=== PATIENT | female | born 1945 | race Caucasian/White ===

== ENCOUNTER → 2016-12-22 | Outpatient (CLI) | payer OTHER, BC ==
[~2016-12-22] MED LIST: ASPCH81 PO; FURO80TA63 PO; METO50TA16 PO; OMEG10007 PO; POTA-335 PO; PRAV20TA PO
--- NOTE | 2016-12-23 12:22 | MAMMOGRAPHY REPORT ---
BILATERAL DIGITAL SCREENING MAMMOGRAM TOMOSYNTHESIS WITH CAD: 12/22/2016 CLINICAL HISTORY: Routine screening. Patient has no complaints. TECHNIQUE: Breast tomosynthesis in addition to standard 2D mammography was performed. Current study was also evaluated with a Computer Aided Detection (CAD) system. COMPARISON: Comparison is made to exams dated: 12/17/2015 mammogram, 12/12/2014 mammogram, 12/06/2013 m ammogram, 11/16/2012 mammogram, 10/28/2011 mammogram, and 10/23/2010 mammogram - [facility]. BREAST COMPOSITION: There are scattered areas of fibroglandular density in both breasts. FINDINGS: There are a few benign-appearing calcifications scattered bilaterally. No suspicious mass, architectural distortion or cluster of suspicious microcalcifications is seen. IMPRESSION: ACR BI-RADS CATEGORY 1: NEGATIVE There is no mammographic evidence of malignancy. A 1 year screening mammogram is recommended. The pa tient will receive written notification of the results. Approximately 10% of breast cancers are not detected with mammography. A negative mammographic report should not delay biopsy if a clinically suggestive mass is present. Lillie Blank M.D. ay/:12/22/2016 16:23:56 Vamp Strap Ironer: Melissa LEONARD(Pretty)(Alex)(BD), [facility] letter sent: Normal 1/2 BI-RADS Code: ACR BI-RADS Category 1: Negative
== END | disposition home or self-care (01) ==
LOC: C.MAMM 09:38
PROVIDERS: ATTEND Obstetrics & Gynecology
DX: Z12.31 Encounter for screening mammogram for malignant neoplasm of breast (principal)

== ENCOUNTER → 2017-07-03 | Outpatient (CLI) | payer OTHER, BC | END | disposition home or self-care (01) | LOC: C.PAPS 15:35 | PROVIDERS: ATTEND Obstetrics & Gynecology | DX: N76.2 Acute vulvitis (principal) ==

== ENCOUNTER 2019-10-13 14:10 | Observation (INO) ==
--- NOTE | 2019-10-13 14:35 | Emergency Department Note ---
History of Present Illness General Chief complaint: Food Bolus Stated complaint: BONE STUCK IN THROAT Time Seen by Provider: 10/13/19 14:18 Source: patient Mode of arrival: ambulatory Limitations: no limitations History of Present Illness Maximum Pain Intensity: 0 This patient is a healthy 74-year-old white female who comes in complaining of "I feel like there is a chicken bone stuck in my throat". She said this happened around 145. There was no episode of choking but she just feels like there is a GI aching pain in her throat she points to the area of about the St apple. She is able to swallow without any difficulty and is not drooling. She has no shortness of breath. No fever or chills there is no actual choking episode. She was well prior to this no recent illness. No chest pain or shortness of breath. No nausea vomiting or diarrhea. She is had no known exposure to COVID. No flulike symptoms. She was seen here at the end of August after she fell and has had some back pain but is doing better. Home Medications Home Medications Medication Instructions Recorded Confirmed Type aspirin 81 mg PO DAILY 01/31/18 10/13/19 History calcium carbonate-vitamin D3 1 tab PO WK 01/31/18 10/13/19 History [Caltrate 600 + D] lisinopril-hydrochlorothiazide 1 tab PO DAILY 01/31/18 10/13/19 History lorazepam 0.5 mg PO TID PRN 01/31/18 10/13/19 History rosuvastatin 5 mg PO DAILY 09/15/19 10/13/19 History Allergies Allergy/AdvReac Type Severity Reaction Status Date / Time aspirin AdvReac Unknown Nausea Verified 09/15/19 17:27 Past Med/Surg History Medical History High cholesterol HTN (hypertension) Obesity Surgical History History of hip surgery Hx of tubal ligation Family History Other No pertinent family history Social History Smoking Status: Never smoker Hx Alcohol Use: No Hx Substance Use: No Preferred Language: Luxembourgish Communication Ability: Effective Visual Impairment: No Limitations Hearing Ability: Normal Videogame Designer Required: No Beliefs That Will Affect Care: None Current Living Situation: Alone current occupational status: retired Feels Safe at Home: Yes Immunizations: Past medical historydenies cardiac disease or diabetes. Denies surgery. Social history denies alcohol and tobacco use Review of Systems A total of 10 systems reviewed and were otherwise negative Physical Exam Vital Signs Vital Signs - 24 hr 10/13/19 14:14 10/13/19 16:14 10/13/19 18:00 Temperature 36.6 C Temperature Source Oral Pulse Rate 96 H Pulse Rate [Finger] 98 H 98 H Pulse Rhythm Regular Pulse Rhythm [Finger] Regular Pulse Strength Normal Pulse Strength [Finger] Normal Respiratory Rate 18 20 18 Respiratory Effort / Characteristics Non-Labored Spontaneous Non-Labored Spontaneous Non-Labored Respiratory Depth Normal Normal Normal Respiratory Pattern Regular Regular Regular Blood Pressure 155/75 H Blood Pressure [Left Arm] 183/70 H 208/96 H Blood Pressure Mean 101 Blood Pressure Mean [Left Arm] 107 133 Blood Pressure Position [Left Arm] Lying Sitting Pulse Oximetry 98 98 95 Oxygen Delivery Method Room Air Room Air Room Air Sepsis Recent Fever Within 48 Hours No Sepsis New/Unexplained Change in Mental Status No Sepsis Action Taken by Nursing No Action Required 10/13/19 19:20 Temperature Temperature Source Pulse Rate 99 H Pulse Rate [Finger] Pulse Rhythm Pulse Rhythm [Finger] Pulse Strength Pulse Strength [Finger] Respiratory Rate 20 Respiratory Effort / Characteristics Respiratory Depth Respiratory Pattern Blood Pressure 158/96 H Blood Pressure [Left Arm] Blood Pressure Mean Blood Pressure Mean [Left Arm] Blood Pressure Position [Left Arm] Pulse Oximetry 95 Oxygen Delivery Method Room Air Sepsis Recent Fever Within 48 Hours Sepsis New/Unexplained Change in Mental Status Sepsis Action Taken by Nursing General: Well developed well nourished non-ill appearing older femaler who appears iin no acute distress, breathing comfortably on room air. Normal speech HEENT: Normal cephalic atraumatic. Pupils are equal round and reactive to light. Extraocular movements are intact. Oropharynx is pink with moist mucous membranes. No swelling of the mouth lips or tongue. No fb seen, no drooling. Neck: Supple with a midline trachea. No meningeal signs or stiffness, no JVD or bruits. No Stridor. Chest: Clear to auscultation bilaterally. No wheezes or rhonchi. No increased work of breathing. Heart: Regular rate and rhythm without murmurs or gallops. Abdomen: Soft nontender, nondistended without rebound guarding or rigidity. Extremities: No cyanosis clubbing or edema. No calf tenderness or assymetry Spine/Back. Non tender to palpation. No CVA tenderness Skin: Good turgor without rashes. Neurologic exam: Cranial nerves two through 12 are intact. Motor and sensation are intact and symmetrical throughout. Course Administered Medications Discontinued Medications Sodium Chloride (Nss) 500 mls @ 999 mls/hr IV .Q31M ONE Stop: 10/13/19 16:14 Last Infusion: 10/13/19 21:20 Dose: 0 mls/hr Documented by: [id number] Admin: 10/13/19 16:02 Dose: 999 mls/hr Documented by: [id number] Metoprolol Tartrate (Lopressor) Confirm Administered Dose 5 mg IV .STK-MED ONE Stop: 10/13/19 20:32 Last Admin: 10/13/19 20:28 Dose: 5 mg Documented by: [id number] Medical Decision Making Differential Diagnosis Foreign body, abrasion, dehydration, airway compromise, abscess, edema Medical Records Attestation: I reviewed the patient's medical records. Home Medications Current Medication List: was personally reviewed by me Laboratory Data Attestation: I reviewed the patient's lab results. Result diagrams: 10/13/19 15:34 10/13/19 15:34 Lab Results 10/13/19 10/13/19 10/13/19 Range/Units 15:34 15:34 15:34 WBC 5.52 (4.8-10.8) K/uL RBC 4.30 (4.2-5.4) M/uL Hgb 14.6 (12.0-16.0) g/dL Hct 41.5 (37-47) % MCV 96.5 (80-100) fL MCH 34.0 (25-34) pg MCHC 35.2 (32-36) g/dL RDW Std Deviation 46.8 H (36.4-46.3) fL RDW Coeff of Gee 13.3 (11.5-14.5) % Plt Count 200 (130-400) K/uL MPV 10.5 H (7.4-10.4) fL Immature Gran % (Auto) 0.2 % Neut % (Auto) 57.6 % Lymph % (Auto) 28.6 % Bandera % (Auto) 11.1 % Eos % (Auto) 2.0 % Baso % (Auto) 0.5 % Neut # (Auto) 3.18 (1.4-6.5) K/uL Lymph # (Auto) 1.58 (1.2-3.4) K/uL Bandera # (Auto) 0.61 H (0.11-0.59) K/uL Eos # (Auto) 0.11 (0-0.5) K/uL Baso # (Auto) 0.03 (0-0.2) K/uL Immature Gran # (Auto) 0.01 (0.00-0.02) K/uL PT 10.1 (9.0-12.0) Seconds INR 1.0 (0.9-1.1) APTT 24.5 (21.0-31.0) Seconds PTT Ratio 0.9 Sodium 138 (136-145) mmol/L Potassium 4.0 (3.5-5.1) mmol/L Chloride 104 (98-107) mmol/L Carbon Dioxide 30 (21-32) mmol/L Anion Gap 4.0 (3-11) BUN 31 H (7-18) mg/dl Creatinine 1.80 H (0.6-1.2) mg/dl Est Cr Clr Drug Dosing 31.6 ml/min Est GFR ( Amer) 31.8 Est GFR (Non-Af Amer) 27.4 BUN/Creatinine Ratio 17.2 (10-20) Glucose 94 (70-99) mg/dl Calcium 9.2 (8.5-10.1) mg/dl COVID-19 PCR (Negative) 10/13/19 Range/Units 15:55 WBC (4.8-10.8) K/uL RBC (4.2-5.4) M/uL Hgb (12.0-16.0) g/dL Hct (37-47) % MCV (80-100) fL MCH (25-34) pg MCHC (32-36) g/dL RDW Std Deviation (36.4-46.3) fL RDW Coeff of Gee (11.5-14.5) % Plt Count (130-400) K/uL MPV (7.4-10.4) fL Immature Gran % (Auto) % Neut % (Auto) % Lymph % (Auto) % Band[place] % (Auto) % Eos % (Auto) % Baso % (Auto) % Neut # (Auto) (1.4-6.5) K/uL Lymph # (Auto) (1.2-3.4) K/uL Bandera # (Auto) (0.11-0.59) K/uL Eos # (Auto) (0-0.5) K/uL Baso # (Auto) (0-0.2) K/uL Immature Gran # (Auto) (0.00-0.02) K/uL PT (9.0-12.0) Seconds INR (0.9-1.1) APTT (21.0-31.0) Seconds PTT Ratio Sodium (136-145) mmol/L Potassium (3.5-5.1) mmol/L Chloride (98-107) mmol/L Carbon Dioxide (21-32) mmol/L Anion Gap (3-11) BUN (7-18) mg/dl Creatinine (0.6-1.2) mg/dl Est Cr Clr Drug Dosing ml/min Est GFR ( Amer) Est GFR (Non-Af Amer) BUN/Creatinine Ratio (10-20) Glucose (70-99) mg/dl Calcium (8.5-10.1) mg/dl COVID-19 PCR NEGATIVE (Negative) Imaging Data Attestation: I personally reviewed and interpreted this imaging study as follows: Radiologist's Impression: CT SCAN OF THE NECK WITHOUT IV CONTRAST CLINICAL HISTORY: Foreign body ingestion. The patient swallowed a chicken bone. COMPARISON STUDY: No priors. TECHNIQUE: Unenhanced CT scan of the soft tissues of the neck was performed from the skull base to the upper chest. Images are reviewed in the axial, sagittal, and coronal planes. IV contrast was not administered for this examination. A dose lowering technique was utilized adhering to the principles of ALARA. CT DOSE: 679.92 mGycm FINDINGS: Pharynx: There is approximately 5 cm linear radiodense foreign body identified in the pharynx. This extends from the level of the left palatine tonsil into the right vallecula, and is best seen on axial image #122. This is consistent with the reported history of an ingested chicken bone. The unenhanced pharyngeal soft tissues are otherwise normal in appearance. The pharyngeal airway is patent. There is no evidence of mass lesion. The vocal cords are symmetric. The parapharyngeal fat is well maintained. The prevertebral/retropharyngeal soft tissues are within normal limits. The patient is edentulous. Lymphadenopathy: No cervical lymphadenopathy is seen Thyroid: Normal in size and attenuation. Salivary glands: The parotid and submandibular glands are within normal limits. Brain parenchyma: There is age-related involutional change. A chronic lacunar infarct is noted in the left crowder radiata. Skeletal structures: The skeletal structures are osteopenic. Imaged portions of the calvarium at the skull base are within normal limits. The cervical spine is maintained noting multilevel spondylosis. No lytic or blastic lesion is seen. Sinuses and mastoids: Fluid is noted within the sphenoid sinuses. The remaining paranasal sinuses are clear. The mastoid air cells are well pneumatized. Orbits: The bony orbits are intact. Orbital contents are normal in appearance noting bilateral ocular lens implants. Lung apices: Visualized apical lung parenchyma is clear. IMPRESSION: 1. An approximately 5 cm linear radiodense foreign body is present in the pharyngeal soft tissues as above. This is consistent with the reported history of a swallowed chicken bone. 2. The pharyngeal soft tissues are otherwise normal in appearance. The airway is patent. 3. Additional findings as above. XR chest 1V portable HISTORY: 74 years-old Female eval for fb acute dysphasia with possible foreign body COMPARISON: None TECHNIQUE: Portable AP view of the chest FINDINGS: Cardiac mediastinal and hilar silhouettes are within normal limits. There is no pneumothorax, pleural effusion, airspace consolidation or overt pulmonary edema. No opaque foreign body. Degenerative changes of the shoulders and spine. IMPRESSION: No acute process. Blood Pressure Blood Pressure Findings: Elevated blood pressure Blood Pressure Disposition: elevated BP felt to be situational MDM Narrative This patient comes in as described above. She was placed in room C9. She has a sensation that there could be a chicken bone in her throat she looks well she is not hypoxemic. She is speaking and swallowing without difficulty there is no stridor or drooling. She is handling secretions. There is no episode of choking. It is possible she does have a chicken bone or other foreign body but it is also possible she could have an abrasion or scratch. I did order a noncontrast CT to evaluate these possibilities. She was reassessed frequently. The CT does show a foreign body/chicken bone higher up along the vallecula. I did consult Dr. Gallegos from ENT. in the meantime, we establish an IV hydrated her with normal saline and kept her n.p.o. She was also rapid COVID tested given that she was going to have a procedure. This came back negative. The patient felt like it felt different and was no longer jabbing pain with some minimal discomfort. Dr. Gallegos looked at her in the ER and scoped her and did not find any residual foreign body. I did a chest x-ray and there is no foreign body seen in the lungs. She has no chest pain or shortness breath or cough. I think consulted Dr. Crockett from GI who feels that she should still be scoped from a GI standpoint and observed overnight. [facility]. Crockett will be performing the scope in the OR. Impression & Plan FB esophagus, Swallowed chicken bone Discharge Plan Visit Data *Final* Discharge Date/Time: 10/13/19 19:20 Chief Complaint: Food Bolus Stated Complaint: BONE STUCK IN THROAT ED Provider: Víctor Cool Discharge Problem: FB esophagus, Swallowed chicken bone Patient Disposition: Still a Patient Discharge Instructions Interventions: ED Discharge Assessment Last Done: 10/13/19 19:20 Discharge Problem: FB esophagus Qualifiers: Encounter type: initial encounter Qualified Code(s): T18.108A - Unspecified foreign body in esophagus causing other injury, initial encounter Swallowed chicken bone Qualifiers: Encounter type: initial encounter Qualified Code(s): T18.9XXA - Foreign body of alimentary tract, part unspecified, initial encounter
--- NOTE | 2019-10-13 15:03 | CT Scan Report ---
CT SCAN OF THE NECK WITHOUT IV CONTRAST CLINICAL HISTORY: Foreign body ingestion. The patient swallowed a chicken bone. COMPARISON STUDY: No priors. TECHNIQUE: Unenhanced CT scan of the soft tissues of the neck was performed from the skull base to th e upper chest. Images are reviewed in the axial, sagittal, and coronal planes. IV contrast was not a dministered for this examination. A dose lowering technique was utilized adhering to the principles of ALARA. CT DOSE: 679.92 mGycm FINDINGS: Pharynx: There is approximately 5 cm linear radiodense foreign body identified in the pharynx. This e xtends from the level of the left palatine tonsil into the right vallecula, and is best seen on axial image #122. This is consistent with the reported history of an ingested chicken bone. The unenhanced pharyngeal soft tissues are otherwise normal in appearance. The pharyngeal airway is patent. There i s no evidence of mass lesion. The vocal cords are symmetric. The parapharyngeal fat is well maintaine d. The prevertebral/retropharyngeal soft tissues are within normal limits. The patient is edentulous. Lymphadenopathy: No cervical lymphadenopathy is seen Thyroid: Normal in size and attenuation. Salivary glands: The parotid and submandibular glands are within normal limits. Brain parenchyma: There is age-related involutional change. A chronic lacunar infarct is noted in the left crowder radiata. Skeletal structures: The skeletal structures are osteopenic. Imaged portions of the calvarium at the skull base are within normal limits. The cervical spine is maintained noting multilevel spondylosis. No lytic or blastic lesion is seen. Sinuses and mastoids: Fluid is noted within the sphenoid sinuses. The remaining paranasal sinuses are clear. The mastoid air cells are well pneumatized. Orbits: The bony orbits are intact. Orbital contents are normal in appearance noting bilateral ocular lens implants. Lung apices: Visualized apical lung parenchyma is clear. IMPRESSION: 1. An approximately 5 cm linear radiodense foreign body is present in the pharyngeal soft tissues as above. This is consistent with the reported history of a swallowed chicken bone. 2. The pharyngeal soft tissues are otherwise normal in appearance. The airway is patent. 3. Additional findings as above. ACT 112: Negative or not required by law. Electronically signed by: Axel Hoyt M.D. 10/13/2019 3:02 PM
[2019-10-13] MEDS ORDERED: SODIUM CHLORIDE 0.9% 500 ML IV ONE (15:44)
[2019-10-13] MEDS ORDERED: SODIUM CHLORIDE 0.9% 1000ML 1,000 ML IV SCH ×2 (15:45→21:07)
[2019-10-13 15:51] LABS: Basophils # (auto) 0.03 K/uL (0-0.2); Basophils % (auto) 0.5 %; Eosinophils # (auto) 0.11 K/uL (0-0.5); Hematocrit (blood only) 41.5 % (37-47); Hemoglobin 14.6 g/dL (12.0-16.0); Immature Granulocytes # (auto) 0.01 K/uL (0.00-0.02); Immature Granulocytes % (auto) 0.2 %; Lymphocytes # (auto) 1.58 K/uL (1.2-3.4); Lymphocytes % (auto) 28.6 %; Mean Corpuscular Hgb Conc 35.2 g/dL (32-36); Mean Corpuscular Volume 96.5 fL (80-100); Mean Platelet Volume 10.5 fL (7.4-10.4); Monocytes # (auto) 0.61 K/uL (0.11-0.59); Monocytes % (auto) 11.1 %; Neutrophils # (auto) 3.18 K/uL (1.4-6.5); Neutrophils % (auto) 57.6 %; Platelet Count 200 K/uL (130-400); RDW Coefficient of Variation 13.3 % (11.5-14.5); RDW Standard Deviation 46.8 fL (36.4-46.3); White Blood Count 5.52 K/uL (4.8-10.8)
[2019-10-13 15:59] LABS: BUN Creatinine Ratio 17.2 (10-20); Calcium 9.2 mg/dl (8.5-10.1); Creatinine Clr Calc Pharmacy 31.6 ml/min; Est GFR (African American) 31.8; Est GFR (Non-African American) 27.4
[2019-10-13 16:02] LABS: Partial Thromboplastin Ratio 0.9; Partial Thromboplastin Time 24.5 Seconds (21.0-31.0); Prothrombin Time 10.1 Seconds (9.0-12.0)
--- NOTE | 2019-10-13 17:44 | XRay Report ---
XR chest 1V portable HISTORY: 74 years-old Female eval for fb acute dysphasia with possible foreign body COMPARISON: None TECHNIQUE: Portable AP view of the chest FINDINGS: Cardiac mediastinal and hilar silhouettes are within normal limits. There is no pneumothorax, pleural effusion, airspace consolidation or overt pulmonary edema. No opaque foreign body. Degenerative knapp ges of the shoulders and spine. IMPRESSION: No acute process. ACT 112: Negative or not required by law. The above report was generated using voice recognition software. It may contain grammatical, syntax o r spelling errors. Electronically signed by: Matthew Mccain M.D. 10/13/2019 5:43 PM
--- NOTE | 2019-10-13 18:56 | History & Physical Report ---
Date of Service October 13, 2019 Assessment & Plan (1) Dysphagia: (2) FB esophagus: This is a 74-year-old female with PMH of hypertension, CKD III and dyslipidemia who presents with dysphasia after swallowing chicken bone during lunch today. -Soft tissue neck CT revealed 5 cm linear radiodense foreign body is present in the pharyngeal soft tissues as above that is consistent with the reported history of a swallowed chicken bone -Evaluated by ENT with laryngoscope but no evidence of foreign body -GI was consulted, with plans for emergent EGD to further evaluate. COVID screen negative -Keep NPO. Resume diet once on the floor per GI (3) Acute kidney injury superimposed on CKD: Creatinine elevated at 1.8 (baseline Cr ~1) -Hold lisinopril/hydrochlorothiazide, gentle fluids -Trend BMP daily (4) HTN (hypertension): BP initially elevated at 208/96 but repeat BP 158/96 with larger cuff -Holding lisinopril/HCTZ in setting of VENICE -Add additional antihypertensive agents if needed (5) Anxiety: Continue Ativan as needed (6) High cholesterol: Continue statin DVT Ppx: SCDs Code status: DNR PCP: Ras Moreno Dispo: Observation med tele. Plan to return home once medically stable. Patient seen in collaboration with Dr. Niño. Please see addendum. History of Present Illness Chief Complaint: Dysphasia Primary Care Provider: Mamta Moreno, This is a 74-year-old female with PMH of hypertension, CKD 3 and dyslipidemia who presents with dysphasia. Was eating chicken for lunch today lunch around 145 today and felt like a bone got caught in her throat. Denies any difficulty swallowing, nausea or vomiting. Came to the ED for further evaluation. Soft tissue neck CT revealed 5 cm linear radiodense foreign body is present in the pharyngeal soft tissues as above that is consistent with the reported history of a swallowed chicken bone. ED provider consulted ENT but laryngoscope did not reveal foreign body. GI was consulted, with plans for emergent EGD to further evaluate. COVID screen negative. Currently, patient feels well despite some mild discomfort in the feeling of something in her throat. Denies any fever, chills, lightheadedness, headache, chest pain, shortness of breath, abdominal pain, nausea, vomiting, dysuria, diarrhea or constipation. Allergies Allergy/AdvReac Type Severity Reaction Status Date / Time aspirin AdvReac Unknown Nausea Verified 09/15/19 17:27 Home Medications Home Medications Medication Instructions Recorded Confirmed Type aspirin 81 mg PO DAILY 01/31/18 10/13/19 History calcium carbonate-vitamin D3 1 tab PO WK 01/31/18 10/13/19 History [Caltrate 600 + D] lisinopril-hydrochlorothiazide 1 tab PO DAILY 01/31/18 10/13/19 History lorazepam 0.5 mg PO TID PRN 01/31/18 10/13/19 History rosuvastatin 5 mg PO DAILY 09/15/19 10/13/19 History Past Med/Surg History Medical History High cholesterol HTN (hypertension) Obesity Surgical History History of hip surgery Hx of tubal ligation Family History Other No pertinent family history Social History Smoking Status: Never smoker Hx Alcohol Use: No Hx Substance Use: No Preferred Language: Colombian Communication Ability: Effective Visual Impairment: No Limitations Hearing Ability: Normal Land Classifier Required: No Beliefs That Will Affect Care: None Current Living Situation: Alone current occupational status: retired Feels Safe at Home: Yes Review of Systems Review of Systems: At least ten systems reviewed and negative except as noted in the HPI. Physical Exam Physical Exam: General Appearance: WD/WN, vitals as above, NAD, sitting in bedside chair, pleasant, conversing easily Head: normocephalic, atraumatic Eyes: normal inspection, PERRL, conjunctivae normal, anicteric sclerae ENT: external ear and nose normal, oropharynx normal, no visualization of foreign body Neck: trachea midline, no thyromegaly normal visual inspection Respiratory: normal respiratory effort, lungs clear to auscultation, no wheeze, rales, rhonchi. Normal insp/exp effort, no accessory muscle use Cardiovascular: regular rate, rhythm, no murmur, normal peripheral pulses. Vessels: no JVD Chest: normal inspection of chest Abdomen/GI: normal bowel sounds, soft, nontender, no hepatosplenomegaly Extremities/Musculoskeletal: no cyanosis or clubbing, extremities motor strength 5/5 Neurologic: PERRL, EOMI, accommodation nl, no face palsy, no dysarthria, CN's II-XI intact bilaterally and moves all extremities Psychiatric: A+Ox3, euthymic affect Skin: no rashes, normal color, warm/dry Results & Data Results & Data ([place]) Vital Signs (Past 12 Hours) Vital Signs Temp Pulse Pulse Resp BP BP Pulse Ox 10/13/19 18:00 98 H 18 208/96 H 95 10/13/19 16:14 98 H 20 183/70 H 98 10/13/19 14:14 36.6 C 96 H 18 155/75 H 98 Laboratory Results Short CBC 10/13/19 10/13/19 Range/Units 15:34 15:34 WBC 5.52 (4.8-10.8) K/uL Hgb 14.6 (12.0-16.0) g/dL Hct 41.5 (37-47) % Plt Count 200 (130-400) K/uL Creatinine 1.80 H (0.6-1.2) mg/dl BMP 10/13/19 15:34 Sodium 138 Potassium 4.0 Chloride 104 Carbon Dioxide 30 BUN 31 H Creatinine 1.80 H Glucose 94 Calcium 9.2 Diagnostic Findings Soft tissue neck CT: IMPRESSION: 1. An approximately 5 cm linear radiodense foreign body is present in the pharyngeal soft tissues as above. This is consistent with the reported history of a swallowed chicken bone. 2. The pharyngeal soft tissues are otherwise normal in appearance. The airway is patent. 3. Additional findings as above. CXR: IMPRESSION: No acute process. Supervising Physician Co-Signing Physician Notes Care coordinated with Sarika Isaac PA-C. Agree with above note. Patient seen and examined. Please refer to her notes for full details. Vital signs reviewed. Physical exam: General exam: Alert and oriented. Not in acute distress. CVS: S1 and S2 heard, regular rate and rhythm, no murmurs. RS: Clear to auscultation, no wheezing or crackles. ABD: Soft, bowel sounds present, nontender, no distention. JAVA MANAGER: Nonfocal. EXT: No edema, no erythema. Labs: Reviewed. Assessment and plan: 74F presented chicken bone stuk in throat. NO SOb. Was Nauseous. S/p emergent egd and removal of food bolus. Currently hemodynamically stable, able to take clear liquid diet. Started on fluids for [place]. Cr 1.8. Holding lisinopril/hctz. Iv hydralazine prn. Speech consult in am. Followup labs in am. Other diagnosis and plan of care as per Sarika nelson MD. (1) FB esophagus Encounter type: initial encounter Qualified Code(s): T18.108A - Unspecified foreign body in esophagus causing other injury, initial encounter
--- NOTE | 2019-10-13 18:57 | Gastrointestinal Consultation ---
Date of Consultation October 13, 2019 Assessment & Plan (1) Dysphagia: (2) Abnormal CT scan: chicken bone in the GI tract, ENT scope negative. Given the risks of pressure necrosis over time in the esophagus and possible perforation, this patient needs an emergent EGD. Recs: Proceed with emergent EGD to further evaluate risks/benefits and procedure discussed with patient, who agrees to proceed keep NPO History of Present Illness History of Present Illness 74 yo female here with dysphagia. She ate chicken earlier today around 2 pm and feels like a chicken bone was caught in her throat. CT soft tissues shows 5 cm foreign body. ENT performed a laryngoscope and did not find anything. GI consulted for further evaluation. Patient is saturatiing well, no n/v nor diarrhea, covid testing in ER is negative. labs reviewed Allergies Allergy/AdvReac Type Severity Reaction Status Date / Time aspirin AdvReac Unknown Nausea Verified 09/15/19 17:27 Home Medications Home Medications Medication Instructions Recorded Confirmed Type aspirin 81 mg PO DAILY 01/31/18 10/13/19 History calcium carbonate-vitamin D3 1 tab PO WK 01/31/18 10/13/19 History [Caltrate 600 + D] lisinopril-hydrochlorothiazide 1 tab PO DAILY 01/31/18 10/13/19 History lorazepam 0.5 mg PO TID PRN 01/31/18 10/13/19 History rosuvastatin 5 mg PO DAILY 09/15/19 10/13/19 History Patient History Social History Smoking Status: Never smoker Preferred Language: [place] Communication Ability: Effective Visual Impairment: No Limitations Hearing Ability: Normal Beliefs That Will Affect Care: None current occupational status: retired Feels Safe at Home: Yes Review of Systems Constitutional: no fever, no chills and no weight loss Eyes: as per Subjective / HPI Ear, Nose, Mouth, Throat: as per Subjective / HPI Respiratory: no dyspnea and no dyspnea on exertion Cardiovascular: no chest pain and no palpitations Gastrointestinal: as per Subjective / HPI Musculoskeletal: no joint pain and no swelling Integumentary: no rash and no lesions Neurologic: no numbness and no paresthesia Psychiatric: no depression and no anxiety Endocrine: no fatigue Hematologic / Lymphatic: no easy bleeding and no easy bruising Physical Exam Constitutional: WD/WN, vitals as above Eyes: EOM intact bilaterally Neck: normal visual inspection Respiratory: normal respiratory effort, lungs clear to auscultation Cardiovascular: RRR, no murmur, no edema Gastrointestinal (Abdomen): Inspection/Auscultation: abdomen normal to inspection; abdomen not distended Percussion/Palpation: abdomen soft; abdomen nontender and no hepatosplenomegaly Musculoskeletal: Extremities: no cyanosis Gait: normal gait Skin: no rashes, warm and dry Neurologic: moves all extremities Psychiatric: A+Ox3, euthymic affect Results & Data ([facility]) Vital Signs (Past 12 Hours) Vital Signs Temp Pulse Pulse Resp BP BP Pulse Ox 10/13/19 18:00 98 H 18 208/96 H 95 10/13/19 16:14 98 H 20 183/70 H 98 10/13/19 14:14 36.6 C 96 H 18 155/75 H 98 PG Care Time/CCT Total # of Minutes Spent Total Time Spent with Patient: Total time spent is greater than 50% in coordination of care (as documented) at patient's floor/unit and/or counseling patient: Coding Level of Care Code 85526 Initial Inpt Care Lvl 3 Diagnoses Dysphagia R13.[address] scan R93.89
--- NOTE | 2019-10-13 19:07 | Anesthesiology Consultation ---
Date of Service October 13, 2019 Assessment & Plan (1) Encounter for pre-operative examination: Chart Review Chart Review: Acceptable Risk for Surgery and Patient NOT seen in Pre Admission Testing covid screen 10/13/2019 negative Consults Requested none History Surgery Operation Date: 10/13/19 19:05 Proposed Procedures p EGD Food Bolus - Manfred Crockett MD Height/Weight Height: 5 ft 3 in Weight: 101 kg Allergies Allergy/AdvReac Type Severity Reaction Status Date / Time aspirin AdvReac Unknown Nausea Verified 09/15/19 17:27 Medications Home Medications Medication Instructions Recorded Confirmed Last Taken aspirin 81 mg PO DAILY 01/31/18 10/13/19 01/31/18 calcium carbonate-vitamin D3 1 tab PO WK 01/31/18 10/13/19 Unknown [Caltrate 600 + D] lisinopril-hydrochlorothiazide 1 tab PO DAILY 01/31/18 10/13/19 01/31/18 lorazepam 0.5 mg PO TID PRN 01/31/18 10/13/19 01/30/18 rosuvastatin 5 mg PO DAILY 09/15/19 10/13/19 Unknown NPO Date Last Intake of Fluids: 10/13/19 Time Last Intake of Fluids: 13:45 Date Last Intake of Solids: 10/13/19 Time Last Intake of Solids: 13:45 Past Medical History Medical History High cholesterol HTN (hypertension) Past Family History Family History Other No pertinent family history Past Surgical History Surgical History Hx of tubal ligation Social History Smoking Status: Never smoker Physical Exam Vital Signs Last Vital Signs Temp 36.6 C 10/13/19 14:14 Pulse 98 H 10/13/19 18:00 Resp 18 10/13/19 18:00 BP 208/96 H 10/13/19 18:00 Pulse Ox 95 10/13/19 18:00 Testing Laboratory Results 10/13/19 15:34 10/13/19 15:34 PT 10.1 Seconds (9.0-12.0) 10/13/19 15:34 INR 1.0 (0.9-1.1) 10/13/19 15:34 APTT 24.5 Seconds (21.0-31.0) 10/13/19 15:34 Chest X-Ray Date: 10/13/19 XR chest 1V portable HISTORY: 74 years-old Female eval for fb acute dysphasia with possible foreign body COMPARISON: None TECHNIQUE: Portable AP view of the chest FINDINGS: Cardiac mediastinal and hilar silhouettes are within normal limits. There is no pneumothorax, pleural effusion, airspace consolidation or overt pulmonary edema. No opaque foreign body. Degenerative changes of the shoulders and spine. IMPRESSION: No acute process. Other Testing CT scan neck 10/13/2019: CT SCAN OF THE NECK WITHOUT IV CONTRAST CLINICAL HISTORY: Foreign body ingestion. The patient swallowed a chicken bone. COMPARISON STUDY: No priors. TECHNIQUE: Unenhanced CT scan of the soft tissues of the neck was performed from the skull base to the upper chest. Images are reviewed in the axial, sagittal, and coronal planes. IV contrast was not administered for this examination. A dose lowering technique was utilized adhering to the principles of ALARA. CT DOSE: 679.92 mGycm FINDINGS: Pharynx: There is approximately 5 cm linear radiodense foreign body identified in the pharynx. This extends from the level of the left palatine tonsil into the right vallecula, and is best seen on axial image #122. This is consistent with the reported history of an ingested chicken bone. The unenhanced pharyngeal soft tissues are otherwise normal in appearance. The pharyngeal airway is patent. There is no evidence of mass lesion. The vocal cords are symmetric. The parapharyngeal fat is well maintained. The prevertebral/retropharyngeal soft tissues are within normal limits. The patient is edentulous. Lymphadenopathy: No cervical lymphadenopathy is seen Thyroid: Normal in size and attenuation. Salivary glands: The parotid and submandibular glands are within normal limits. Brain parenchyma: There is age-related involutional change. A chronic lacunar infarct is noted in the left crowder radiata. Skeletal structures: The skeletal structures are osteopenic. Imaged portions of the calvarium at the skull base are within normal limits. The cervical spine is maintained noting multilevel spondylosis. No lytic or blastic lesion is seen. Sinuses and mastoids: Fluid is noted within the sphenoid sinuses. The remaining paranasal sinuses are clear. The mastoid air cells are well pneumatized. Orbits: The bony orbits are intact. Orbital contents are normal in appearance noting bilateral ocular lens implants. Lung apices: Visualized apical lung parenchyma is clear. IMPRESSION: 1. An approximately 5 cm linear radiodense foreign body is present in the pharyngeal soft tissues as above. This is consistent with the reported history of a swallowed chicken bone. 2. The pharyngeal soft tissues are otherwise normal in appearance. The airway is patent. 3. Additional findings as above.
[2019-10-13] MEDS ORDERED: NEOSTIGMINE METHYLSULFATE 5 MG/5 ML SYR ONE (19:08)
[2019-10-13] MEDS ORDERED: ONDANSETRON INJ 2 MG/ML 2 ML VIAL ONE (19:08)
[2019-10-13] MEDS ORDERED: GLYCOPYRROLATE 0.2 MG/ML VIAL ONE (19:08)
[2019-10-13] MEDS ORDERED: LIDOCAINE HCL 2% 2 ML VIAL/AMP(20MG/ML) INFIL ONE (19:08)
[2019-10-13] MEDS ORDERED: PROPOFOL IV EMULSION 10 MG/ML 20 ML VIAL IV ONE (19:08)
[2019-10-13] MEDS ORDERED: DEXAMETHASONE SOD INJ 4 MG/ML VIAL ONE (19:08)
[2019-10-13] MEDS ORDERED: PHENYLEPHRINE 100MCG/ML 5ML SYR IV PRN (19:37)
[2019-10-13] MEDS ORDERED: MEPERIDINE HCL 25 MG/ML CARP/VIAL IV PRN (19:37)
[2019-10-13] MEDS ORDERED: HYDROmorphone INJ 1 MG/ML SYRINGE IV PRN (19:37)
[2019-10-13] MEDS ORDERED: fentaNYL citrate 100 MCG/2 ML VIAL IV PRN (19:37)
[2019-10-13] MEDS ORDERED: ePHEDrine sulfate 50 MG/ML AMP IV PRN (19:37)
[2019-10-13] MEDS ORDERED: LABETALOL HCL IV 5 MG/ML 20ML IV PRN (19:37)
[2019-10-13] MEDS ORDERED: ATROPINE SULFATE 0.1 MG/ML 10ML SYR IV PRN (19:37)
[2019-10-13] MEDS ORDERED: ONDANSETRON INJ 2 MG/ML 2 ML VIAL IV PRN (19:37)
[2019-10-13] MEDS ORDERED: SUCCINYLCHOLINE CHLORIDE 20 MG/ML 10 ML VIAL IV ONE (19:44)
--- NOTE | 2019-10-13 19:50 | Anesthesiology Consultation ---
Date of Service October 13, 2019 The patient tested negative for Covid 19 today. Assessment & Plan (1) Encounter for pre-operative examination: Chart Review Chart Review: Acceptable Risk for Surgery (emergency surgery) and Patient NOT seen in Pre Admission Testing Consults Requested none History Surgery Operation Date: 10/13/19 19:05 Proposed Procedures p EGD Food Bolus - Manfred Crockett MD Height/Weight Height: 5 ft 3 in Weight: 101 kg Allergies Allergy/AdvReac Type Severity Reaction Status Date / Time aspirin AdvReac Unknown Nausea Verified 09/15/19 17:27 Medications Home Medications Medication Instructions Recorded Confirmed Last Taken aspirin 81 mg PO DAILY 01/31/18 10/13/19 01/31/18 calcium carbonate-vitamin D3 1 tab PO WK 01/31/18 10/13/19 Unknown [Caltrate 600 + D] lisinopril-hydrochlorothiazide 1 tab PO DAILY 01/31/18 10/13/19 01/31/18 lorazepam 0.5 mg PO TID PRN 01/31/18 10/13/19 01/30/18 rosuvastatin 5 mg PO DAILY 09/15/19 10/13/19 Unknown NPO Date Last Intake of Fluids: 10/13/19 Time Last Intake of Fluids: 13:45 Date Last Intake of Solids: 10/13/19 Time Last Intake of Solids: 13:45 Past Medical History Medical History (Updated 10/13/19 @ 19:51 by Baltazar Forrester MD) High cholesterol HTN (hypertension) Obesity Past Family History Family History Other No pertinent family history Past Surgical History Surgical History History of hip surgery Hx of tubal ligation Social History Smoking Status: Never smoker Physical Exam Vital Signs Last Vital Signs Temp 36.6 C 10/13/19 14:14 Pulse 99 H 10/13/19 19:20 Resp 20 10/13/19 19:20 BP 158/96 H 10/13/19 19:20 Pulse Ox 95 10/13/19 19:20 Testing Laboratory Results 10/13/19 15:34 10/13/19 15:34 PT 10.1 Seconds (9.0-12.0) 10/13/19 15:34 INR 1.0 (0.9-1.1) 10/13/19 15:34 APTT 24.5 Seconds (21.0-31.0) 10/13/19 15:34 Electrocardiogram Date: 10/13/19 SR with occasional PVCs, low voltage QRS, rate 98 Chest X-Ray Date: 10/13/19 XR chest 1V portable HISTORY: 74 years-old Female eval for fb acute dysphasia with possible foreign body COMPARISON: None TECHNIQUE: Portable AP view of the chest FINDINGS: Cardiac mediastinal and hilar silhouettes are within normal limits. There is no pneumothorax, pleural effusion, airspace consolidation or overt pulmonary edema. No opaque foreign body. Degenerative changes of the shoulders and spine. IMPRESSION: No acute process. Other Testing CT scan neck 10/13/2019: CT SCAN OF THE NECK WITHOUT IV CONTRAST CLINICAL HISTORY: Foreign body ingestion. The patient swallowed a chicken bone. COMPARISON STUDY: No priors. TECHNIQUE: Unenhanced CT scan of the soft tissues of the neck was performed from the skull base to the upper chest. Images are reviewed in the axial, sagittal, and coronal planes. IV contrast was not administered for this examination. A dose lowering technique was utilized adhering to the principles of ALARA. CT DOSE: 679.92 mGycm FINDINGS: Pharynx: There is approximately 5 cm linear radiodense foreign body identified in the pharynx. This extends from the level of the left palatine tonsil into the right vallecula, and is best seen on axial image #122. This is consistent with the reported history of an ingested chicken bone. The unenhanced pharyngeal soft tissues are otherwise normal in appearance. The pharyngeal airway is patent. There is no evidence of mass lesion. The vocal cords are symmetric. The parapharyngeal fat is well maintained. The prevertebral/retropharyngeal soft tissues are within normal limits. The patient is edentulous. Lymphadenopathy: No cervical lymphadenopathy is seen Thyroid: Normal in size and attenuation. Salivary glands: The parotid and submandibular glands are within normal limits. Brain parenchyma: There is age-related involutional change. A chronic lacunar infarct is noted in the left crowder radiata. Skeletal structures: The skeletal structures are osteopenic. Imaged portions of the calvarium at the skull base are within normal limits. The cervical spine is maintained noting multilevel spondylosis. No lytic or blastic lesion is seen. Sinuses and mastoids: Fluid is noted within the sphenoid sinuses. The remaining paranasal sinuses are clear. The mastoid air cells are well pneumatized. Orbits: The bony orbits are intact. Orbital contents are normal in appearance noting bilateral ocular lens implants. Lung apices: Visualized apical lung parenchyma is clear. IMPRESSION: 1. An approximately 5 cm linear radiodense foreign body is present in the pharyngeal soft tissues as above. This is consistent with the reported history of a swallowed chicken bone. 2. The pharyngeal soft tissues are otherwise normal in appearance. The airway is patent. 3. Additional findings as above.
--- NOTE | 2019-10-13 20:06 | ENT Consultation ---
Date of Consultation October 13, 2019 Assessment & Plan (1) Swallowed chicken bone: 74-year-old female seen in the emergency room for chief complaint of swallowed a chicken bone" with a 5 cm radiopaque foreign body seen on CT neck without contrast extending from the left tonsillar fossa to the right-sided of the vallecula. Patient noted significant improvement in her foreign body sensation prior to my examination, and no foreign body was noted on flexible laryngoscopy or direct oropharyngeal exam today. I suspect the patient has swallowed the chicken bone. Follow-up chest x-ray shows no evidence of airway foreign body, and she has no symptoms consistent with that diagnosis including cough, wheezing, dyspnea, desaturation. -no intervention from ENT perspective -discussed with Dr. Cool of the emergency room, he will contact GI for further evaluation -patient should be counseled regarding symptoms consistent with an airway foreign body and should return immediately to the emergency room should she experience any symptoms consistent with this diagnosis -follow up with ENT as needed History of Present Illness Reason for Consultation: Oropharyngeal foreign body History of Present Illness 74-year-old female with a history of hypertension, hyperlipidemia seen in the emergency room for evaluation of oropharyngeal foreign body. Patient reports at 1:45 p.m. she was eating chicken and felt something lodge in her throat. She presented to the emergency department for this reason and CT neck without contrast showed an approximately 5 cm radiopaque foreign body extending from the left tonsillar fossa to the right vallecula, consistent with a chicken bone. Patient describes ongoing sensation that something was "jagging" her throat until performance of her COVID swab, at which time the sensation resolved. She denies drooling, dysphagia, throat pain, significant globus sensation. No voice changes, dyspnea, wheezing, stridor. She denies coughing. Allergies Allergy/AdvReac Type Severity Reaction Status Date / Time aspirin AdvReac Unknown Nausea Verified 09/15/19 17:27 Home Medications Home Medications Medication Instructions Recorded Confirmed Type aspirin 81 mg PO DAILY 01/31/18 10/13/19 History calcium carbonate-vitamin D3 1 tab PO WK 01/31/18 10/13/19 History [Caltrate 600 + D] lisinopril-hydrochlorothiazide 1 tab PO DAILY 01/31/18 10/13/19 History lorazepam 0.5 mg PO TID PRN 01/31/18 10/13/19 History rosuvastatin 5 mg PO DAILY 09/15/19 10/13/19 History Patient History Medical History High cholesterol HTN (hypertension) Obesity Surgical History History of hip surgery Hx of tubal ligation Family History Other No pertinent family history Social History Smoking Status: Never smoker Preferred Language: Slovenian Communication Ability: Effective Visual Impairment: No Limitations Hearing Ability: Normal Beliefs That Will Affect Care: None Current Living Situation: Alone current occupational status: retired Feels Safe at Home: Yes Review of Systems Review of Systems: All systems reviewed & are unremarkable except as noted in HPI & below Physical Exam Physical Exam: General: The patient is well-developed, well-nourished, and in no acute distress. OBESE. MANAGING SECRETIONS EASILY. NORMAL VOICE. NO INCREASED WORK OF BREATHING OR STRIDOR. NO DROOLING. Head and Face: Skull: No obvious deformities Sinus tenderness: There is no tenderness to palpation of the sinuses. Salivary glands: The parotid and submandibular glands are normal in appearance and there are no masses on palpation. Facial strength: Facial motion is symmetric and without weakness. Eyes: Eyelids: There is no periorbital edema. Conjunctiva: There is no conjunctival erythema. Pupils: The pupils are equal, round, and reactive to light. Extraocular muscles: Extraocular movement is normal. Nystagmus: There is no nystagmus. Ears: Right auricle: The pinna is normally formed without skin lesion or mass. Left auricle: The pinna is normally formed without skin lesion or mass. Right EAC: MILD CERUMEN. There is no external auditory canal erythema, edema, lesion, or mass. Left EAC: MODERATE CERUMEN. There is no external auditory canal erythema, edema, lesion, or mass. Right TM/middle ear: TM is intact without perforation, flat, and translucent. The middle ear space is clear Left TM/middle ear: TM is intact without perforation, flat, and translucent. The middle ear space is clear Hearing: Clinical speech environmental compliance engineer threshold testing is grossly normal. Nose: External: There is no gross external deformity, tenderness, or skin lesion or mass. Mucosa: There is no nasal mucosal edema, inflammation, lesion, or mass. Septum: The nasal septum is midline. Nasal cavity: There is no inferior turbinate hypertrophy, edema, inflammation, or mass bilaterally. The inferior meatus and middle meatus were clear bilaterally without mass, lesion, mucopurulence, or polyposis. Oral cavity/Oropharynx: Lips: There are no lip lesions or masses. Oral cavity: There is no inflammation, lesion, or mass involving the gums, gingiva, floor of mouth, buccal mucosa, retromolar trigone, hard palate, soft palate, tongue. EDENTULOUS Oropharynx: There is no inflammation, lesion, or mass involving the palatine tonsils or posterior pharyngeal wall. NO EVIDENCE OF OROPHARYNGEAL LACERATION OR NOTABLE FOREIGN BODY ON DIRECT OROPHARYNGEAL EXAM Neck: General: There are no visible scars or lesions involving the neck. There are no visible or palpable masses involving the neck. The trachea is midline. Lymph nodes: There is no visible or palpable neck lymphadenopathy. Thyroid: There is no visible or palpable thyroid enlargement or nodularity. Respiratory/Pulmonary: There is no stertor or stridor. There is normal respiratory effort without acute distress. Cardiovascular: There is no visible extremity edema. Skin: There are no visible lesions or masses involving the skin of the head and neck region. Neurological: Cranial nerves: Cranial nerve II is noted to be intact by grossly normal visual acuity. Cranial nerves III, IV, and are noted to be intact by normal extraocular movements. Cranial nerve V is noted to be intact by normal facial sensation. Cranial nerve VII is noted to be intact by symmetric and normal facial movement. Cranial nerve VIII is noted to be intact by a relatively normal clinical speech environmental compliance engineer threshold. Cranial nerve IX is noted to be intact by an intact gag reflex and normal palatal movement. Cranial nerve X is noted to be intact by a normal voice. Cranial nerve XI is noted to be intact by normal shoulder and head movement. Cranial nerve XII is noted to be intact by normal symmetric tongue movement. Vestibular system: The patient has a normal gait. There is no spontaneous or gaze evoked nystagmus. Psychiatric: Mental status: The patient is awake and alert. Mood/affect: The patient has a normal mood and affect. Procedure: Flexible fiberoptic laryngoscopy Indication: OROPHARYNGEAL FOREIGN BODY Details: Following the topical application of afrin and lidocaine, the flexible laryngoscope was inserted into the nasal cavity. The septum, turbinates, and nasal mucosa were normal. The nasopharynx was normal. The palatine tonsils were normal bilaterally. The base of tongue and vallecula were normal. THERE WAS NO EVIDENCE OF THE FOREIGN BODY NOTED ON CT SCAN IN THE PATIENT'S OROPHARYNX AT THE TIME OF THE FLEXIBLE LARYNGOSCOPY. THERE IS NO EVIDENCE OF OROPHARYNGEAL OR PHARYNGEAL BLEEDING OR LACERATION. The epiglottis, bilateral arytenoids, and bilateral aryepiglottic folds, and bilateral false vocal folds were normal. The true vocal folds were normal without masses or lesions. There was normal mobility of the true vocal folds bilaterally. The bilateral pyriform sinuses and postcricoid space was normal. There was no pooling of secretions. No aspiration or penetration was visualized. The patient tolerated the procedure well. Results & Data ([facility]) Vital Signs (Past 12 Hours) Vital Signs Temp Pulse Pulse Resp BP BP Pulse Ox 10/13/19 19:20 99 H 20 158/96 H 95 10/13/19 18:00 98 H 18 208/96 H 95 10/13/19 16:14 98 H 20 183/70 H 98 10/13/19 14:14 36.6 C 96 H 18 155/75 H 98 PG Care Time/CCT Total # of Minutes Spent Total Time Spent with Patient: Total time spent is greater than 50% in coordination of care (as documented) at patient's floor/unit and/or counseling patient: Coding Level of Care Code 51219 Office/Outpt Visit, New (25 - SIGNIFICANT, SEPARATELY IDENTIFIABLE ) Diagnoses Swallowed chicken bone T18.9XXA Encounter type: initial encounter CPT Codes Diagnostic Laryngoscopy - [id number] ([id number]) (1) Swallowed chicken bone Encounter type: initial encounter Qualified Code(s): T18.9XXA - Foreign body of alimentary tract, part unspecified, initial encounter
--- NOTE | 2019-10-13 20:23 | Procedure Note ---
Procedure Note Date of Service October 13, 2019 GI brief procedure note EGD findings: large amounts of food in the stomach particularly the fundus, no evidence of obstruction nor lesion in the esophagus. pylorus was patulous. no obstruction in the duodenum. gastritis noted in the antrum, biopsied. recs: admit to observation for monitoring overnight clear liquids tonight, can advance diet as tolerated in the morning if stable f/u path results Manfred Crockett MD Gastroenterology Coding
--- NOTE | 2019-10-13 20:26 | GI REPORT ---
Patient Name: Basilia Benson Procedure Date: 10/13/2019 7:23 PM Date of : 1945 Admit Type: Emergency Department Age: 74 Gender: Female Attending MD: Manfred Crockett MD Procedure: Upper GI endoscopy Providers: Manfred Crockett MD Referring MD: Víctor Cool Indications: Dysphagia, Foreign body in the esophagus Medicines: Monitored Anesthesia Care Complications: No immediate complications. Estimated blood loss: None. Estimated Blood Loss: Estimated blood loss: none. Procedure: Pre-Anesthesia Assessment: - Prior Anticoagulants: The patient has taken no previous anticoagulant or antiplatelet agents. - ASA Grade Assessment: III - A patient with severe systemic disease. After obtaining informed consent, the endoscope was passed under direct vision. Throughout the procedure, the patient's blood pressure, pulse, and oxygen saturations were monitored continuously. The Endoscope was introduced through the mouth, and advanced to the second part of duodenum. The upper GI endoscopy was accomplished without difficulty. The patient tolerated the procedure well. Findings: The examined esophagus was normal. Localized moderate inflammation characterized by erythema was found in the gastric antrum. Biopsies were taken with a cold forceps for Helicobacter pylori testing. Estimated blood loss: none. A large amount of food (residue) was found in the gastric fundus and in the gastric antrum. The pylorus was patulous. The duodenal bulb and second portion of the duodenum were normal. Impression: - Normal esophagus. - Gastritis. Biopsied. - A large amount of food (residue) in the stomach. - Normal duodenal bulb and second portion of the duodenum. Recommendation: - Return patient to hospital [facility] for ongoing care. - Clear liquid diet today. advance diet in the morning as tolerated if stable. - Await pathology results. Manfred Crockett MD 10/13/2019 8:26:27 PM This report has been signed electronically. Note Initiated On: 10/13/2019 7:23 PM Number of Addenda: 0 I attest to the content of the Intraoperative Record and orders documented therein, exceptions below {[id number]}
[2019-10-13] MEDS ORDERED: METOPROLOL TARTRATE 1 MG/ML VIAL IV ONE (20:31)
[2019-10-13] MEDS ORDERED: METOPROLOL TARTRATE 1 MG/ML VIAL IV STA (20:32)
[2019-10-13] MEDS ORDERED: ACETAMINOPHEN 325 MG TAB PO PRN (21:07)
[2019-10-13] MEDS ORDERED: LORazepam 0.5 MG TAB PO PRN (21:07)
--- NOTE | 2019-10-13 21:09 | Anesthesiology Progress Note ---
Date of Service October 13, 2019 Anesthesia Post Procedure Vital Signs Vital Signs: Temp Pulse Pulse Pulse Resp BP BP 10/13/19 20:47 36.4 C L 70 18 128/67 10/13/19 20:35 75 18 112/72 10/13/19 20:28 36.2 C L 103 H 102 H 18 124/75 124/75 10/13/19 19:20 99 H 20 158/96 H 10/13/19 18:00 98 H 18 208/96 H 10/13/19 16:14 98 H 20 183/70 H 10/13/19 14:14 36.6 C 96 H 18 155/75 H Pulse Ox 10/13/19 20:47 95 10/13/19 20:35 96 10/13/19 20:28 98 10/13/19 19:20 95 10/13/19 18:00 95 10/13/19 16:14 98 10/13/19 14:14 98 Transfer of Care Handoff Completed per policy Notes Mental Status: alert / awake / arousable Patient Amnestic to Procedure: Yes Nausea / Vomiting: adequately controlled Pain: adequately controlled Airway Patency, RR, SpO2: stable & adequate BP & HR: stable & adequate Hydration State: stable & adequate Anesthetic Complications: no major complications apparent and Pt Satisfied with anesthetic care
[2019-10-13] MEDS ORDERED: HydrALAZINE HCL 20 MG/ML VIAL IV PRN (21:51)
[2019-10-14 08:05] LABS: Hematocrit (blood only) 42.2 % (37-47); Hemoglobin 14.7 g/dL (12.0-16.0); Lymphocytes # (auto) 0.77 K/uL (1.2-3.4); Lymphocytes % (auto) 13.8 %; Mean Corpuscular Hemoglobin 33.6 pg (25-34); Mean Corpuscular Hgb Conc 34.8 g/dL (32-36); Mean Corpuscular Volume 96.6 fL (80-100); Mean Platelet Volume 10.5 fL (7.4-10.4); Monocytes % (auto) 3.6 %; Neutrophils # (auto) 4.59 K/uL (1.4-6.5); Neutrophils % (auto) 82.6 %; Platelet Count 188 K/uL (130-400); RDW Standard Deviation 45.3 fL (36.4-46.3); Red Blood Count 4.37 M/uL (4.2-5.4); White Blood Count 5.56 K/uL (4.8-10.8)
[2019-10-14 08:40] LABS: BUN Creatinine Ratio 24.4 (10-20); Calcium 9.5 mg/dl (8.5-10.1); Creatinine Clr Calc Pharmacy 45.2 ml/min; Est GFR (African American) 49.9; Est GFR (Non-African American) 43.1; Potassium 4.5 mmol/L (3.5-5.1)
[2019-10-14] MEDS ORDERED: ASPIRIN 81 MG ECTAB PO SCH (09:00)
[2019-10-14] MEDS: ROSUVASTATIN CALCIUM 5 MG TAB PO SCH ×2 (09:24→09:26)
--- NOTE | 2019-10-14 15:45 | Hospitalist Progress Note ---
Date of Service October 14, 2019 Assessment & Plan (1) Dysphagia: Evaluated by speech therapist No further recommendation (2) FB esophagus: This is a 74-year-old female with PMH of hypertension, CKD III and dyslipidemia who presents with dysphasia after swallowing chicken bone during lunch today. -Soft tissue neck CT revealed 5 cm linear radiodense foreign body is present in the pharyngeal soft tissues as above that is consistent with the reported history of a swallowed chicken bone -Evaluated by ENT with laryngoscope but no evidence of foreign body -GI was consulted, with plans for emergent EGD to further evaluate. COVID screen negative -Has been tolerating regular diet -Unremarkable evaluation from the speech therapist (3) Acute kidney injury superimposed on CKD: Creatinine elevated at 1.8 (baseline Cr ~1) -Hold lisinopril/hydrochlorothiazide, gentle fluids -Kidney function has improved a lot with creatinine 1.24 as of 10/14/2019 (4) HTN (hypertension): BP initially elevated at 208/96 but repeat BP 158/96 with larger cuff -Holding lisinopril/HCTZ in setting of VENICE -Blood pressure remains controlled (5) Anxiety: Continue Ativan as needed (6) High cholesterol: Continue statin DVT Ppx: SCDs Code status: DNR PCP: Ras Moreno Dispo: Observation med tele. Plan to return home once medically stable. We will discharge home this afternoon Admission and Anticipated Discharge Date Admission Date: October 13, 2019 Subjective The patient was seen and examined in medical floor She is a status post EGD and removal of food bolus from esophagus Has been eating and drinking normally since this morning She has been tolerating regular diet Review of Systems Review of Systems: All systems reviewed and are unremarkable except as noted below Gastrointestinal: no abdominal pain and no pain with swallowing Physical Exam Physical Exam: Lying in bed without any acute symptoms Constitutional: well developed and well nourished; no acute distress and not ill appearing Eyes: PERRL, conjunctivae normal, anicteric sclerae ENMT: external ear and nose normal, oropharynx normal Neck: trachea midline, no thyromegaly Respiratory: normal respiratory effort; no respiratory distress Auscultation: lungs clear to auscultation bilaterally Cardiovascular: Rate/Rhythm: regular rate and regular rhythm Heart Sounds: no murmur Gastrointestinal (Abdomen): Inspection/Auscultation: abdomen normal to inspection and normal bowel sounds; abdomen not distended Percussion/Palpation: abdomen soft; abdomen not rigid Musculoskeletal: No acute arthritis in any joints Neurologic: moves all extremities; no focal motor deficits Alert, awake and oriented x3 Results & Data Results & Data ([facility]) Vital Signs (Past 12 Hours) Vital Signs Temp Pulse Pulse Resp BP Pulse Ox 10/14/19 15:18 96 H 10/14/19 11:25 36.6 C 70 17 138/74 98 10/14/19 08:00 81 10/14/19 07:56 36.5 C 73 17 114/69 96 10/14/19 04:00 36.6 C 73 18 148/74 H 95 Laboratory Results Short CBC 10/13/19 10/14/19 Range/Units 15:34 07:45 WBC 5.52 5.56 (4.8-10.8) K/uL Hgb 14.6 14.7 (12.0-16.0) g/dL Hct 41.5 42.2 (37-47) % Plt Count 200 188 (130-400) K/uL BMP 10/13/19 10/14/19 15:34 07:45 Sodium 138 140 Potassium 4.0 4.5 Chloride 104 110 H Carbon Dioxide 30 22 BUN 31 H 30 H Creatinine 1.80 H 1.24 H D Glucose 94 121 H Calcium 9.2 9.5 Medications Administered Current Inpatient Medications Acetaminophen (Tylenol) 650 mg PO Q4H PRN PRN Reason: Pain or Fever Stop: 11/12/19 21:06 Last Admin: 10/13/19 22:40 Dose: 650 mg Documented by: Aspirin (Ecotrin Ectab) 81 mg PO DAILY MORRIS Stop: 11/13/19 08:59 Last Admin: 10/14/19 09:24 Dose: 81 mg Documented by: Hydralazine HCl (Hydralazine Hcl) 5 mg IV Q6H PRN PRN Reason: Hypertension Stop: 11/12/19 21:50 Lorazepam (Ativan) 0.5 mg PO TID PRN PRN Reason: Anxiety Stop: 11/12/19 21:06 Last Admin: 10/13/19 22:40 Dose: 0.5 mg Documented by: Rosuvastatin Calcium (Crestor) 5 mg PO HS MORRIS Stop: 11/13/19 20:59 (1) FB esophagus Encounter type: initial encounter Qualified Code(s): T18.108A - Unspecified foreign body in esophagus causing other injury, initial encounter
--- NOTE | 2019-10-14 15:53 | Electrocardiogram Report ---
Test Reason : Blood Pressure : / mmHG Vent. Rate : 098 BPM Atrial Rate : 098 BPM P-R Int : 208 ms QRS Dur : 068 ms QT Int : 354 ms P-R-T Axes : 057 017 030 degrees QTc Int : 451 ms Sinus rhythm with occasional Premature ventricular complexes Low voltage QRS Borderline ECG When compared with ECG of 10-OCT-2004 12:50, Premature ventricular complexes are now Present Vent. rate has increased BY 33 BPM Criteria for Septal infarct are no longer Present Confirmed by Claudio Arias ([id number]) on 10/14/2019 3:53:06 PM Referred By: REFERRED SELF Confirmed By:Claudio Arias
[2019-10-14] MEDS ORDERED: ROSUVASTATIN CALCIUM 5 MG TAB PO SCH (21:00)
--- NOTE | 2019-10-15 07:29 | Discharge Summary ---
Date of Service October 15, 2019 Admission HPI Per Admitting Provider This is a 74-year-old female with PMH of hypertension, CKD 3 and dyslipidemia who presents with dysphasia. Was eating chicken for lunch today lunch around 145 today and felt like a bone got caught in her throat. Denies any difficulty swallowing, nausea or vomiting. Came to the ED for further evaluation. Soft tissue neck CT revealed 5 cm linear radiodense foreign body is present in the pharyngeal soft tissues as above that is consistent with the reported history of a swallowed chicken bone. ED provider consulted ENT but laryngoscope did not reveal foreign body. GI was consulted, with plans for emergent EGD to further evaluate. COVID screen negative. Currently, patient feels well despite some mild discomfort in the feeling of something in her throat. Denies any fever, chills, lightheadedness, headache, chest pain, shortness of breath, abdominal pain, nausea, vomiting, dysuria, diarrhea or constipation. Admission Exam Per Admitting Provider Physical Exam: General Appearance: WD/WN, vitals as above, NAD, sitting in bedside chair, pleasant, conversing easily Head: normocephalic, atraumatic Eyes: normal inspection, PERRL, conjunctivae normal, anicteric sclerae ENT: external ear and nose normal, oropharynx normal, no visualization of foreign body Neck: trachea midline, no thyromegaly normal visual inspection Respiratory: normal respiratory effort, lungs clear to auscultation, no wheeze, rales, rhonchi. Normal insp/exp effort, no accessory muscle use Cardiovascular: regular rate, rhythm, no murmur, normal peripheral pulses. Vessels: no JVD Chest: normal inspection of chest Abdomen/GI: normal bowel sounds, soft, nontender, no hepatosplenomegaly Extremities/Musculoskeletal: no cyanosis or clubbing, extremities motor strength 5/5 Neurologic: PERRL, EOMI, accommodation nl, no face palsy, no dysarthria, CN's II-XI intact bilaterally and moves all extremities Psychiatric: A+Ox3, euthymic affect Skin: no rashes, normal color, warm/dry Principal Diagnosis Impacted food bolus in esophagus, status post EGD and removal Discharge Exam Constitutional well developed and well nourished; no acute distress and not ill appearing Eyes PERRL, conjunctivae normal, anicteric sclerae ENMT external ear and nose normal, oropharynx normal Neck trachea midline, no thyromegaly Respiratory normal respiratory effort; no respiratory distress Auscultation: lungs clear to auscultation bilaterally Cardiovascular Rate/Rhythm: regular rate and regular rhythm Heart Sounds: no murmur Gastrointestinal (Abdomen) Inspection/Auscultation: abdomen normal to inspection and normal bowel sounds; abdomen not distended Percussion/Palpation: abdomen soft; abdomen not rigid Neurologic moves all extremities; no focal motor deficits Discharge Data Allergies Allergy/AdvReac Type Severity Reaction Status Date / Time aspirin AdvReac Unknown Nausea Verified 09/15/19 17:27 Consultations 10/13/19 18:51 ED Decision to Admit Stat 10/13/19 21:07 Consult Gastroenterology Routine Procedures Performed Operation Date: 10/13/19 19:05 Actual Procedures p Esophagogastroduodenoscopy for Food Bolus(Not Applicable) - Manfred Crockett MD Ordered Studies 10/13/19 14:28 CT soft tissue neck wo con Stat Hospital Course (1) Dysphagia: Evaluated by speech therapist No further recommendation (2) FB esophagus: This is a 74-year-old female with PMH of hypertension, CKD III and dyslipidemia who presents with dysphasia after swallowing chicken bone during lunch today. -Soft tissue neck CT revealed 5 cm linear radiodense foreign body is present in the pharyngeal soft tissues as above that is consistent with the reported history of a swallowed chicken bone -Evaluated by ENT with laryngoscope but no evidence of foreign body -GI was consulted, with plans for emergent EGD to further evaluate. COVID screen negative -Has been tolerating regular diet -Unremarkable evaluation from the speech therapist (3) Acute kidney injury superimposed on CKD: Creatinine elevated at 1.8 (baseline Cr ~1) -Hold lisinopril/hydrochlorothiazide, gentle fluids -Kidney function has improved a lot with creatinine 1.24 as of 10/14/2019 (4) HTN (hypertension): BP initially elevated at 208/96 but repeat BP 158/96 with larger cuff -Holding lisinopril/HCTZ in setting of VENICE -Blood pressure remains controlled (5) Anxiety: Continue Ativan as needed (6) High cholesterol: Continue statin DVT Ppx: SCDs Code status: DNR PCP: Ras Moreno Dispo: Observation med tele. Plan to return home once medically stable. We will discharge home this afternoon Total Time Total Time Spent Total Time Spent (In Minutes): 35 minutes Total Time Includes: Examination of the Patient, Discharge Planning, Medication Reconciliation and Communication With Other Providers Discharge Plan Discharge Items Patient Disposition: Home - Self-Care Reason For Visit: FOOD BOLUS Discharge Diagnosis: Impacted food bolus in esophagus, status post EGD and removal Activity: Resume your previous activity Non-emergency contact: Primary Care Provider Call non-emergency contact if: you have any medication questions and your symptoms worsen Follow-up/Referrals: Mamta Moreno, [Primary Care Provider] - 10/19/19 1:40 pm Diet: Heart Healthy Addtl Attending Provider Instructions: Please take precaution during swallowing Pending Studies at Discharge: No Stand-Alone Forms: My [employer], Smoking Cessation Medications and DC Order Prescriptions: Continued lorazepam 0.5 mg tablet 0.5 mg PO TID PRN (Reason: Anxiety) RF: 0 lisinopril-hydrochlorothiazide 20-25 mg tablet 1 tab PO DAILY RF: 0 aspirin 81 mg Tablet,Delayed Release (Dr/Ec) 81 mg PO DAILY RF: 0 Caltrate 600 plus D 600 mg (1,500 mg)-800 unit Tablet,Chewable 1 tab PO WK RF: 0 rosuvastatin 5 mg tablet 5 mg PO DAILY RF: 0 Discharge Orders: Discharge Order (Routine); Ordered 10/14/19 Ordered By: Bossman Wang Print Language: Kyrgyz Admission Data Admit Date/Time: 10/13/19 19:21 Attending Provider: Bossman Wang Admit Provider: Rico Niño Primary Care Provider: Mamta Moreno Other Providers: Rico Niño ; Manfred Crockett Other Interventions: Discharge Summary Assessment (RN) Last Done: 10/14/19 17:45 DC Date/Time DO NOT enter until pt leaves facility: 10/14/19 17:46
== END 2019-10-14 17:46 | disposition home or self-care (01) ==
LOC: ED 14:10 → 2W 19:20 → OR 19:20 → SUATTDRO 19:21

== ENCOUNTER 2023-03-11 14:48 | Inpatient (IN) ==
--- NOTE | 2023-03-11 15:13 | Emergency Department Note ---
Impression & Plan Fracture of right tibia and fibula, Fall, Abrasion of right elbow ED Provider Note CHIEF COMPLAINT: Fall, right knee pain/deformity HISTORY OF PRESENTING ILLNESS: This 78-year-old female patient presents to the emergency department via EMS for evaluation of right knee pain and swelling. The patient fell off the first step of a stepladder just prior to arrival. She denies any symptoms prior to the fall, she just lost her footing. She is not sure if she hit her head, but does not think she did. She states that she twisted her right knee weird and then landed on her bottom falling backwards. Her knee now looks like there is a deformity and she has significant pain from the knee down to the foot. She rates her discomfort as 7/10. Has a small abrasion to the right elbow. Tetanus shot is up to date. She states that she was only on the ground for about 5 minutes until she could get someone to help her up. She is not able to walk or bear any weight on the right leg. Denies pain in her neck, but does have lower back pain. Denies headache, dizziness, change in vision, nausea, vomiting, or change in personality. Denies any chest pain, shortness of breath, or abdominal pain. She is not on any blood thinners. Denies any pain of the extremities other than the right leg. Ate lunch at 12:10 pm. Nothing to eat or drink since then. She last saw Dr. Isaac in 2004 and would like to see Dr. Isaac of orthopedics again. REVIEW OF SYSTEMS: See HPI for pertinent positives and pertinent negatives. ALLERGIES: Full strength aspirin causes GI upset, but able to take 81 mg aspirin every day MEDICATIONS: See below PAST MEDICAL HISTORY: See below PHYSICAL EXAM: VITALS: Vitals are noted on the nurse's note and reviewed by myself. GENERAL: No acute distress, non-diaphoretic. SKIN: The patient has a superficial abrasion to the posterior aspect of the right elbow. There is no active bleeding and no foreign bodies present. No other obvious lacerations or abrasions. Capillary reflex less than 2 seconds. HEAD: Normocephalic. No scalp tenderness or step-offs felt. EARS: Bilateral external auditory canals clear without tragus tenderness. Bilateral tympanic membranes pearly [place] without erythema or effusion. No mastoid tenderness bilaterally. No hemotympanum. No mcgee sign. EYES: Pupils equal round and reactive to light and accommodation. Conjunctivae without injection, sclerae without icterus. Extraocular movements intact. NOSE: Patent without discharge. No sinus tenderness. No septal hematoma or bleeding. FACE: No facial bone tenderness. Full range of motion of the jaw without tenderness. MOUTH: Mucous membranes moist. Pharynx without erythema or exudate. Uvula midline. Airway patent. Tongue does not deviate. NECK: Supple without nuchal rigidity. Cervical spine is nontender. Full range of motion of the neck without tenderness. HEART: Regular rate and rhythm without murmurs gallops or rubs. LUNGS: Clear to auscultation bilaterally without wheezes, rales or rhonchi. No retractions or accessory muscle use. CHEST: No chest wall tenderness. ABDOMEN: Positive bowel sounds x 4. Normal tympanic percussion. Soft, nontender, without masses or organomegaly. No guarding or rebound tenderness. No CVA tenderness. MUSCULOSKELETAL: No tenderness of the thoracic spine or paraspinal muscles. The patient is tender to palpation over the lower lumbar spine and right-sided paraspinal muscles. No tenderness with pelvic rocking. The patient is diffusely tender to palpation over the right knee and right tib-fib. The patient is unable to move the right knee either actively or passively due to pain. The patient's body habitus also limits the exam of the knee at this time. No tenderness to palpation of the right femur or hip. No tenderness to palpation of the right ankle or foot. No tenderness to palpation of the left lower extremity. Full range of motion of the left lower extremity without pain. Mild ecchymosis to the posterior aspect of the right elbow. Full range of motion of the elbow without significant pain. No tenderness to palpation of the remainder of the bilateral upper extremities. Full range of motion of the bilateral upper extremities. Peripheral pulses 2+. NEURO: Patient was alert and oriented to person place and time. Normal mental status exam. Normal sensation to light and sharp touch. No focal neurological deficits. DIFFERENTIAL DIAGNOSIS: Differential diagnosis includes fracture, dislocation, subluxation, contusion, intra-abdominal injury, pneumothorax, intrathoracic injury, intracranial injury, neurologic, as well as other pathologies. ED COURSE AND MEDICAL DECISION MAKING: MONITOR: Continuous environmental monitoring technician: Order was placed for continuous environmental monitoring technician. Patient was placed on the environmental monitoring technician and continuous pulse ox. Patient was noted to be in normal sinus rhythm at an initial rate of 88 bpm per my interpretation. EKG: EKG was interpreted by myself as sinus tachycardia at 105 bpm with age- indeterminate septal infarct, but no acute ST or T wave changes. MEDICATIONS GIVEN: Tylenol 1000 mg p.o. 500 mL normal saline solution bolus, fentanyl 25 mcg IV, Zofran 4 mg IV. INTERPRETATION OF LABS: I interpreted the labs with full lab results as below in the lab section of this note. White blood cell count elevated at 11.79. Hemoglobin normal at 12.9. Platelet count normal. Coags still pending. Creatinine elevated 1.43 and BUN elevated at 26 with a glucose of 108. CMP otherwise normal. INTERPRETATION OF IMAGING: Imaging studies were interpreted by myself and read by radiology as per the imaging section of this note. X-rays of the right knee, right tib-fib, and right ankle showed comminuted displaced fractures of the proximal fibular metaphysis and tibial metadiaphysis with no definite articular involvement. X-rays of the right elbow were negative. CT scan of the head without acute intracranial abnormality. CT scans of the cervical and lumbar spine without contrast showed degenerative changes without evidence of acute bony abnormality. Chest x-ray without acute cardiopulmonary etiology. CONSULTATIONS: Dr. Mukherjee of orthopedics. On-call hospitalist. SPLINTING: The patient was placed in a knee immobilizer under my direction. Neurovascular status was rechecked and intact. MDM SUMMARY: I examined the patient. The patient had a mechanical fall off of a stepladder causing a lot of pain in the right lower leg. X-rays of the right knee, tib- fib, and right ankle showed comminuted displaced fractures of the proximal fibular metaphysis and tibial metadiaphysis. X-rays of the right elbow were negative. The patient has an abrasion to the right elbow that was cleaned with sterile saline and dressed with bacitracin and a bandage by myself. Tetanus shot is up-to-date. CT scans of the head, cervical spine, and lumbar spine were negative for acute abnormalities. I spoke with Dr. Mukherjee of orthopedics who stated the patient would require surgical repair of the fracture. The patient prefers to see Dr. Isaac of orthopedics whom she has seen in the past. The patient will need admission by medicine with Dr. Isaac's office consulted for definitive treatment. We were able to find a knee immobilizer large enough to fit the patient and she was placed in the knee immobilizer. An IV lock was placed and labs were drawn. The patient was medicated as above with improvement of her pain. Preop chest x-ray and EKG as well as preop blood work were obtained and are as above. I had a meaningful discussion about this patient with Dr. Landaverde who agrees with my assessment and the treatment plan. I spoke with the on-call hospitalist who agreed to admit the patient for further management. Please refer to their dictation for further details. The patient's care was transferred in stable condition. DIAGNOSIS: Comminuted displaced fractures of the right tibia and fibula Fall Abrasion of the right elbow Past Med/Surg History Medical History (Updated 03/11/23 @ 21:13 by Darlin Fowler PA-C) Obesity High cholesterol HTN (hypertension) Surgical History History of hip surgery Hx of tubal ligation Family History Other No pertinent family history Denies family history of Ovarian cancer Breast cancer Colorectal cancer Social History Smoking Status: Never smoker Do You Dip or Chew Tobacco: No; Hx Alcohol Use: No Hx Substance Use: No Preferred Language: Sami Communication Ability: Effective Visual Impairment: No Limitations Hearing Ability: Normal Jewelry Designer Required: No Beliefs That Will Affect Care: None Current Living Situation: Alone current occupational status: retired Feels Safe at Home: Yes Assistive Devices: Glasses Allergies Allergies Allergy/AdvReac Type Severity Reaction Status Date / Time aspirin AdvReac Unknown Nausea Verified 01/20/20 13:11 Home Meds Home Medications Medication Instructions Recorded Confirmed aspirin 81 mg tablet,delayed 81 mg PO QAM 01/31/18 03/11/23 release lisinopril 20 1 tab PO DAILY 01/31/18 03/11/23 mg-hydrochlorothiazide 25 mg tablet lorazepam 0.5 mg tablet 0.5 mg PO TID PRN Anxiety 01/31/18 03/11/23 rosuvastatin 5 mg tablet 5 mg PO DAILY 09/15/19 03/11/23 clotrimazole-betamethasone 1 1 applic topical .APPLY SPARINGLY 01/18/20 03/11/23 %-0.05 % topical cream TO AFFECTED AREA(S) 3 TIMES A DAY for 7-10 days as needed PRN Other magnesium 1 tab PO DAILY 03/11/23 03/11/23 Results & Data (ED) Vital Signs Vital Signs - 24 hr 03/11/23 15:01 03/11/23 18:37 Temperature 37 C Temperature Source Oral Pulse Rate 98 H Pulse Rate [Apical] 74 Respiratory Rate 16 20 Respiratory Effort / Characteristics Non-Labored Spontaneous Respiratory Depth Normal Blood Pressure 145/78 H Blood Pressure [Left Arm] 142/74 H Blood Pressure Mean 100 Blood Pressure Mean [Left Arm] 96 Pulse Oximetry 100 97 Sepsis Recent Fever Within 48 Hours No Sepsis New/Unexplained Change in Mental Status N/A Sepsis Action Taken by Nursing No Action Required Laboratory Data 03/11/23 17:25 03/11/23 20:08 Lab Results 03/11/23 03/11/23 Range/Units 17:25 20:08 WBC 11.79 H (4.8-10.8) K/ul RBC 3.86 L (4.20-5.40) M/uL Hgb 12.9 (12.0-16.0) g/dl Hct 37.9 (37.0-47.0) % MCV 98.2 (80.0-100.0) fL MCH 33.4 (25.0-34.0) pg MCHC 34.0 (32.0-36.0) g/dL RDW Std Deviation 45.9 (36.4-46.3) fL RDW Coeff of Gee 12.9 (11.5-14.5) % Plt Count 179 (130-400) K/uL MPV 10.7 (9.4-12.4) fL Immature Gran % (Auto) 0.3 % Neut % (Auto) 86.2 % Lymph % (Auto) 6.4 % [place] % (Auto) 6.5 % Eos % (Auto) 0.3 % Baso % (Auto) 0.3 % Neut # (Auto) 10.16 H (1.40-6.50) K/uL Lymph # (Auto) 0.75 L (1.20-3.40) K/uL [place] # (Auto) 0.77 H (0.11-0.59) K/uL Eos # (Auto) 0.04 (0.00-0.50) K/uL Baso # (Auto) 0.03 (0.00-0.20) K/uL Immature Gran # (Auto) 0.04 (0.01-0.20) K/uL PT Cancelled INR Cancelled APTT Cancelled PTT Ratio Cancelled Sodium 137 (136-145) mmol/L Potassium TNP 4.7 Chloride 104 (98-107) mmol/L Carbon Dioxide 24 (21-32) mmol/L Anion Gap 9 (3-11) BUN 26 H (6-23) mg/dl Creatinine 1.43 H (0.6-1.2) mg/dl Est Cr Clr Drug Dosing 38.2 ml/min Est GFR ( Amer) 40.8 ml/min Est GFR (Non-Af Amer) 35.2 ml/min BUN/Creatinine Ratio 18.2 (10-20) Glucose 108 H (70-99(Fasting)) mg/dl Calcium 9.0 (8.6-10.3) mg/dl Total Bilirubin 0.6 (0.2-1.0) mg/dl AST TNP 19 ALT 12 (7-52) U/L Alkaline Phosphatase 51 (34-104) U/L Total Protein 6.6 (6.0-8.3) gm/dl Albumin 3.9 (3.4-5.0) gm/dl Globulin 2.7 (2.5-4.0) gm/dl Albumin/Globulin Ratio 1.4 (0.9-2) Administered Medications Discontinued Medications Acetaminophen (Acetaminophen 500 Mg Tab) 1,000 mg PO NOW STA Stop: 03/11/23 15:31 Last Admin: 03/11/23 15:34 Dose: 1,000 mg Documented By: HS Fentanyl Citrate (Fentanyl Citrate Pf 100 Mcg/2 Ml Vial) 25 mcg IV NOW STA Stop: 03/11/23 17:06 Last Admin: 03/11/23 17:22 Dose: 25 mcg Documented By: HS Sodium Chloride (Nss) 500 mls @ 999 mls/hr IV .Q31M ONE Stop: 03/11/23 17:33 Last Infusion: 03/11/23 19:46 Dose: Infused Documented By: Admin: 03/11/23 17:22 Dose: 999 mls/hr Documented By: HS Ondansetron HCl (Ondansetron Inj 2 Mg/Ml 2 Ml Vial) 4 mg IV NOW STA Stop: 03/11/23 17:06 Last Admin: 03/11/23 17:22 Dose: 4 mg Documented By: HS Imaging Data Radiologist's Impression: Cervical Spine CT 03/11/23 15:30 CT cervical spine wo con CLINICAL HISTORY: Trauma TECHNIQUE: Multidetector row helical CT of the cervical spine was performed without administration of intravenous contrast. Coronal and sagittal reformations were obtained. Automated dose lowering techniques and/or adjustment according to patient size were utilized for this exam. Comparison: Comparison is made to CT soft tissue neck 10/13/2019 FINDINGS: No acute fractures or subluxations are identified. Degenerative changes are seen in the visualized spine. The alignment is normal. Biapical scarring is seen in the lungs. IMPRESSION: Degenerative changes without evidence of acute bony injury. ACT 112: Negative or not required by law. Electronically signed by: John Wallis M.D. 03/11/2023 4:58 PM Elbow X-Ray 03/11/23 15:30 XR elbow RT min 3V routine CLINICAL HISTORY: Trauma. Fall. Right elbow pain. COMPARISON STUDY: None. FINDINGS: No fracture or dislocation within the right elbow. Soft tissues are unremarkable. No elbow effusion. No radiopaque foreign bodies. IMPRESSION: No fracture or dislocation within the right elbow. ACT 112: Negative or not required by law. Electronically signed by: Baltazar Mendez M.D. 03/11/2023 4:[address] 03/11/23 15:30 CT head/brain wo con CLINICAL HISTORY: Trauma Technique: Contiguous axial CT images of the head were acquired from the base of the skull to the vertex without intravenous contrast administration. Images were viewed in brain, subdural and bone windows. Automated dose lowering techniques and/or adjustment according to patient size were utilized for this exam. Comparison: None available at the time of this dictation. Findings: The ventricles, basal cisterns, and cerebral sulci are normal. There is no acute intracranial hemorrhage or evidence of acute territorial infarction. Neither mass effect, shift of the midline structures, nor abnormal extra-axial fluid collections are shown. ENCEPHALOMALACIA IN THE LEFT BASAL GANGLIA LIKELY CORRESPONDS TO A PRIOR LACUNAR INFARCT. Imaged portions of the paranasal sinuses and mastoid air cells are clear. The orbits appear normal. There are no acute fractures of the calvaria or scalp swelling. Impression: No acute intracranial hemorrhage, no evidence of acute territorial infarction or other acute intracranial disease process. ACT 112: Negative or not required by law. Electronically signed by: John Wallis M.D. 03/11/2023 4:52 PM Knee X-Ray 03/11/23 15:30 XR knee RT 3V, XR tibia fibula RT 2V, XR ankle RT min 3V routine CLINICAL HISTORY: Trauma TECHNIQUE: 2 views of the right knee were obtained. 2 views of the right tibia and fibula were obtained. 3 views of the ankle were obtained. Comparison: None available at the time of this dictation. FINDINGS: Comminuted, mildly displaced fractures of the proximal fibular metaphysis and tibial metadiaphysis. Degenerative changes are seen in the knee joint. No joint effusion is seen. Soft tissue swelling is seen throughout the lower extremity and in the ankle. IMPRESSION: Comminuted, displaced fractures of the proximal fibular metaphysis and tibial metadiaphysis. No definite articular involvement. ACT 112: Negative or not required by law. Electronically signed by: John Wallis M.D. 03/11/2023 4:[address] 03/11/23 15:30 CT lumbar spine wo con CLINICAL HISTORY: Trauma TECHNIQUE: Multidetector row helical CT of the lumbar spine was performed without administration of intravenous contrast. Coronal and sagittal reformations were obtained. Automated dose lowering techniques and/or adjustment according to patient size were utilized for this exam. Comparison: Comparison is made to lumbar spine radiographs 09/15/2019 FINDINGS: For counting purposes, the last complete intervertebral disc space is considered L5-S1. There is a anterior compression deformity of L1 which appears chronic. Rudimentary ribs are seen bilaterally at L1. Degenerative changes are noted in the visualized spine. Vertebral body alignment is within normal limits. Surrounding soft tissues are unremarkable. IMPRESSION: Degenerative changes without evidence of acute bony injury. ACT 112: Negative or not required by law. Electronically signed by: John Wallis M.D. 03/11/2023 5:07 PM Tibia/Fibula X-Ray 03/11/23 15:30 XR knee RT 3V, XR tibia fibula RT 2V, XR ankle RT min 3V routine CLINICAL HISTORY: Trauma TECHNIQUE: 2 views of the right knee were obtained. 2 views of the right tibia and fibula were obtained. 3 views of the ankle were obtained. Comparison: None available at the time of this dictation. FINDINGS: Comminuted, mildly displaced fractures of the proximal fibular metaphysis and tibial metadiaphysis. Degenerative changes are seen in the knee joint. No joint effusion is seen. Soft tissue swelling is seen throughout the lower extremity and in the ankle. IMPRESSION: Comminuted, displaced fractures of the proximal fibular metaphysis and tibial metadiaphysis. No definite articular involvement. ACT 112: Negative or not required by law. Electronically signed by: John Wallis M.D. 03/11/2023 4:49 PM Ankle X-Ray 03/11/23 16:08 XR knee RT 3V, XR tibia fibula RT 2V, XR ankle RT min 3V routine CLINICAL HISTORY: Trauma TECHNIQUE: 2 views of the right knee were obtained. 2 views of the right tibia and fibula were obtained. 3 views of the ankle were obtained. Comparison: None available at the time of this dictation. FINDINGS: Comminuted, mildly displaced fractures of the proximal fibular metaphysis and tibial metadiaphysis. Degenerative changes are seen in the knee joint. No joint effusion is seen. Soft tissue swelling is seen throughout the lower extremity and in the ankle. IMPRESSION: Comminuted, displaced fractures of the proximal fibular metaphysis and tibial metadiaphysis. No definite articular involvement. ACT 112: Negative or not required by law. Electronically signed by: John Wallis M.D. 03/11/2023 4:49 PM Chest X-Ray 03/11/23 17:03 XR chest 1V portable CLINICAL HISTORY: Pre-op TECHNIQUE: Single frontal radiograph of the chest was obtained. Comparison: Comparison is made to chest radiograph 10/13/2019 FINDINGS: No lines and tubes are seen. The cardiomediastinal silhouette is normal. The lungs are clear. No evidence of pleural effusion or pneumothorax. IMPRESSION: No acute chest disease. ACT 112: Negative or not required by law. Electronically signed by: John Wallis M.D. 03/11/2023 5:43 PM Discharge Plan Visit Data Chief Complaint: Fall Stated Complaint: FALL, L KNEE PAIN/DEFORMITY ED Provider: Michel Landaverde ED Midlevel Provider: Darlin Fowler Discharge Problem: Fracture of right tibia and fibula, Fall, Abrasion of right elbow Patient Disposition: Admitted As Inpatient Condition: Good Discharge Instructions Interventions: ED Discharge Assessment Last Done: 03/11/23 20:25 Forms Stand Alone Forms: docplanner Prescriptions Prescriptions: No Action clotrimazole-betamethasone 1-0.05 % cream 1 applic topical .APPLY SPARINGLY TO AFFECTED AREA(S) 3 TIMES A DAY for 7-10 days as needed PRN (Reason: Other) lorazepam 0.5 mg tablet 0.5 mg PO TID PRN (Reason: Anxiety) lisinopril-hydrochlorothiazide 20-25 mg tablet 1 tab PO DAILY aspirin 81 mg Tablet,Delayed Release (Dr/Ec) 81 mg PO QAM rosuvastatin 5 mg tablet 5 mg PO DAILY magnesium Tablet 1 tab PO DAILY Referrals Referrals: Mamta Moreno DO [Primary Care Provider] - Discharge Problem: Fracture of right tibia and fibula Qualifiers: Encounter type: initial encounter Fracture type: closed Qualified Code(s): S 82.201A - Unspecified fracture of shaft of right tibia, initial encounter for closed fracture; S82.401A - Unspecified fracture of shaft of right fibula, initial encounter for closed fracture Fall Qualifiers: Encounter type: initial encounter Qualified Code(s): W19.XXXA - Unspecified fall, initial encounter Abrasion of right elbow Qualifiers: Encounter type: initial encounter Qualified Code(s): S50.311A - Abrasion of right elbow, initial encounter
[2023-03-11] MEDS ORDERED: ACETAMINOPHEN 500 MG TAB PO STA (15:30)
--- NOTE | 2023-03-11 16:47 | XRay Report ---
XR elbow RT min 3V routine CLINICAL HISTORY: Trauma. Fall. Right elbow pain. COMPARISON STUDY: None. FINDINGS: No fracture or dislocation within the right elbow. Soft tissues are unremarkable. No elbow effusion. No radiopaque foreign bodies. IMPRESSION: No fracture or dislocation within the right elbow. ACT 112: Negative or not required by law. Electronically signed by: Baltazar Mendez M.D. 03/11/2023 4:46 PM
--- NOTE | 2023-03-11 16:50 | XRay Report ---
XR knee RT 3V, XR tibia fibula RT 2V, XR ankle RT min 3V routine CLINICAL HISTORY: Trauma TECHNIQUE: 2 views of the right knee were obtained. 2 views of the right tibia and fibula were obtain ed. 3 views of the ankle were obtained. Comparison: None available at the time of this dictation. FINDINGS: Comminuted, mildly displaced fractures of the proximal fibular metaphysis and tibial metadiaphysis. D egenerative changes are seen in the knee joint. No joint effusion is seen. Soft tissue swelling is se en throughout the lower extremity and in the ankle. IMPRESSION: Comminuted, displaced fractures of the proximal fibular metaphysis and tibial metadiaphysis. No defin ite articular involvement. ACT 112: Negative or not required by law. Electronically signed by: John Wallis M.D. 03/11/2023 4:49 PM
--- NOTE | 2023-03-11 16:53 | CT Scan Report ---
CT head/brain wo con CLINICAL HISTORY: Trauma Technique: Contiguous axial CT images of the head were acquired from the base of the skull to the pili [place] without intravenous contrast administration. Images were viewed in brain, subdural and bone [facility]. Automated dose lowering techniques and/or adjustment according to patient size were utilized for this exam. Comparison: None available at the time of this dictation. Findings: The ventricles, basal cisterns, and cerebral sulci are normal. There is no acute intracranial hemorrh age or evidence of acute territorial infarction. Neither mass effect, shift of the midline structures , nor abnormal extra-axial fluid collections are shown. ENCEPHALOMALACIA IN THE LEFT BASAL GANGLIA L IKELY CORRESPONDS TO A PRIOR LACUNAR INFARCT. Imaged portions of the paranasal sinuses and mastoid air cells are clear. The orbits appear normal. There are no acute fractures of the calvaria or scalp swelling. Impression: No acute intracranial hemorrhage, no evidence of acute territorial infarction or other acute intracra nial disease process. ACT 112: Negative or not required by law. Electronically signed by: John Wallis M.D. 03/11/2023 4:52 PM
--- NOTE | 2023-03-11 17:00 | CT Scan Report ---
CT cervical spine wo con CLINICAL HISTORY: Trauma TECHNIQUE: Multidetector row helical CT of the cervical spine was performed without administration of intravenous contrast. Coronal and sagittal reformations were obtained. Automated dose lowering techn iques and/or adjustment according to patient size were utilized for this exam. Comparison: Comparison is made to CT soft tissue neck 10/13/2019 FINDINGS: No acute fractures or subluxations are identified. Degenerative changes are seen in the visualized sp ine. The alignment is normal. Biapical scarring is seen in the lungs. IMPRESSION: Degenerative changes without evidence of acute bony injury. ACT 112: Negative or not required by law. Electronically signed by: John Wallis M.D. 03/11/2023 4:58 PM
[2023-03-11] MEDS ORDERED: SODIUM CHLORIDE 0.9% 500 ML IV ONE (17:03)
[2023-03-11] MEDS ORDERED: fentaNYL citrate PF 100 MCG/2 ML VIAL IV STA (17:05)
[2023-03-11] MEDS ORDERED: ONDANSETRON INJ 2 MG/ML 2 ML VIAL IV STA (17:05)
--- NOTE | 2023-03-11 17:08 | CT Scan Report ---
CT lumbar spine wo con CLINICAL HISTORY: Trauma TECHNIQUE: Multidetector row helical CT of the lumbar spine was performed without administration of i ntravenous contrast. Coronal and sagittal reformations were obtained. Automated dose lowering techniq ues and/or adjustment according to patient size were utilized for this exam. Comparison: Comparison is made to lumbar spine radiographs 09/15/2019 FINDINGS: For counting purposes, the last complete intervertebral disc space is considered L5-S1. There is a anterior compression deformity of L1 which appears chronic. Rudimentary ribs are seen bila terally at L1. Degenerative changes are noted in the visualized spine. Vertebral body alignment is wi thin normal limits. Surrounding soft tissues are unremarkable. IMPRESSION: Degenerative changes without evidence of acute bony injury. ACT 112: Negative or not required by law. Electronically signed by: John Wallis M.D. 03/11/2023 5:07 PM
--- NOTE | 2023-03-11 17:23 | Emergency Department Note ---
ED Visit Note Patient was seen by the SUKHJINDER. I agree with the treatment and disposition plan by the SUKHJINDER for this patient. I have reviewed the patient's x-rays with the tib-fib fracture and the requirement for admission. .
--- NOTE | 2023-03-11 17:41 | History & Physical Report ---
Date of Service March 11, 2023 Assessment & Plan (1) Fracture of right tibia and fibula: (2) Fall: (3) HTN (hypertension): (4) High cholesterol: (5) Obesity: Plan This is a 78-year-old female with significant past medical history of HTN, HLD, CKD stage III, morbid obesity and anxiety who presents to ED secondary to right ankle pain. She was getting on a stepladder today trying to clean her kitchen cupboards whenever she fell off and landed on her right leg. XR: Comminuted, displaced fractures of the proximal fibular metaphysis and tibial metadiaphysis Fall from step ladder Right Tibial and fibula fracture, closed, comminuted, displaced admit to medical consult orthopedics Dr. Isaac Splint placed in ED ED provider spoke to Dr. Mukherjee personal lines account executive who states fracture will require surgical fixation and pt prefers to stick with Dr. Isaac nonweightbearing NPO after midnight CXR clear, ECG w/o ischemic change, pt able to perform 4 METS of activity w/o difficulty she is medically clear from a medical perspective pending BMP npo after midnight, neurovascular checks ICD TID schedueld tylenol, prn oxy IR or IV morphine for more severe pain order for ray placed obtain R hip xr as pt c/o pain HTN continue lisinopril but hold HCTZ monitor and resume as able HLD chronic stable continue statin CKD 3a baseline cr 1.3-1.4 bun/cr 26 and 1.43 today chronic, stable will give gentle fluid while NPO overnight Morbid obesity, BMI 36 encourage diet lifestyle mod when able FULL CODE DVT ppx: will give SQ heparin x 1 this evening, will need to place on chemical ppx post operatively determined by orthopedics PCP:Dr. Moreno Dispo: admit to medical Pt was seen and examined in collaboration with Dr. Zuniga, please see addendum A total of 60 was spent coordinating, documenting, and providing care for this patient excluding time spent in the performance of separately billed services. This included personally viewing all current laboratories and imaging studies, medication reconciliation, outpatient chart review, and discussion with specialists. History of Present Illness Chief Complaint: Fall prior to arrival Primary Care Provider: Mamta Moreno, DO This is a 78-year-old female with significant past medical history of HTN, HLD, CKD stage III, morbid obesity and anxiety who presents to ED secondary to right ankle pain. She was getting on a stepladder today trying to clean her kitchen cupboards whenever she fell off and landed on her right leg. She denies hitting her head or loss of consciousness. She was unable to get up and summoned EMS. She immediately complained of pain below the right knee. In ED pain below the right knee she underwent a tibia and fibula x-ray which revealed a comminuted, displaced fracture of the proximal fibular metaphases and tibial metadiaphysis. She underwent further imaging including lumbar spine CT, head CT, elbow x-ray and cervical spine CT revealing degenerative changes but no acute abnormality. Up until today's fall she had been doing well without any recent illness. She denies any recent fever, chills, sweats, lightheadedness, dizziness, chest pain, shortness breath, cough, URI symptoms, nausea, vomiting, abdominal pain, change in her bowel or urinary habits. From an orthopedic standpoint she does have a prior hip replacement from Dr. 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 She also has follow-up with Dr. Isaac and wishes for Dr. Isaac to do a surgical procedure if required. She also admits that she is able to ambulate 1 flight of steps or 1 city block without experiencing any chest pain or shortness of breath. Allergies Allergy/AdvReac Type Severity Reaction Status Date / Time aspirin AdvReac Unknown Nausea Verified 01/20/20 13:11 Home Medications Medication Instructions Recorded Confirmed Type aspirin 81 mg tablet,delayed 81 mg PO QAM 01/31/18 03/11/23 History release lisinopril 20 1 tab PO DAILY 01/31/18 03/11/23 History mg-hydrochlorothiazide 25 mg tablet lorazepam 0.5 mg tablet 0.5 mg PO TID PRN Anxiety 01/31/18 03/11/23 History rosuvastatin 5 mg tablet 5 mg PO DAILY 09/15/19 03/11/23 History clotrimazole-betamethasone 1 1 applic topical .APPLY SPARINGLY 01/18/20 03/11/23 History %-0.05 % topical cream TO AFFECTED AREA(S) 3 TIMES A DAY for 7-10 days as needed PRN Other magnesium 1 tab PO DAILY 03/11/23 03/11/23 History Past Med/Surg History Medical History (Updated 03/11/23 @ 18:24 by Farnaz Dickson PA-C) Obesity High cholesterol HTN (hypertension) Surgical History History of hip surgery Hx of tubal ligation Family History Other No pertinent family history Denies family history of Ovarian cancer Breast cancer Colorectal cancer Social History Smoking Status: Never smoker Do You Dip or Chew Tobacco: No; Hx Alcohol Use: No Hx Substance Use: No Preferred Language: Japanese Communication Ability: Effective Visual Impairment: No Limitations Hearing Ability: Normal Wound Nurse Required: No Beliefs That Will Affect Care: None Current Living Situation: Alone current occupational status: retired Feels Safe at Home: Yes Assistive Devices: Glasses Review of Systems Review of Systems: All systems reviewed & are unremarkable except as noted in HPI & below Physical Exam Physical Exam: Constitutional: WD/WN, vitals as above, NAD, sitting up in bed, pleasant, conversing easily Head: Normocephalic, Atraumatic Eyes: PERRL, conjunctivae normal, anicteric sclerae ENMT: external ear and nose normal, oropharynx normal Neck: trachea midline, no thyromegaly normal visual inspection Respiratory: normal respiratory effort, lungs clear to auscultation, no wheeze, rales, rhonchi. Normal insp/exp effort, no accessory muscle use Cardiovascular: RRR, no murmur, no edema, obese lower ext Vessels: no JVD or carotid bruit Chest: normal inspection of chest Abdomen:obese abd, normal bowel sounds, soft, nontender, no hepatosplenomegaly Musculoskeletal: no cyanosis or clubbing, RLE NVI, pain to tibial plat,R foot inverted Skin: no rashes, warm and dry normal turgor Neurologic: PERRL, EOMI, accommodation nl, no face palsy, no dysarthria CN's II-XI intact bilaterally and moves all extremities Psychiatric: A+Ox3, euthymic affect Lymphatic: no cervical or axillary lymphadenopathy : deferred Results & Data Results & Data Vital Signs (Past 12 Hours) Vital Signs Temp Pulse Resp BP Pulse Ox 03/11/23 15:01 37 C 98 H 16 145/78 H 100 Laboratory Results I have independently reviewed and interpreted patient's admitting labs including CBC, CMP, PTT, PT/INR. Diagnostic Findings Cervical Spine CT 03/11/23 15:30 CT cervical spine wo con CLINICAL HISTORY: Trauma TECHNIQUE: Multidetector row helical CT of the cervical spine was performed without administration of intravenous contrast. Coronal and sagittal reformations were obtained. Automated dose lowering techniques and/or adjustment according to patient size were utilized for this exam. Comparison: Comparison is made to CT soft tissue neck 10/13/2019 FINDINGS: No acute fractures or subluxations are identified. Degenerative changes are seen in the visualized spine. The alignment is normal. Biapical scarring is seen in the lungs. IMPRESSION: Degenerative changes without evidence of acute bony injury. ACT 112: Negative or not required by law. Electronically signed by: John Wallis M.D. 03/11/2023 4:58 PM Elbow X-Ray 03/11/23 15:30 XR elbow RT min 3V routine CLINICAL HISTORY: Trauma. Fall. Right elbow pain. COMPARISON STUDY: None. FINDINGS: No fracture or dislocation within the right elbow. Soft tissues are unremarkable. No elbow effusion. No radiopaque foreign bodies. IMPRESSION: No fracture or dislocation within the right elbow. ACT 112: Negative or not required by law. Electronically signed by: Baltazar Mendez M.D. 03/11/2023 4:[address] 03/11/23 15:30 CT head/brain wo con CLINICAL HISTORY: Trauma Technique: Contiguous axial CT images of the head were acquired from the base of the skull to the vertex without intravenous contrast administration. Images were viewed in brain, subdural and bone windows. Automated dose lowering techniques and/or adjustment according to patient size were utilized for this exam. Comparison: None available at the time of this dictation. Findings: The ventricles, basal cisterns, and cerebral sulci are normal. There is no acute intracranial hemorrhage or evidence of acute territorial infarction. Neither mass effect, shift of the midline structures, nor abnormal extra-axial fluid collections are shown. ENCEPHALOMALACIA IN THE LEFT BASAL GANGLIA LIKELY CORRESPONDS TO A PRIOR LACUNAR INFARCT. Imaged portions of the paranasal sinuses and mastoid air cells are clear. The orbits appear normal. There are no acute fractures of the calvaria or scalp swelling. Impression: No acute intracranial hemorrhage, no evidence of acute territorial infarction or other acute intracranial disease process. ACT 112: Negative or not required by law. Electronically signed by: John Wallis M.D. 03/11/2023 4:52 PM Knee X-Ray 03/11/23 15:30 XR knee RT 3V, XR tibia fibula RT 2V, XR ankle RT min 3V routine CLINICAL HISTORY: Trauma TECHNIQUE: 2 views of the right knee were obtained. 2 views of the right tibia and fibula were obtained. 3 views of the ankle were obtained. Comparison: None available at the time of this dictation. FINDINGS: Comminuted, mildly displaced fractures of the proximal fibular metaphysis and tibial metadiaphysis. Degenerative changes are seen in the knee joint. No joint effusion is seen. Soft tissue swelling is seen throughout the lower extremity and in the ankle. IMPRESSION: Comminuted, displaced fractures of the proximal fibular metaphysis and tibial metadiaphysis. No definite articular involvement. ACT 112: Negative or not required by law. Electronically signed by: John Wallis M.D. 03/11/2023 4:[address] 03/11/23 15:30 CT lumbar spine wo con CLINICAL HISTORY: Trauma TECHNIQUE: Multidetector row helical CT of the lumbar spine was performed without administration of intravenous contrast. Coronal and sagittal reformations were obtained. Automated dose lowering techniques and/or adjustment according to patient size were utilized for this exam. Comparison: Comparison is made to lumbar spine radiographs 09/15/2019 FINDINGS: For counting purposes, the last complete intervertebral disc space is considered L5-S1. There is a anterior compression deformity of L1 which appears chronic. Rudimentary ribs are seen bilaterally at L1. Degenerative changes are noted in the visualized spine. Vertebral body alignment is within normal limits. Surrounding soft tissues are unremarkable. IMPRESSION: Degenerative changes without evidence of acute bony injury. ACT 112: Negative or not required by law. Electronically signed by: John Wallis M.D. 03/11/2023 5:07 PM Tibia/Fibula X-Ray 03/11/23 15:30 XR knee RT 3V, XR tibia fibula RT 2V, XR ankle RT min 3V routine CLINICAL HISTORY: Trauma TECHNIQUE: 2 views of the right knee were obtained. 2 views of the right tibia and fibula were obtained. 3 views of the ankle were obtained. Comparison: None available at the time of this dictation. FINDINGS: Comminuted, mildly displaced fractures of the proximal fibular metaphysis and ti bial metadiaphysis. Degenerative changes are seen in the knee joint. No joint effusion is seen. Soft tissue swelling is seen throughout the lower extremity and in the ankle. IMPRESSION: Comminuted, displaced fractures of the proximal fibular metaphysis and tibial metadiaphysis. No definite articular involvement. ACT 112: Negative or not required by law. Electronically signed by: John Wallis M.D. 03/11/2023 4:49 PM Ankle X-Ray 03/11/23 16:08 XR knee RT 3V, XR tibia fibula RT 2V, XR ankle RT min 3V routine CLINICAL HISTORY: Trauma TECHNIQUE: 2 views of the right knee were obtained. 2 views of the right tibia and fibula were obtained. 3 views of the ankle were obtained. Comparison: None available at the time of this dictation. FINDINGS: Comminuted, mildly displaced fractures of the proximal fibular metaphysis and tibial metadiaphysis. Degenerative changes are seen in the knee joint. No joint effusion is seen. Soft tissue swelling is seen throughout the lower extremity and in the ankle. IMPRESSION: Comminuted, displaced fractures of the proximal fibular metaphysis and tibial metadiaphysis. No definite articular involvement. ACT 112: Negative or not required by law. Electronically signed by: John Wallis M.D. 03/11/2023 4:49 PM Chest X-Ray 03/11/23 17:03 XR chest 1V portable CLINICAL HISTORY: Pre-op TECHNIQUE: Single frontal radiograph of the chest was obtained. Comparison: Comparison is made to chest radiograph 10/13/2019 FINDINGS: No lines and tubes are seen. The cardiomediastinal silhouette is normal. The lungs are clear. No evidence of pleural effusion or pneumothorax. IMPRESSION: No acute chest disease. ACT 112: Negative or not required by law. Electronically signed by: John Wallis M.D. 03/11/2023 5:43 PM Medications Administered Medication List Discontinued Medications Acetaminophen (Acetaminophen 500 Mg Tab) 1,000 mg PO NOW STA Stop: 03/11/23 15:31 Last Admin: 03/11/23 15:34 Dose: 1,000 mg Documented By: HS Fentanyl Citrate (Fentanyl Citrate Pf 100 Mcg/2 Ml Vial) 25 mcg IV NOW STA Stop: 03/11/23 17:06 Last Admin: 03/11/23 17:22 Dose: 25 mcg Documented By: HS Sodium Chloride (Nss) 500 mls @ 999 mls/hr IV .Q31M ONE Stop: 03/11/23 17:33 Last Admin: 03/11/23 17:22 Dose: 999 mls/hr Documented By: HS Ondansetron HCl (Ondansetron Inj 2 Mg/Ml 2 Ml Vial) 4 mg IV NOW STA Stop: 03/11/23 17:06 Last Admin: 03/11/23 17:22 Dose: 4 mg Documented By: HS ECG Rate (beats per minute): 105 Rhythm: sinus tachycardia Additional Comments: I have independently reviewed and interpreted patient's admitting EKG which revealed: Sinus tachy, 105bpm, no st t wave changes COVID-19 Results Results COVID-19 Adm Lab Results: RBC 3.86 M/uL (4.20-5.40) L 03/11/23 WBC 11.79 K/ul (4.8-10.8) H 03/11/23 Hgb 12.9 g/dl (12.0-16.0) 03/11/23 Hct 37.9 % (37.0-47.0) 03/11/23 Plt Count 179 K/uL (130-400) 03/11/23 Neutrophils (%) (Auto) 86.2 % 03/11/23 Lymphocytes (%) (Auto) 6.4 % 03/11/23 Monocytes # (Auto) 0.77 K/uL (0.11-0.59) H 03/11/23 Eosinophils # (Auto) 0.04 K/uL (0.00-0.50) 03/11/23 Immature Granulocyte % (Auto) 0.3 % 03/11/23 Neutrophils # (Auto) 10.16 K/uL (1.40-6.50) H 03/11/23 Lymphocytes # (Auto) 0.75 K/uL (1.20-3.40) L 03/11/23 Monocytes # (Auto) 0.77 K/uL (0.11-0.59) H 03/11/23 Eosinophils # (Auto) 0.04 K/uL (0.00-0.50) 03/11/23 Basophils # (Auto) 0.03 K/uL (0.00-0.20) 03/11/23 Immature Granulocyte # (Auto) 0.04 K/uL (0.01-0.20) 3 Na 137 mmol/L (136-145) 03/11/23 K TNP 03/11/23 Cl 104 mmol/L (98-107) 03/11/23 CO2 24 mmol/L (21-32) 03/11/23 Anion Gap 9 (3-11) 03/11/23 BUN 26 mg/dl (6-23) H 03/11/23 Creatinine 1.43 mg/dl (0.6-1.2) H 03/11/23 BUN/Creatinine Ratio 18.2 (10-20) 03/11/23 Glucose Level 108 mg/dl (70-99(Fasting)) H 03/11/23 Ca 9.0 mg/dl (8.6-10.3) 03/11/23 Total Bilirubin 0.6 mg/dl (0.2-1.0) 03/11/23 AST/SGOT TNP 03/11/23 ALT/SGPT 12 U/L (7-52) 03/11/23 Alkaline Phosphatase 51 U/L (34-104) 03/11/23 Total Protein 6.6 gm/dl (6.0-8.3) 03/11/23 Albumin 3.9 gm/dl (3.4-5.0) 03/11/23 Globulin 2.7 gm/dl (2.5-4.0) 03/11/23 Albumin/Globulin Ratio 1.4 (0.9-2) 03/11/23 Chest X-Ray 03/11/23 Code Status & VTE Plan Code Status FULL CODE VTE Prophylaxis Plan VTE Prophylaxis will be ordered: Yes Supervising Physician Co-Signing Physician Notes I have seen and discussed the case with the collaborating RAMA. I agree with the above H&P. I have reviewed and confirmed the patients medical history, the findings on physical examination, and the patients diagnosis and treatment plan with Randolph ONTIVEROS and agree with the information documented. In short, Ms Benson is a 78 year old woman with past medical history remarkable for HTN, CKD III and HLD who is admitted due to pain after falling from step stool. Imaging revealed a communicated, displaced fractures of tib/fib on right. Labs with slight leukocytosis. Exam notable for pleasant woman,, but with notable RLE limiting movement of right knee and right ankle. Plan for NPO at midnight, pain management as above, and ORTHO consult for s urgical intervention likely in coming am. Rest of plan as above. (1) Fracture of right tibia and fibula Encounter type: initial encounter Fracture type: closed Qualified Code(s): S82.201A - Unspecified fracture of shaft of right tibia, initial encounter for closed fracture; S82.401A - Unspecified fracture of shaft of right fibula, initial encounter for closed fracture (2) Fall Encounter type: initial encounter Qualified Code(s): W19.XXXA - Unspecified fall, initial encounter (3) HTN (hypertension) Hypertension type: primary hypertension Qualified Code(s): I10 - Essential (primary) hypertension (5) Obesity Body mass index: BMI 35.0-35.9 Obesity classification: adult class 2 (BMI 35 - 39.9) Obesity type: due to excess calories Serious obesity comorbidity presence: with serious comorbidity Qualified Code(s): E66.01 - Morbid (severe) obesity due to excess calories; Z68.35 - Body mass index [BMI] 35.0-35.9, adult
--- NOTE | 2023-03-11 17:44 | XRay Report ---
XR chest 1V portable CLINICAL HISTORY: Pre-op TECHNIQUE: Single frontal radiograph of the chest was obtained. Comparison: Comparison is made to chest radiograph 10/13/2019 FINDINGS: No lines and tubes are seen. The cardiomediastinal silhouette is normal. The lungs are clear. No evid ence of pleural effusion or pneumothorax. IMPRESSION: No acute chest disease. ACT 112: Negative or not required by law. Electronically signed by: John Wallis M.D. 03/11/2023 5:43 PM
[2023-03-11 18:02] LABS: Basophils # (auto) 0.03 K/uL (0.00-0.20); Basophils % (auto) 0.3 %; Eosinophils # (auto) 0.04 K/uL (0.00-0.50); Eosinophils % (auto) 0.3 %; Hematocrit (blood only) 37.9 % (37.0-47.0); Hemoglobin 12.9 g/dl (12.0-16.0); Immature Granulocytes # (auto) 0.04 K/uL (0.01-0.20); Immature Granulocytes % (auto) 0.3 %; Lymphocytes # (auto) 0.75 K/uL (1.20-3.40); Lymphocytes % (auto) 6.4 %; Mean Corpuscular Hemoglobin 33.4 pg (25.0-34.0); Mean Corpuscular Volume 98.2 fL (80.0-100.0); Mean Platelet Volume 10.7 fL (9.4-12.4); Monocytes # (auto) 0.77 K/uL (0.11-0.59); Monocytes % (auto) 6.5 %; Neutrophils # (auto) 10.16 K/uL (1.40-6.50); Neutrophils % (auto) 86.2 %; Platelet Count 179 K/uL (130-400); RDW Coefficient of Variation 12.9 % (11.5-14.5); RDW Standard Deviation 45.9 fL (36.4-46.3); Red Blood Count 3.86 M/uL (4.20-5.40); White Blood Count 11.79 K/ul (4.8-10.8)
[2023-03-11 18:21] LABS: Alanine Aminotransferase 12 U/L (7-52); Albumin Globulin Ratio 1.4 (0.9-2); Albumin Level 3.9 gm/dl (3.4-5.0); Alkaline Phosphatase 51 U/L (34-104); Anion Gap 9 (3-11); BUN Creatinine Ratio 18.2 (10-20); Bilirubin,Total 0.6 mg/dl (0.2-1.0); Blood Urea Nitrogen 26 mg/dl (6-23); Carbon Dioxide 24 mmol/L (21-32); Chloride 104 mmol/L (98-107); Creatinine Clr Calc Pharmacy 38.2 ml/min; Est GFR (African American) 40.8 ml/min; Est GFR (Non-African American) 35.2 ml/min; Globulin 2.7 gm/dl (2.5-4.0); Glucose 108 mg/dl (70-99(Fasting)); Sodium 137 mmol/L (136-145); Total Protein 6.6 gm/dl (6.0-8.3)
[2023-03-11 20:43] LABS: Potassium 4.7 mmol/L (3.5-5.1)
[2023-03-11 21:03] LABS: Partial Thromboplastin Ratio 0.9; Partial Thromboplastin Time 25 Seconds (21-31); Prothrombin Time 10.7 Seconds (9.0-12.0)
[2023-03-11] MEDS ORDERED: MAGNESIUM HYDROXIDE SUSP 30 ML UDC PO PRN (21:34)
[2023-03-11] MEDS ORDERED: ALUMINUM/MAGNESIUM SUSP 30 ML UDC PO PRN (21:34)
[2023-03-11] MEDS ORDERED: ACETAMINOPHEN 325 MG TAB PO PRN (21:34)
[2023-03-11] MEDS ORDERED: POLYETHYLENE (MIRALAX) 17 GM PACK PO PRN (21:34)
[2023-03-11] MEDS ORDERED: LORazepam 0.5 MG TAB PO PRN (21:34)
[2023-03-11] MEDS ORDERED: MoRPHine SULFATE 4 MG/ML 1 ML CARP\\VIAL IV PRN (21:34)
[2023-03-11] MEDS ORDERED: ONDANSETRON INJ 2 MG/ML 2 ML VIAL IV PRN (21:34)
[2023-03-11] MEDS: oxyCODONE HCL IR 5 MG TAB (IMMEDIATE RELEASE) PO PRN (21:52)
[2023-03-11] MEDS ORDERED: HEPARIN SOD 5,000 UNIT/0.5 ML VIAL SQ ONE (22:00)
[2023-03-11] MEDS: DOCUSATE SODIUM/SENNA 50/8.6MG TAB PO SCH (22:07)
[2023-03-11] MEDS: ACETAMINOPHEN 325 MG TAB PO SCH (23:59)
[2023-03-12] MEDS ORDERED: SODIUM CHLORIDE 0.9% 1,000 ML IV SCH
--- OUTSIDE RECORDS SUMMARY | 2023-03-12 00:17 | External Medical Summary | Summary of Care ---
Author Name Unknown Organization [facility] Address [address] [facility] [place] [address] Phone [phone] Care Team Providers Care Field Broomer Name Role Phone Mamta Moreno DO Primary Care Provider [phone] Reason for Visit * Reason Onset Date Comments Other 02/10/2023 Medication Question 02/10/2023 Encounter Details Date Type Department Care Team (Late st Contact Info) Description 02/10/2023 Telephone Family Practice [facility] [address] [place] [address] Mamta Moreno DO [address] [place] [address] Other; Medication Question Allergies Active Allergy Reactions Criticality Noted Date Comments Aspirin Low 09/15/2019 States gets sick to stomach when taking higher dose, is fine with low dose ASA Simvastatin 01/22/2016 myalgias documented as of this encounter (statuses as of 02/10/2023) Medications Medication Sig Dispensed Refills Start Date End Date Status ASPIRIN 81 MG PO TABSIndications:Dis order of kidney and ureter one tab by mouth daily 34 0 12/23/2004 Active triamcinolone acetonide (ARISTOCORT) 0.1 % cream Apply topically to affected area 2 times a day. To affected area. 15 g 5 12/21/2017 Active Additional Information Patient not taking.Reported on 07/08/2022 Calcium Carb-Cholecalcifero l 600-800 MG-UNIT CHEW 1 Tab. 0 2018 Active Bumetanide 1 MG Oral Tablet (Bumex)Indications: Lower extremity edema TAKE 1/2 TABLET BY MOUTH EVERY DAY NEEDED SWELLING 45 Tablet 1 02/19/2021 Active LORazepam 0.5 MG Oral Tablet (Ativan)Indications :Adjustment disorder with anxious mood,Kidney disease, chronic, stage III (GFR 30-59 ml/min) (HCC) Take 1 Tablet by mouth daily as needed for Anxiety. 90 Tablet 0 09/26/2022 Active Lisinopril-hydroCHL OROthiazide 20-25 MG Oral TabletIndications:E ssential hypertension with goal blood pressure less than 140/90 TAKE ONE TABLET BY MOUTH EVERY MORNING. 100 Tablet 2 10/17/2022 Active Rosuvastatin Calcium 5 MG Oral Tablet (Crestor)Indication s:Dyslipidemia, goal LDL below 100 TAKE ONE TABLET BY MOUTH EVERY MORNING. 100 Tablet 2 10/17/2022 Active documented as of this encounter (statuses as of 02/10/2023) Active Problems Problem Noted Date Diagnosed Date Chronic kidney disease, stage 3a 07/31/2020 Overview: Per CKD protocol Hypertensive kidney disease with stage 3a chronic kidney disease 01/30/2020 Overview: Per CKD protocol Anxiety, generalized 10/21/2019 Essential hypertension with goal blood pressure less than 140/90 12/17/2015 Obesity, morbid (more than 1 00 lbs over ideal weight or BMI > 40) 09/04/2009 Overview: Per Obesity Protocol, #19 ICD-10 update of inactive term Dyslipidemia, goal LDL below 100 03/07/2009 ADVANCE DIRECTIVE INFORMATION 08/24/2006 Overview: Yes-advised to bring copy in to be scanned into EMR. documented as of this encounter (statuses as of 02/10/2023) Resolved Problems Problem Noted Date Diagnosed Date Resolved Date Hypertensive kidney disease with chronic kidney disease stage III 06/26/2020 06/14/2021 Hypertensive kidney disease with chronic kidney disease stage III 06/24/2018 02/02/2020 Overview: Per CKD protocol Kidney disease, chronic, sta ge III (GFR 30-59 ml/min) 12/10/2012 06/30/2018 Dyslipidemia, goal to be determined 07/26/2003 03/07/2009 documented as of this encounter (statuses as of 02/10/2023) Immunizations Name Administration Dates Next Due Pneumococcal Conjugate Vacc, 13 Valent (Prevnar) 07/06/2018 TD - Tetanus/Diptheria (ADULT) 01/21/1998 TDAP (age 10 and older)(Boostrix) 11/18/2019 TDAP (age 11 and older)(Adacel) 09/05/2009 documented as of this encounter Social History Tobacco Use Types Packs/Day Years Used Date Smoking Tobacco: Never Smokeless Tobacco: Never Alcohol Use Standard Drinks/Week Comments No 0 (1 standard drink = 0.6 oz pur e alcohol) PHQ-2 Answer Date Recorded PHQ Adult Total Score 2 06/26/2020 Hunger Vital Sign Answer Date Recorded Worried About Running Out of Food in the Last Ye ar Never true 10/21/2019 Ran Out of Food in the Last Year Never true 10/21/2019 Sex and Gender Information Value Date Recorded Sex Assigned at Not on file Gender Identity Not on file Sexual Orientation Not on file Job Start Date Occupation Industry Not on file Not on file Not on file documented as of this encounter Miscellaneous Notes * Telephone Encounter - Alivia Crowe CPhT - 02/10/2023 10:15 AM EST Patient only has a few left. Spoke to Zoe in [place] and she will overnight medications. Thank you, Alivia Crowe CPhT Head Transfer Clerk II [facility] ( Formerly Telepharmacy) 02/10/2023,10:15 AM * Telephone Encounter - Ayla Ledezma CPhT - 02/10/2023 10:00 AM EST Pt calling to request Rosuvastatin Calcium 5 MG Oral Tablet (Crestor) and Lisinopril-hydroCHLOROthiazide 20-25 MG Oral Tablet . Informed pt that RX is available at their pharmacy. Pt verbalized understanding and stated they will check with their pharmacy regarding this medication. Thank you, Sushila Ledezma Resident Engineer I [facility] Pharm[facility] Services (Formerly Telepharmacy) 02/10/2023,10:01 AM documented in this encounter Plan of Treatment Upcoming Encounters Date Type Department Care Team (Late st Contact Info) Description 07/14/2023 10:40 AM EDT Office Visit Family [facility] [address] [place] [address] Mamta Moreno DO [address] [place] [address] Health Maintenance Due Date Last Done Comments COVID-19 Vaccine (#1) 1945 Zoster Vaccines (1 of 2) 02/01/1996 DXA Scan 2011 Pneumococcal Vaccine: 65+ Years (2 - PPSV23 or PCV20) 07/07/2019 07/06/2018 Depression Screening 06/26/2021 06/26/2020 Influenza Vaccine (FLU shot) (#1) 2022 GFR 01/07/2023 07/08/2022, 04/0 08/2020, 09/22/2019, Additional history exists Albumin/Creatinine Ratio 07/09/202307/08/2 023, 12/17/2015, 12/14/2014, Additional history exists CKD HGB USE SMARTSET 51657 07/09/202307/08, 06/26/2020, 12/07/2018, Additional history exists CKD PHOS USE SMARTSET 71786 07/09/2023 04/10/2022, 12/07/2018, 12/18/2016, Additional history exists DTaP,Tdap,and Td Vaccines (3 - Td or Tdap) 11/17/2029 11/18/2019, 09/05/2009, 01/21/1998 GARDASIL-HPV IMMUNIZATION SERIES Aged Out No longer eligible based on patient's age to complete this topic Hepatitis B Aged Out No longer eligi ble based on patient's age to complete this topic MENINGOCOCCAL (MENACTRA/MENVEO) Aged Out No longer eligible based on patient's age to complete this topic documented as of this encounter Medical Devices Not on filedocumented as of this encounter Advance Directives Documents on File Type Date Recorded Patient Vice President Talent Management Expl anation Advance Directives and Living Will 09/08/2017 ADVANCE DIRECTIVE / LIVING WILL Advance Directives and Living Will 09/08/2017 ADVANCE DIRECTIVE / LIVING WILL Power of Master Ocean 09/08/2017 POWER OF A TTORNEY MEDICAL Power of Master Ocean 09/08/2017 POWER OF A TTORNEY GENERAL Advance Directives and Living Will 12/30/2016 ADVANCE DIRECTIVE Power of Master Ocean 12/30/2016 POWER OF A TTORNEY DURABLE GENERAL POA Power of Master Ocean 12/30/2016 POWER OF A TTORNEY DURABLE MEDICAL POA Care Teams Field Broomer Relationship Specialty Start Date End Date Mamta Moreno DO [address] [place] [address] PCP - General Family Medicine 04/13/19 documented as of this encounter
--- OUTSIDE RECORDS SUMMARY | 2023-03-12 00:17 | External Medical Summary | Summary of Care ---
Author Name Unknown Organization [facility] Address [address] [facility] [place] [address] Phone [phone] Care Team Providers Care Media Services Director Name Role Phone Mamta Moreno DO Primary Care Provider [phone] Reason for Visit * Reason Onset Date Comments Medication Refill 01/01/2023 Encounter Details Date Type Department Care Team Description 01/01/2023 Refill Family [facility] [address] [place] [address] Mamta Moreno DO [address] [place] [address] Adjustment disorder with anxious mood; Kidney disease, chronic, stage III (GFR 30-59 ml/min) ([facility]) Allergies Active Allergy Reactions Severity Noted Date Comments Aspirin Low 09/15/2019 States gets sick to stomach when taking higher dose, is fine with low dose ASA Simvastatin 01/22/2016 myalgias documented as of this encounter (statuses as of 01/02/2023) Medications Medication Sig Dispensed Refills Start Date [...] as of this encounter (statuses as of 01/02/2023) Active Problems Problem Noted Date Chronic kidney disease, stage 3a 021 Overview: Per CKD protocol Hypertensive kidney disease with stage 3 a chronic kidney disease 01/30/2020 Overview: Per CKD protocol Anxiety, generalized 10/21/2019 Essential hypertension with goal blood p ressure less than 140/90 12/17/2015 Obesity, morbid (more than 100 lbs over ideal weight or BMI > 40) 09/04/2009 Overview: Per Obesity Protocol, #19 ICD-10 update of inactive term Dyslipidemia, goal LDL below 100 009 ADVANCE DIRECTIVE INFORMATION 08/24/2006 Overview: Yes-advised to bring copy in to be scanned into EMR. documented as of this encounter (statuses as of 01/02/2023) Resolved Problems Problem Noted Date Resolved Date Hypertensive kidney disease with chronic kidney disease stage III 06/26/2020 06/14/2021 Hypertensive kidney disease with chronic kidney disease stage III 06/24/2018 02/02/2020 Overview: Per CKD protocol Kidney disease, chronic, stage III (GFR 30-59 ml /min) 12/10/2012 06/30/2018 Dyslipidemia, goal to be determined 07/26/2003 03/07/2009 documented as of this encounter (statuses as of 01/02/2023) Immunizations Name Administration Dates Next Due Pneumococcal Conjugate Vacc, 13 Valent (Prevnar) 07/06/2018 TDAP (age 10 and older)(Boostrix) 11/18/2019 TDAP (age 11 and older)(Adacel) 09/05/2009 documented as of this encounter Social History Tobacco Use Types Packs/Day Years Used Date Smoking Tobacco: Never Smokeless Tobacco: Never Alcohol Use Standard Drinks/Week Comments No 0 (1 standard drink = 0.6 oz pur e alcohol) Food Insecurity Answer Date Recorded Within the past 12 months, y ou worried that your food would run out before you got money to buy more. Never true 10/21/2019 Within the past 12 months, t he food you bought just didn't last and you didn't have money to get more. Never true 10/21/2019 Sex Assigned at Date Recorded Not on file Job Start Date Occupation Industry Not on file Not on file Not on file documented as of this encounter Miscellaneous Notes * Telephone Encounter - Kristi Gaytan [facility] - 01/02/2023 10:24 AM EDT I have reviewed the patients controlled substance dispensing history in the Prescription Drug Monitoring Program in compliance with the [facility] regulations before prescribing a controlled substance. PDMP checked on 01/02/2023. Pending Prescriptions: Disp Refills LORazepam 0.5 MG Oral Tablet (Ativan) 90 Tab*0 Sig: Take 1 Tablet by mouth daily as needed for Anxiety. Last Visit: 07/08/2022 (in office), Visit date not found (telemedicine) Next Visit: 07/14/2023 Date medication was last filled: 10/13/2022 Date medication is due for refill: 11/13/2022 Pharmacy: [facility] Is this request for a controlled substance? Yes and Urine Drug Screen Not completed Toxicology results: No results found for this or any previous visit. Pt should still have #60 left on previous rx - contacted [place] - they refilled off of the remaining rx. Thanks, Kristi Gaytan, PharmD, MS Clinical Pharmacist Centralized Clinical Pharmacy Services ([facility]) (Formerly Telepharmacy) [phone] 01/02/2023 10:24 AM * Telephone Encounter - MILADYS Pavon - 01/01/2023 8:47 AM EDT Did you pend patient's preferred pharmacy and medication before forwarding?yes Pharmacy: [facility] Pending Prescriptions: Disp Refills LORazepam 0.5 MG Oral Tablet (Ativan) 90 Tab*0 Sig: Take 1 Tablet by mouth daily as needed for Anxiety. Last Visit: 07/08/2022 (in office), Visit date not found (telemedicine) Next Visit: 07/14/2023 If no future appointments scheduled, and last appointment is greater than a year ago, please schedule patient for a follow-up appointment Last date the medication was ordered: 09/26/2022 Is this request for a controlled substance?Yes, What was the last refill date 09/26/2022 w/ quantity 90 TAB and dosage 0.5 MG and Urine Drug Screen Not completed Urine Drug Screen:No results found for this or any previous visit. Patient Phone Numbers Labs: Lab Results Component Value Date/Time CREAT 1.3 (H) 07/08/2022 11:25 AM CREAT 1.1 (H) 09/22/2019 09:31 AM POTASSIUM 4.6 07/08/2022 11:25 AM POTASSIUM 4.4 09/22/2019 09:31 AM POTASSIUM 4.4 01/01/1996 02:15 PM TSH 4.40 (H) 03/07/2011 11:28 AM LDLCALC 71 06/28/2021 12:11 PM LDLCALC 52 12/07/2018 11:09 AM LDLDIRECT NOT APPLICABLE 12/07/2018 11:09 AM LDLDIRECT 78 12/18/2016 11:17 AM ALT 13 12/18/2016 11:17 AM documented in this encounter Plan of Treatment Upcoming Encounters Date Type Specialty Care Team Description 07/14/2023 Office Visit Family Medicine Mamta Moreno, DO [address] [place] [address] Health Maintenance Due Date Last Done Comments COVID-19 Vaccine (#1) 1945 Zoster Vaccines (1 of 2) 02/01/1996 DXA Scan 2011 Pneumococcal Vaccine: 65+ Years (2 - PPSV23 or PCV20) 07/07/2019 07/06/2018 Depression Screening 06/26/2021 06/26/2020 Influenza Vaccine (FLU shot) (#1) 2022 GFR 01/07/2023 07/08/2022, 04/0 08/2020, 09/22/2019, Additional history exists Albumin/Creatinine Ratio 07/09/2023 023, 12/17/2015, 12/14/2014, Additional history exists CKD HGB USE SMARTSET 99385 07/09/202307/08, 06/26/2020, 12/07/2018, Additional history exists CKD PHOS USE SMARTSET 15800 07/09/202306/21, 12/07/2018, 12/18/2016, Additional history exists DTaP,Tdap,and Td [...] Not on filedocumented as of this encounter Visit Diagnoses Diagnosis Adjustment disorder with anxious mood Adjustment disorder with anxiety Kidney disease, chronic, stage III (GFR 30-59 ml/min) (HCC) Chronic kidney disease, Stage III (moderate) documented in this encounter Advance Directives Documents on File Type Date Recorded Patient Battery Loader Expl anation Advance Directives and Living Will 09/08/2017 ADVANCE DIRECTIVE / LIVING WILL Advance Directives and Living Will 09/08/2017 ADVANCE DIRECTIVE / LIVING WILL Power of Robotic Technician 09/08/2017 POWER OF A TTORNEY MEDICAL Power of Robotic Technician 09/08/2017 POWER OF A TTORNEY GENERAL Advance Directives and Living Will 12/30/2016 ADVANCE DIRECTIVE Power of Robotic Technician 12/30/2016 POWER OF A TTORNEY DURABLE GENERAL POA Power of Robotic Technician 12/30/2016 POWER OF A TTORNEY DURABLE MEDICAL POA Care Teams Media Services Director Relationship Specialty Start Date End Date Mamta Moreno, DO [address] [place] [address] PCP - General Family Medicine 04/13/19 documented as of this encounter
--- OUTSIDE RECORDS SUMMARY | 2023-03-12 00:17 | External Medical Summary | Summary of Care ---
Author Name Unknown Organization [facility] Address [address] [facility] [place] [address] Phone [phone] Care Team Providers Care Clinical Statistical Programmer Name Role Phone Mamta Moreno DO Primary Care Provider [phone] Reason for Visit * Reason Onset Date Comments Other 02/10/2023 Medication Question 02/10/2023 Encounter Details Date Type Department Care Team (Late st Contact Info) Description 02/10/2023 Telephone Family Practice [facility] [address] [place] [address] Mamta Moreno DO [address] [place] [address] Other; Medication Question Allergies Active Allergy Reactions [...] a few left. Spoke to Zoe in [place] and she will overnight medications. Thank you, Alivia Crowe CPhT Multifocal Lens Assembler II Centralized Clinical Pharmacy Services ( Formerly [...] regarding this medication. Thank you, Sushila Ledezma Account Financial Manager I Centralized Clinical Pharmacy Services (Formerly Telepharmacy) 02/10/2023,10:01 AM documented in this encounter Plan of Treatment Upcoming Encounters Date Type Department Care Team (Late st Contact Info) Description 07/14/2023 10:40 AM EDT Office Visit Family [facility] [address] [place] [address] Mamta Moreno DO [address] [place] [address] Health Maintenance Due Date Last Done Comments COVID-19 Vaccine (#1) 1945 Zoster Vaccines (1 of 2) 02/01/1996 DXA Scan 2011 Pneumococcal Vaccine: 65+ Years (2 - PPSV23 or PCV20) 07/07/2019 07/06/2018 Depression Screening 06/26/2021 06/26/2020 Influenza Vaccine (FLU shot) (#1) 2022 GFR 01/07/2023 07/08/2022, 04/0 08/2020, 09/22/2019, Additional history exists Albumin/Creatinine Ratio 07/09/202307/08/2 023, 12/17/2015, 12/14/2014, Additional history exists CKD HGB USE SMARTSET 71756 07/09/202307/08, 06/26/2020, 12/07/2018, Additional history exists CKD PHOS USE SMARTSET 97973 07/09/2023 04/10/2022, 12/07/2018, 12/18/2016, Additional history exists [...] Documents on File Type Date Recorded Patient Human Resources Representative Expl anation Advance Directives and Living Will 09/08/2017 ADVANCE DIRECTIVE / LIVING WILL Advance Directives and Living Will 09/08/2017 ADVANCE DIRECTIVE / LIVING WILL Power of Banana Grader 09/08/2017 POWER OF A TTORNEY MEDICAL Power of Banana Grader 09/08/2017 POWER OF A TTORNEY GENERAL Advance Directives and Living Will 12/30/2016 ADVANCE DIRECTIVE Power of Banana Grader 12/30/2016 POWER OF A TTORNEY DURABLE GENERAL POA Power of Banana Grader 12/30/2016 POWER OF A TTORNEY DURABLE MEDICAL POA Care Teams Clinical Statistical Programmer Relationship Specialty Start Date End Date Mamta Moreno DO [address] [place] [address] PCP - General Family Medicine 04/13/19 documented as of this encounter
--- OUTSIDE RECORDS SUMMARY | 2023-03-12 00:17 | External Medical Summary | Summary of Care ---
Author Name Unknown Organization [facility] Address [address] [facility] [place] [address] Phone [phone] Care Team Providers Care Social Media Community Manager Name Role Phone Prem Boyce DO Primary Care Provider [phone] Reason for Visit * Reason Onset Date Comments Medication Refill 02/27/2023 Encounter Details Date Type Department Care Team (Late st Contact Info) Description 02/27/2023 Refill Family Practice [facility] [address] [place] [address] Prem Boyce DO [address] [place] [address] Adjustment disorder with anxious mood; Kidney disease, chronic, stage III (GFR 30-59 ml/min) ([facility]) Allergies Active Allergy Reactions Criticality Noted Date Comments Aspirin Low 09/15/2019 States gets sick to stomach when taking higher dose, is fine with low dose ASA Simvastatin 01/22/2016 myalgias documented as of this encounter (statuses as of 03/02/2023) Medications Medication Sig Dispensed Refills Start Date End Date Status ASPIRIN 81 MG PO TABSIndications:Di sorder of kidney and ureter one tab by mouth daily 34 0 12/23/2004 Active triamcinolone acetonide (ARISTOCORT) 0.1 % cream Apply topically to affected area 2 times a day. To affected area. 15 g 5 12/21/2017 Active Additional Information Patient not taking.Reported on 07/08/2022 Calcium Carb-Cholecalcifer ol 600-800 MG-UNIT CHEW 1 Tab. 0 2018 Active Bumetanide 1 MG Oral Tablet (Bumex)Indications :Lower extremity edema TAKE 1/2 TABLET BY MOUTH EVERY DAY NEEDED SWELLING 45 Tablet 1 02/19/2021 Active Lisinopril-hydroCH LOROthiazide 20-25 MG Oral TabletIndications: Essential hypertension with goal blood pressure less than 140/90 TAKE ONE TABLET BY MOUTH EVERY MORNING. 100 Tablet 2 10/17/2022 Active Rosuvastatin Calcium 5 MG Oral Tablet (Crestor)Indicatio ns:Dyslipidemia, goal LDL below 100 TAKE ONE TABLET BY MOUTH EVERY MORNING. 100 Tablet 2 10/17/2022 Active LORazepam 0.5 MG Oral Tablet (Ativan)Indication s:Adjustment disorder with anxious mood,Kidney disease, chronic, stage III (GFR 30-59 ml/min) ([facility]) Take 1 Tablet by mouth daily as needed for Anxiety. 90 Tablet 0 03/02/2023 Active LORazepam 0.5 MG Oral Tablet (Ativan)Indication s:Adjustment disorder with anxious mood,Kidney disease, chronic, stage III (GFR 30-59 ml/min) ([facility]) Take 1 Tablet by mouth daily as needed for Anxiety. 90 Tablet 0 09/26/2022 3 Discontinue d(Refill) documented as of this encounter (statuses as of 03/02/2023) Active Problems Problem Noted Date Diagnosed Date [...] as of this encounter (statuses as of 03/02/2023) Resolved Problems Problem Noted Date Diagnosed Date Resolved Date Hypertensive kidney disease with chronic kidney disease stage III 06/26/2020 06/14/2021 Hypertensive kidney disease with chronic kidney disease stage III 06/24/2018 02/02/2020 Overview: Per CKD protocol Kidney disease, chronic, sta ge III (GFR 30-59 ml/min) 12/10/2012 06/30/2018 Dyslipidemia, goal to be determined 07/26/2003 03/07/2009 documented as of this encounter (statuses as of 03/02/2023) Immunizations Name Administration Dates Next Due Pneumococcal [...] encounter Miscellaneous Notes * Telephone Encounter - rPem Boyce DO - 03/02/2023 1:17 PM ESTSigned Prescriptions: Disp Refills LORazepam 0.5 MG Oral Tablet (Ativan) 90 Tab*0 Sig: Take 1 Tablet by mouth daily as needed for Anxiety. Authorizing Provider: PREM BOYCE * Telephone Encounter - Emeli Garcia [facility] - 02/27/2023 3:41 PM ESTPending Prescriptions: Disp Refills LORazepam 0.5 MG Oral Tablet (Ativan) 90 Tab*0 Sig: Take 1 Tablet by mouth daily as needed for Anxiety. * Telephone Encounter - Emeli Garcia [facility] - 02/27/2023 3:41 PM EST I have reviewed the patients controlled substance dispensing history in the Prescription Drug Monitoring Program in compliance with the [facility] regulations before prescribing a controlled substance. PDMP checked on 02/27/2023. Pending Prescriptions: Disp Refills LORazepam 0.5 MG Oral Tablet (Ativan) 90 Tab*0 Sig: Take 1 Tablet by mouth daily as needed for Anxiety. Last Visit: 07/08/2022 (in office), Visit date not found (telemedicine) Next Visit: 07/14/2023 Date medication was last filled: 01/02/23 Date medication is due for refill: 02/01/23 Pharmacy: [facility] Is this request for a controlled substance? Yes and Urine Drug Screen Not completed Toxicology results: No results found for this or any previous visit. Please approve if appropriate. Thank You, Emeli Garcia [facility] Clinical Pharmacist Centralized Clinical Pharmacy Services ([facility]PS) (formerly Telepharmacy) [phone] 02/27/2023, 3:41 PM * Telephone Encounter - Nora Hernandez CPhT - 02/27/2023 2:05 PM EST Did you pend patient's preferred pharmacy and medication before forwarding?yes Pharmacy: [facility] Pending Prescriptions: Disp Refills LORazepam [...] last refill date 09/26/2022 w/ quantity 90 and dosage 0.5mg and Urine Drug Screen Not completed Urine [...] 07/14/2023 10:40 AM EDT Office Visit Family Practice [facility] [address] [place] [address] Prem Boyce DO [address] [place] [address] Health Maintenance Due Date Last Done Comments COVID-19 Vaccine (#1) 1945 Zoster Vaccines (1 of 2) 02/01/1996 DXA Scan 2011 Pneumococcal Vaccine: 65+ Years (2 - PPSV23 or PCV20) 07/07/2019 07/06/2018 Depression Screening 06/26/2021 06/26/2020 Influenza Vaccine (FLU shot) (#1) 2022 GFR 01/07/2023 07/08/2022, 04/0 08/2020, 09/22/2019, Additional history exists Albumin/Creatinine Ratio 07/09/2023 023, 12/17/2015, 12/14/2014, Additional history exists CKD HGB USE SMARTSET 84517 07/09/202307/08, 06/26/2020, 12/07/2018, Additional history exists CKD PHOS USE SMARTSET 99768 07/09/2023 0410/2022, 12/07/2018, 12/18/2016, Additional history exists DTaP,Tdap,and Td [...] Documents on File Type Date Recorded Patient Cosmetic Sales Consultant Expl anation Advance Directives and Living Will 09/08/2017 ADVANCE DIRECTIVE / LIVING WILL Advance Directives and Living Will 09/08/2017 ADVANCE DIRECTIVE / LIVING WILL Power of Sample Worker 09/08/2017 POWER OF A TTORNEY MEDICAL Power of Sample Worker 09/08/2017 POWER OF A TTORNEY GENERAL Advance Directives and Living Will 12/30/2016 ADVANCE DIRECTIVE Power of Sample Worker 12/30/2016 POWER OF A TTORNEY DURABLE GENERAL POA Power of Sample Worker 12/30/2016 POWER OF A TTORNEY DURABLE MEDICAL POA Care Teams Social Media Community Manager Relationship Specialty Start Date End Date Prem Boyce DO [address] [place] [address] PCP - General Family Medicine 04/13/19 documented as of this encounter
--- OUTSIDE RECORDS SUMMARY | 2023-03-12 00:17 | External Medical Summary | Summary of Care ---
Author Name Unknown Organization [facility] Address [address] [facility] [place] [address] Phone [phone] Care Team Providers Care Programs Assistant Name Role Phone Mamta Moreno DO Primary Care Provider [phone] Reason for Visit * Reason Onset Date Comments Health Maintenance 03/04/2023 Encounter Details Date Type Department Care Team (Late st Contact Info) Description 03/04/2023 Telephone Family Practice [facility] [address] [place] [address] Mamta Moreno DO [address] [place] [address] Health Maintenance Allergies Active Allergy Reactions Criticality Noted Date Comments Aspirin Low 09/15/2019 States gets sick to stomach when taking higher dose, is fine with low dose ASA Simvastatin 01/22/2016 myalgias documented as of this encounter (statuses as of 03/04/2023) Medications Medication Sig Dispensed Refills Start Date [...] NEEDED SWELLING 45 Tablet 1 02/19/2021 Active Lisinopril-hydroCHL OROthiazide 20-25 MG Oral TabletIndications:E ssential hypertension with goal blood pressure less than 140/90 TAKE ONE TABLET BY MOUTH EVERY MORNING. 100 Tablet 2 10/17/2022 Active Rosuvastatin Calcium 5 MG Oral Tablet (Crestor)Indication s:Dyslipidemia, goal LDL below 100 TAKE ONE TABLET BY MOUTH EVERY MORNING. 100 Tablet 2 10/17/2022 Active LORazepam 0.5 MG Oral Tablet (Ativan)Indications :Adjustment disorder with anxious mood,Kidney disease, chronic, stage III (GFR 30-59 ml/min) ([facility]) Take 1 Tablet by mouth daily as needed for Anxiety. 90 Tablet 0 03/02/2023 Active documented as of this encounter (statuses as of 03/04/2023) Active Problems Problem Noted Date Diagnosed Date [...] as of this encounter (statuses as of 03/04/2023) Resolved Problems Problem Noted Date Diagnosed Date Resolved Date Hypertensive kidney disease with chronic kidney disease stage III 06/26/2020 06/14/2021 Hypertensive kidney disease with chronic kidney disease stage III 06/24/2018 02/02/2020 Overview: Per CKD protocol Kidney disease, chronic, sta ge III (GFR 30-59 ml/min) 12/10/2012 06/30/2018 Dyslipidemia, goal to be determined 07/26/2003 03/07/2009 documented as of this encounter (statuses as of 03/04/2023) Immunizations Name Administration Dates Next Due Pneumococcal [...] encounter Miscellaneous Notes * Telephone Encounter - Elizabeth Leon LPN - 03/04/2023 9:41 AM EST Care Gaps Comprehensive Care Outreach Last Office/Telemedicine Visit: 07/08/2022 (in office), Visit date not found (telemedicine) Next Office Visit: 07/14/2023 Hemoglobin AIC Results: No results found for: "HEMOGLOBIN A1C" Reviewed Health Maintenance below: Health Maintenance Topic Date Due COVID-19 Vaccine (1) Never done Zoster Vaccines (1 of 2) Never done DXA Scan Never done Pneumococcal Vaccine: 65+ Years (2 - PPSV23 or PCV20) 07/07/2019 Depression Screening 06/26/2021 Influenza Vaccine (FLU shot) (1) Never done GFR 01/07/2023 Albumin/Creatinine Ratio 07/09/2023 CKD HGB USE SMARTSET 91805 07/09/2023 CKD PHOS USE SMARTSET 97024 07/09/2023 Dexa Labs/urine June lipid Care Gap Outreach Action Taken: Left message documented in this encounter Plan of Treatment Upcoming Encounters Date Type Department Care Team (Late st Contact Info) Description 07/14/2023 10:40 AM EDT Office Visit Family Practice [facility] [address] [place] [address] Mamta Moreno, [address] [place] [address] Health Maintenance Due Date Last Done Comments COVID-19 Vaccine (#1) 1945 Zoster Vaccines (1 of 2) 02/01/1996 DXA Scan 2011 Pneumococcal Vaccine: 65+ Years (2 - PPSV23 or PCV20) 07/07/2019 07/06/2018 Depression Screening 06/26/2021 06/26/2020 Influenza Vaccine (FLU shot) (#1) 2022 GFR 01/07/2023 07/08/2022, 04/0 08/2020, 09/22/2019, Additional history exists Albumin/Creatinine Ratio 07/09/2023 023, 12/17/2015, 12/14/2014, Additional history exists CKD HGB USE SMARTSET 16615 07/09/202307/08, 06/26/2020, 12/07/2018, Additional history exists CKD PHOS USE SMARTSET 09042 07/09/202306/21, 12/07/2018, 12/18/2016, Additional history exists DTaP,Tdap,and [...] Documents on File Type Date Recorded Patient College Recruiter Expl anation Advance Directives and Living Will 09/08/2017 ADVANCE DIRECTIVE / LIVING WILL Advance Directives and Living Will 09/08/2017 ADVANCE DIRECTIVE / LIVING WILL Power of Laundry Supervisor 09/08/2017 POWER OF A TTORNEY MEDICAL Power of Laundry Supervisor 09/08/2017 POWER OF A TTORNEY GENERAL Advance Directives and Living Will 12/30/2016 ADVANCE DIRECTIVE Power of Laundry Supervisor 12/30/2016 POWER OF A TTORNEY DURABLE GENERAL POA Power of Laundry Supervisor 12/30/2016 POWER OF A TTORNEY DURABLE MEDICAL POA Care Teams Programs Assistant Relationship Specialty Start Date End Date Mamta Moreno DO [address] [place] [address] PCP - General Family Medicine 04/13/19 documented as of this encounter
--- OUTSIDE RECORDS SUMMARY | 2023-03-12 00:18 | External Medical Summary | Summary of Care ---
Author Name Unknown Organization [facility] Address [address] [facility] [place] [address] Phone [phone] Care Team Providers Care Sludge Control Attendant Name Role Phone Mamta Moreno DO Primary Care Provider [phone] Reason for Visit * Reason Onset Date Comments Medication Refill 10/14/2022 Encounter Details Date Type Department Care Team Description 10/14/2022 Refill Family [facility] [address] [place] [address] Mamta Moreno DO [address] [place] [address] Allergies Active Allergy Reactions Severity Noted Date Comments Aspirin Low 09/15/2019 States gets sick to stomach when taking higher dose, is fine with low dose ASA Simvastatin 01/22/2016 myalgias documented as of this encounter (statuses as of 10/15/2022) Medications Medication Sig Dispensed Refills Start Date [...] for Anxiety. 90 Tablet 0 09/26/2022 Active Rosuvastatin Calcium 5 MG Oral Tablet (Crestor)Indication s:Dyslipidemia, goal LDL below 100 TAKE ONE TABLET BY MOUTH EVERY MORNING 90 Tablet 3 07/08/2022 07/08/2023 Active Lisinopril-hydroCHL OROthiazide 20-25 MG Oral TabletIndications:E ssential hypertension with goal blood pressure less than 140/90 TAKE ONE TABLET BY MOUTH EVERY MORNING 90 Tablet 3 07/08/2022 07/08/2023 Active documented as of this encounter (statuses as of 10/15/2022) Active Problems Problem Noted Date Chronic kidney [...] as of this encounter (statuses as of 10/15/2022) Resolved Problems Problem Noted Date Resolved Date Hypertensive kidney disease with chronic kidney disease stage III 06/26/2020 06/14/2021 Hypertensive kidney disease with chronic kidney disease stage III 06/24/2018 02/02/2020 Overview: Per CKD protocol Kidney disease, chronic, stage III (GFR 30-59 ml /min) 12/10/2012 06/30/2018 Dyslipidemia, goal to be determined 07/26/2003 03/07/2009 documented as of this encounter (statuses as of 10/15/2022) Immunizations Name Administration Dates Next Due Pneumococcal [...] encounter Miscellaneous Notes * Telephone Encounter - MILADYS Morris - 10/14/2022 1:32 PM EDT Pt calling to request LORazepam 0.5 MG Oral Tablet (Ativan*. Informed pt that RX is available at their pharmacy. Pt verbalized understanding and stated they will check with their pharmacy regardingthis medication. I called mail order - it will be deliver tomorrow Thank you for your assistance Cecelia Trinidad Emr Analyst II [facility]ized Clinical Pharmacy Services ([facility]PS) (Formerly Telepharmacy) 10/14/2022,1:33 PM documented in this encounter Plan of Treatment Upcoming Encounters Date Type Specialty Care Team Description 07/14/2023 Office Visit Family Medicine Mamta Moreno, DO [address] [place] [address] Health Maintenance Due Date Last Done Comments COVID-19 Vaccine (#1) 1945 Zoster Vaccines (1 of 2) 02/01/1996 DXA Scan 2011 Pneumococcal Vaccine: 65+ Years (2 - PPSV23 or PCV20) 07/07/2019 07/06/2018 Depression Screening, Annual for Pts 12 and Over 06/26/2021 06/26/2020 Influenza Vaccine (FLU shot) (#1) 2022 GFR 01/07/2023 07/08/2022, 04/0 08/2020, 09/22/2019, Additional history exists Albumin/Creatinine Ratio 07/09/2023 023, 12/17/2015, 12/14/2014, Additional history exists CKD HGB USE SMARTSET 69502 07/09/202307/08, 06/26/2020, 12/07/2018, Additional history exists CKD PHOS USE SMARTSET 06753 07/09/202306/21, 12/07/2018, 12/18/2016, Additional history exists DTaP,Tdap,and [...] Documents on File Type Date Recorded Patient Spool Hauler Expl anation Advance Directives and Living Will 09/08/2017 ADVANCE DIRECTIVE / LIVING WILL Advance Directives and Living Will 09/08/2017 ADVANCE DIRECTIVE / LIVING WILL Power of Senior Digital Designer 09/08/2017 POWER OF A TTORNEY MEDICAL Power of Senior Digital Designer 09/08/2017 POWER OF A TTORNEY GENERAL Advance Directives and Living Will 12/30/2016 ADVANCE DIRECTIVE Power of Senior Digital Designer 12/30/2016 POWER OF A TTORNEY DURABLE GENERAL POA Power of Senior Digital Designer 12/30/2016 POWER OF A TTORNEY DURABLE MEDICAL POA Care Teams Sludge Control Attendant Relationship Specialty Start Date End Date Mamta Moreno, DO [address] [place] [address] PCP - General Family Medicine 04/13/19 documented as of this encounter
--- OUTSIDE RECORDS SUMMARY | 2023-03-12 00:18 | External Medical Summary | Summary of Care ---
Author Name Unknown Organization [facility] Address [address] [facility] [place] [address] Phone [phone] Care Team Providers Care Pest Control Chemical Technician Name Role Phone Mamta Moreno DO Primary Care Provider [phone] Reason for Visit * Reason Onset Date Comments Med Request 10/17/2022 Encounter Details Date Type Department Care Team Description 10/17/2022 Telephone Family Practice [facility] [address] [place] [address] Mamta Moreno DO [address] [place] [address] Med Request Allergies Active Allergy Reactions Severity Noted Date Comments Aspirin Low 09/15/2019 States gets sick to stomach when taking higher dose, is fine with low dose ASA Simvastatin 01/22/2016 myalgias documented as of this encounter (statuses as of 10/17/2022) Medications Medication Sig Dispensed Refills Start Date [...] 02/19/2021 Active LORazepam 0.5 MG Oral Tablet (Ativan)Indication s:Adjustment disorder with anxious mood,Kidney disease, chronic, stage III (GFR 30-59 ml/min) ([facility]) Take 1 Tablet by mouth daily as needed for Anxiety. 90 Tablet 0 09/26/2022 Active Lisinopril-hydroCH LOROthiazide 20-25 MG Oral TabletIndications: Essential hypertension with goal blood pressure less than 140/90 Take 1 Tablet by mouth in the morning. TAKE ONE TABLET BY MOUTH EVERY MORNING. 100 Tablet 2 10/17/2022 Active Rosuvastatin Calcium 5 MG Oral Tablet (Crestor)Indicatio ns:Dyslipidemia, goal LDL below 100 Take 1 Tablet by mouth in the morning. TAKE ONE TABLET BY MOUTH EVERY MORNING. 100 Tablet 2 10/17/2022 Active Rosuvastatin Calcium 5 MG Oral Tablet (Crestor)Indicatio ns:Dyslipidemia, goal LDL below 100 TAKE ONE TABLET BY MOUTH EVERY MORNING 90 Tablet 3 07/08/2022 3 Discontinue d(Refill) Lisinopril-hydroCH LOROthiazide 20-25 MG Oral TabletIndications: Essential hypertension with goal blood pressure less than 140/90 TAKE ONE TABLET BY MOUTH EVERY MORNING 90 Tablet 3 07/08/2022 3 Discontinue d(Refill) documented as of this encounter (statuses as of 10/17/2022) Active Problems Problem Noted Date Chronic kidney [...] as of this encounter (statuses as of 10/17/2022) Resolved Problems Problem Noted Date Resolved Date Hypertensive kidney disease with chronic kidney disease stage III 06/26/2020 06/14/2021 Hypertensive kidney disease with chronic kidney disease stage III 06/24/2018 02/02/2020 Overview: Per CKD protocol Kidney disease, chronic, stage III (GFR 30-59 ml /min) 12/10/2012 06/30/2018 Dyslipidemia, goal to be determined 07/26/2003 03/07/2009 documented as of this encounter (statuses as of 10/17/2022) Immunizations Name Administration Dates Next Due Pneumococcal [...] encounter Miscellaneous Notes * Telephone Encounter - Zora Calixto, weld fitter - 10/17/2022 1:04 PM EDT Class: Normal Not received by [employer] [place]- requesting resend high priority. Please resend Rx to [facility]. Confirmed pharmacy did not receive original prescription. Pending Prescriptions: Disp Refills Lisinopril-hydroCHLOROthiazide 20-25 MG O*90 Tab*3 Sig: Take 1 Tablet by mouth in the morning. TAKE ONE TABLET BY MOUTH EVERY MORNING. Rosuvastatin Calcium 5 MG Oral Tablet (Cr*90 Tab*3 Sig: Take 1 Tablet by mouth in the morning. TAKE ONE TABLET BY MOUTH EVERY MORNING. Last Visit: 07/08/2022 (in office), Visit date not found (telemedicine) 07/14/2023 If no future appointments scheduled, and last appointment is greater than a year ago, please schedule patient for a follow-up appointment Last date the medication was ordered: 07/08/2022 Patient Phone Numbers Labs: Lab Results Component [...] Mamta Moreno, DO [address] [place] [address] Health Maintenance Due Date Last Done Comments COVID-19 Vaccine (#1) 1945 Zoster Vaccines (1 of 2) 02/01/1996 DXA Scan 2011 Pneumococcal Vaccine: 65+ Years (2 - PPSV23 or PCV20) 07/07/2019 07/06/2018 Depression Screening, Annual for Pts 12 and Over 06/26/2021 06/26/2020 Influenza Vaccine (FLU shot) (#1) 2022 GFR 01/07/2023 07/08/2022, 04/0 08/2020, 09/22/2019, Additional history exists Albumin/Creatinine Ratio 07/09/2023 04/ 023, 12/17/2015, 12/14/2014, Additional history exists CKD HGB USE SMARTSET 06796 07/09/202307/08, 06/26/2020, 12/07/2018, Additional history exists CKD PHOS USE SMARTSET 39155 07/09/202306/21, 12/07/2018, 12/18/2016, Additional history exists DTaP,Tdap,and [...] as of this encounter Visit Diagnoses Diagnosis Essential hypertension with goal blood pressure less than 140/90 Dyslipidemia, goal LDL below 100 Other and unspecified hyperlipidemia documented in this encounter Advance Directives Documents on File Type Date Recorded Patient Line Technician Expl anation Advance Directives and Living Will 09/08/2017 ADVANCE DIRECTIVE / LIVING WILL Advance Directives and Living Will 09/08/2017 ADVANCE DIRECTIVE / LIVING WILL Power of Jewelry Setter 09/08/2017 POWER OF A TTORNEY MEDICAL Power of Jewelry Setter 09/08/2017 POWER OF A TTORNEY GENERAL Advance Directives and Living Will 12/30/2016 ADVANCE DIRECTIVE Power of Jewelry Setter 12/30/2016 POWER OF A TTORNEY DURABLE GENERAL POA Power of Jewelry Setter 12/30/2016 POWER OF A TTORNEY DURABLE MEDICAL POA Care Teams Pest Control Chemical Technician Relationship Specialty Start Date End Date Mamta Moreno, DO [address] [place] [address] PCP - General Family Medicine 04/13/19 documented as of this encounter
--- OUTSIDE RECORDS SUMMARY | 2023-03-12 00:18 | External Medical Summary | Summary of Care ---
Author Name Unknown Organization [facility] Address [address] [place] [address] Phone [phone] Care Team Providers Care Apparatus Lineman Name Role Phone Prem Boyce DO Primary Care Provider [phone] Reason for Visit * Reason Onset Date Comments Medication Refill 09/25/2022 Encounter Details Date Type Department Care Team Description 09/25/2022 Refill Family [facility] [address] [place] [address] Prem Boyce DO [address] [place] [address] Adjustment disorder with anxious mood; Kidney disease, chronic, stage III (GFR 30-59 ml/min) ([facility]) Allergies Active Allergy Reactions Severity Noted Date Comments Aspirin Low 09/15/2019 States gets sick to stomach when taking higher dose, is fine with low dose ASA Simvastatin 01/22/2016 myalgias documented as of this encounter (statuses as of 09/26/2022) Medications Medication Sig Dispensed Refills Start Date [...] NEEDED SWELLING 45 Tablet 1 02/19/2021 Active Rosuvastatin Calcium 5 MG Oral Tablet (Crestor)Indicatio ns:Dyslipidemia, goal LDL below 100 Take 1 Tablet by mouth in the morning. 90 Tablet 3 07/08/2022 Active Lisinopril-hydroCH LOROthiazide 20-25 MG Oral TabletIndications: Essential hypertension with goal blood pressure less than 140/90 Take 1 Tablet by mouth in the morning. 90 Tablet 3 07/08/2022 Active LORazepam 0.5 MG Oral Tablet (Ativan)Indication s:Adjustment disorder with anxious mood,Kidney disease, chronic, stage III (GFR 30-59 ml/min) ([facility]) Take 1 Tablet by mouth daily as needed for Anxiety. 90 day supply. 90 Tablet 0 09/26/2022 Active LORazepam 0.5 MG Oral Tablet (Ativan)Indication s:Adjustment disorder with anxious mood,Kidney disease, chronic, stage III (GFR 30-59 ml/min) (HCC) Take 1 Tablet by mouth daily as needed for Anxiety. 90 day supply. 90 Tablet 0 07/14/2022 3 Discontinue d(Refill) documented as of this encounter (statuses as of 09/26/2022) Active Problems Problem Noted Date Chronic kidney [...] as of this encounter (statuses as of 09/26/2022) Resolved Problems Problem Noted Date Resolved Date Hypertensive kidney disease with chronic kidney disease stage III 06/26/2020 06/14/2021 Hypertensive kidney disease with chronic kidney disease stage III 06/24/2018 02/02/2020 Overview: Per CKD protocol Kidney disease, chronic, stage III (GFR 30-59 ml /min) 12/10/2012 06/30/2018 Dyslipidemia, goal to be determined 07/26/2003 03/07/2009 documented as of this encounter (statuses as of 09/26/2022) Immunizations Name Administration Dates Next Due Pneumococcal [...] encounter Miscellaneous Notes * Telephone Encounter - Prem Boyce DO - 09/26/2022 4:31 PM EDTSigned Prescriptions: Disp Refills LORazepam 0.5 MG Oral Tablet (Ativan) 90 Tab*0 Sig: Take 1 Tablet by mouth daily as needed for Anxiety. 90 day supply.Authorizing Provider: PREM BOYCE------- * Telephone Encounter - Pebbles Vogt [facility] - 09/26/2022 10:36 AM EDTPending Prescriptions: Disp Refills LORazepam 0.5 MG Oral Tablet (Ativan) 90 Tab*0 Sig: Take 1 Tablet by mouth daily as needed for Anxiety. 90 day supply. * Telephone Encounter - Pebbles Vogt [facility] - 09/26/2022 10:36 AM EDT I have reviewed the patients controlled substance dispensing history in the Prescription Drug Monitoring Program in compliance with the [facility] regulations before prescribing a controlled substance. PDMP checked on 09/26/2022. Pending Prescriptions: Disp Refills LORazepam 0.5 MG Oral Tablet (Ativan) 90 Tab*0 Sig: Take 1 Tablet by mouth daily as needed for Anxiety. 90 day supply. Last Visit: 07/08/2022 (in office), Visit date not found (telemedicine) Next Visit: 07/14/2023 Date medication was last filled: 07/18/22 Date medication is due for refill: 08/16/22 Pharmacy: [facility] Is this request for a controlled substance? Yes and Urine Drug Screen Not completed Toxicology results: No results found for this or any previous visit. Please approve if appropriate. Thanks, Pebbles Vogt Clinical Pharmacist [facility] ([facility]) (Formerly Telepharmacy) [phone] 09/26/2022, 10:36 AM * Telephone Encounter - Tali Garcia [facility] - 09/25/2022 1:27 PM EDT Did you pend patient's preferred pharmacy and medication before forwarding?yes Pharmacy: [facility] Pending Prescriptions: Disp Refills LORazepam 0.5 MG Oral Tablet (Ativan) 90 Tab*0 Sig: Take 1 Tablet by mouth daily as needed for Anxiety. 90 day supply. Last Visit: 07/08/2022 (in office), Visit date not found (telemedicine) Next Visit: 07/14/2023 If no future appointments scheduled, and last appointment is greater than a year ago, please schedule patient for a follow-up appointment Last date the medication was ordered: Is this request for a controlled substance?Yes, What was the last refill date w/ quantity 90 and dosage 0.5mg and [...] Team Description 07/14/2023 Office Visit Family Medicine Prem Boyce, DO [address] [place] [address] Health Maintenance Due Date Last Done Comments COVID-19 Vaccine (#1) 1945 Zoster Vaccines (1 of 2) 02/01/1996 DXA Scan 2011 Pneumococcal Vaccine: 65+ Years (2 - PPSV23 if available, else PCV20) 07/07/2019 07/06/2018 Depression Screening, Annual for Pts 12 and Over 06/26/2021 06/26/2020 Influenza Vaccine (FLU shot) (#1) 2022 GFR 01/07/2023 07/08/2022, 04/0 08/2020, 09/22/2019, Additional history exists Albumin/Creatinine Ratio 07/09/2023 023, 12/17/2015, 12/14/2014, Additional history exists CKD HGB USE SMARTSET 93353 07/09/202307/08, 06/26/2020, 12/07/2018, Additional history exists CKD PHOS USE SMARTSET 15803 07/09/202306/21, 12/07/2018, 12/18/2016, Additional history exists DTaP,Tdap,and [...] Documents on File Type Date Recorded Patient General Intern Expl anation Advance Directives and Living Will 09/08/2017 ADVANCE DIRECTIVE / LIVING WILL Advance Directives and Living Will 09/08/2017 ADVANCE DIRECTIVE / LIVING WILL Power of Utility Lineman 09/08/2017 POWER OF A TTORNEY MEDICAL Power of Utility Lineman 09/08/2017 POWER OF A TTORNEY GENERAL Advance Directives and Living Will 12/30/2016 ADVANCE DIRECTIVE Power of Utility Lineman 12/30/2016 POWER OF A TTORNEY DURABLE GENERAL POA Power of Utility Lineman 12/30/2016 POWER OF A TTORNEY DURABLE MEDICAL POA Care Teams Apparatus Lineman Relationship Specialty Start Date End Date Prem Boyce, DO [address] [place] [address] PCP - General Family Medicine 04/13/19 documented as of this encounter
[2023-03-12] MEDS: oxyCODONE HCL IR 5 MG TAB (IMMEDIATE RELEASE) PO PRN ×4 (02:28→20:05)
[2023-03-12] MEDS: ACETAMINOPHEN 325 MG TAB PO SCH ×3 (06:06→17:41)
--- NOTE | 2023-03-12 07:33 | XRay Report ---
XR hip RT 2V w pelvis CLINICAL HISTORY: pain, fall COMPARISON STUDY: Pelvis and right hip 09/15/2019. FINDINGS: There is a right total hip arthroplasty. The hardware is intact. No fracture or dislocation within the pelvis or hips. No abnormal periprosthetic lucency. Soft tissues are unremarkable. IMPRESSION: No fracture or dislocation within the pelvis or hips. ACT 112: Negative or not required by law. Electronically signed by: Baltazar Mendez M.D. 03/12/2023 7:30 AM
--- NOTE | 2023-03-12 07:35 | Orthopedic Consultation ---
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 This is certainly some that is best and then require surgical management. We need to determine whether this enters into the tibial plateau to determine treatment plan. Most likely this is a Demby plate fixation due to the proximal nature and comminuted nature of the fracture. Alternatives include IM nailing but I think it is a bit too proximal to get good fixation especially in her osteoporotic bone. Plan: Will get a get a CT scan of her right knee and proximal tibia to better assess the fracture. Plan on fixing this likely tomorrow. I will need to make sure we have the appropriate implants to do this. In the meantime continue DVT prophylaxis. She should have thigh-high teds SCDs. Pain control as needed. Medical management as needed. Any orthopedic questions can be recommended [phone] ......... History of Present Illness Reason for Consultation: . Right leg injury. Requesting Physician: . Attending Physician: Lauri Calero MD . Patient is a 78-year-old female whose has been a patient of mine for joint replacement who presents now with a right leg injury. She was on some type of stepladder or a stool and fell yesterday while trying to clean her comfort. She landed and injured her right leg. Acute onset of pain. Brought to emergency room where x-rays revealed a proximal tibia fracture. She has been admitted by the medicine service. Denies any other injuries. She denies any knee pain prior to this. She does have a history of hip replacement done by Dr. Tian back in 2004. Allergies Allergy/AdvReac Type Severity Reaction Status Date / Time aspirin AdvReac Unknown Nausea Verified 01/20/20 13:11 Home Medications Medication Instructions Recorded Confirmed Type aspirin 81 mg tablet,delayed 81 mg PO QAM 01/31/18 03/11/23 History release lisinopril 20 1 tab PO DAILY 01/31/18 03/11/23 History mg-hydrochlorothiazide 25 mg tablet lorazepam 0.5 mg tablet 0.5 mg PO TID PRN Anxiety 01/31/18 03/11/23 History rosuvastatin 5 mg tablet 5 mg PO DAILY 09/15/19 03/11/23 History clotrimazole-betamethasone 1 1 applic topical .APPLY SPARINGLY 01/18/20 03/11/23 History %-0.05 % topical cream TO AFFECTED AREA(S) 3 TIMES A DAY for 7-10 days as needed PRN Other magnesium 1 tab PO DAILY 03/11/23 03/11/23 History Past Med/Surg History Medical History Obesity High cholesterol HTN (hypertension) Surgical History History of hip surgery Hx of tubal ligation Family History Other No pertinent family history Denies family history of Ovarian cancer Breast cancer Colorectal cancer Social History Smoking Status: Never smoker Second Hand Exposure: No; Do You Dip or Chew Tobacco: No; Tobacco Cessation Education Requested by Patient: No Hx Alcohol Use: No Hx Substance Use: No Preferred Language: Belarusian Communication Ability: Effective Visual Impairment: No Limitations Hearing Ability: Normal 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 Physical Exam . Physical examination was a pleasant elderly female. As she looks to be in pretty good health and lying comfortably in bed. Examination of the right leg reveals the knee immobilizer in place. With the knee immobilizer removed she is got slight valgus alignment to her leg and knee. The large soft tissue envelope. Her compartments are soft. She can dorsiflex and plantarflex her foot with some fairly mild pain. She is neurologically intact. Results & Data Results & Data Laboratory Results . Diagnostic Findings . X-rays of the right knee, femur, hip, tib-fib, and ankle were reviewed. It shows a proximal tibial metaphyseal fracture with significant displacement. There is some slight comminution. It is questionable whether extends up to the joint as she does look like she may have a lateral tibial plateau fracture component as well. She got a comminuted fibula fracture. Diffuse osteopenia. Her right hip shows the total hip replacement in place. No signs of problems. No signs of fracture or dislocation. PG Care Time/CCT Total # of Minutes Spent Total Time Spent with Patient: Total time spent is greater than 50% in coordination of care (as documented) at patient's floor/unit and/or counseling patient: Coding Level of Care Code 65933 IN/OBS CONSULT LVL 5,80M Diagnoses Closed fracture of right tibia and fibula, initial encounter S82.201A; S82.401A Encounter type: initial encounter Fracture type: closed (1) Fracture of right tibia and fibula Encounter type: initial encounter Fracture type: closed Qualified Code(s): S82.201A - Unspecified fracture of shaft of right tibia, initial encounter for closed fracture; S82.401A - Unspecified fracture of shaft of right fibula, initial encounter for closed fracture
[2023-03-12 08:30] LABS: Basophils % (auto) 0.1 %; Eosinophils % (auto) 0.3 %; Hematocrit (blood only) 31.7 % (37.0-47.0); Hemoglobin 10.8 g/dl (12.0-16.0); Immature Granulocytes % (auto) 0.1 %; Lymphocytes % (auto) 9.2 %; Mean Corpuscular Hemoglobin 33.5 pg (25.0-34.0); Mean Corpuscular Hgb Conc 34.1 g/dL (32.0-36.0); Mean Corpuscular Volume 98.4 fL (80.0-100.0); Mean Platelet Volume 10.3 fL (9.4-12.4); Monocytes % (auto) 9.9 %; Neutrophils # (auto) 6.11 K/uL (1.40-6.50); Neutrophils % (auto) 80.4 %; Platelet Count 159 K/uL (130-400); RDW Coefficient of Variation 12.9 % (11.5-14.5); RDW Standard Deviation 46.4 fL (36.4-46.3); Red Blood Count 3.22 M/uL (4.20-5.40)
[2023-03-12 08:31] LABS: Basophils # (auto) 0.01 K/uL (0.00-0.20); Eosinophils # (auto) 0.02 K/uL (0.00-0.50); Immature Granulocytes # (auto) 0.01 K/uL (0.01-0.20); Monocytes # (auto) 0.75 K/uL (0.11-0.59)
--- NOTE | 2023-03-12 08:43 | CT Scan Report ---
RIGHT KNEE CT CT DOSE: 676.57 mGy.cm HISTORY: Right proximal tibia fx. Assess joint TECHNIQUE: Multiaxial CT images of the right knee were performed and reformatted in the sagittal and coronal plane without the use of contrast. A dose lowering technique was utilized adhering to the pr inciples of JOHANN. COMPARISON: Right knee radiograph 03/11/2023. FINDINGS: No fracture or dislocation within the distal right femur or patella. A small lipohemarthros is. Subcutaneous hemorrhage noted within the proximal anteromedial lower leg. This is most pronounced on axial image 294 which demonstrates a 5.1 x 2.8 cm subcutaneous hematoma. There is a small of hemo rrhage surrounding the proximal tibial and fibular fractures. Comminuted and mildly displaced fractur es involving the head and proximal shaft of the fibula. There is associated medial angulation of the proximal fibular fractures. Comminuted and displaced fractures involving the proximal tibia. These ex tend to the articular surfaces of the medial and lateral tibial plateaus. The medial tibial plateau f racture is nondisplaced. The lateral tibial plateau fracture demonstrates up to 3 mm of depression la terally. The proximal tibial shaft fractures demonstrate mild anteromedial angulation and up to 12 mm of medial displacement. IMPRESSION: 1. Comminuted and displaced fractures involving the proximal tibia and fibula. The proximal tibial fr actures involve the articular surfaces of the medial and lateral tibial plateaus as described above. 2. Small lipohemarthrosis within the right knee. 3. Subcutaneous hemorrhage within the proximal right lower leg including a 5.1 x 2.8 cm anteromedial subcutaneous hematoma. ACT 112: Negative or not required by law. Electronically signed by: Baltazar Mendez M.D. 03/12/2023 8:40 AM
[2023-03-12 08:47] LABS: Albumin Globulin Ratio 1.6 (0.9-2); Albumin Level 3.6 gm/dl (3.4-5.0); BUN Creatinine Ratio 22.3 (10-20); Bilirubin,Total 0.9 mg/dl (0.2-1.0); Calcium 8.3 mg/dl (8.6-10.3); Creatinine Clr Calc Pharmacy 48.8 ml/min; Est GFR (African American) 54.9 ml/min; Est GFR (Non-African American) 47.3 ml/min; Globulin 2.3 gm/dl (2.5-4.0); Magnesium 1.6 mg/dl (1.7-2.4); Potassium 4.2 mmol/L (3.5-5.1); Total Protein 5.9 gm/dl (6.0-8.3)
[2023-03-12] MEDS: ROSUVASTATIN CALCIUM 5 MG TAB PO SCH (09:02)
[2023-03-12] MEDS: lisinopril 20 MG TAB PO SCH (09:02)
[2023-03-12] MEDS: MAGNESIUM OXIDE 400 MG TAB PO SCH (09:02)
[2023-03-12] MEDS: ASPIRIN 81 MG ECTAB PO SCH (09:02)
--- NOTE | 2023-03-12 13:28 | Hospitalist Progress Note ---
Date of Service March 12, 2023 Assessment & Plan (1) Fracture of right tibia and fibula: (2) Fall: (3) HTN (hypertension): (4) High cholesterol: (5) Obesity: Plan This is a 78-year-old female with significant past medical history of HTN, HLD, CKD stage III, morbid obesity and anxiety who presents to ED secondary to right ankle pain. She was getting on a stepladder trying to clean her kitchen cupboards whenever she fell off and landed on her right leg. XR: Comminuted, displaced fractures of the proximal fibular metaphysis and tibial metadiaphysis Fall from step ladder Right Tibial and fibula fracture, closed, comminuted, displaced Patient presented after a fall. Tibia/fibula x-ray shows comminuted, displaced fractures of the proximal fibular metaphysis and tibial metadiaphysis. Other imagings including CT head, lumbar spine, hip and pelvic x-ray do not show any acute findings. Knee CT shows comminuted and displaced fractures involving proximal tibia and fibula. Also, proximal tibial fractures involve the articular surfaces of the medial and lateral tibial plateaus Patient seen by orthopedics; plan for or tomorrow. N.p.o. from midnight. Pain control on current medication. DVT prophylaxis ordered for today. HTN On lisinopril and hydrochlorothiazide. Will hold it for now. HLD chronic stable continue statin CKD 3a baseline cr 1.3-1.4 At baseline Avoid nephrotoxic agent Morbid obesity, BMI 36 encourage diet lifestyle mod when able FULL CODE DVT ppx: On heparin PCP:Dr. Moreno Dispo: Patient admitted to medical floor after Tibial and fibula fracture. Plan for OR tomorrow. Please note the above document was generated using voice recognition software. It may contain grammatical, syntax or spelling errors. Any formal questions or concerns about the content, text or information contained within the body of this dictation should be directly addressed to the provider for clarification Admission and Anticipated Discharge Date Admission Date: March 11, 2023 Subjective Patient seen and examined at bedside. She is comfortably sitting up on the bed; not in distress. She denies fever, chills, chest pain or shortness of breath. Review of Systems Review of Systems: All systems reviewed & are unremarkable except as noted in Subjective Physical Exam Physical Exam: Constitutional: Alert oriented x 3; not in distress. Respiratory: Bilateral basilar breath sound Cardiovascular: RRR, no murmur, no edema, obese lower ext Vessels: no JVD or carotid bruit Abdomen: Soft nontender. Musculoskeletal: no cyanosis or clubbing, RLE NVI, pain to tibial plat,R foot inverted Skin: no rashes, warm and dry normal turgor Neurologic: PERRL, EOMI, accommodation nl, no face palsy, no dysarthria CN's II-XI intact bilaterally and moves all extremities Psychiatric: A+Ox3, euthymic affect Results & Data Results & Data Vital Signs (Past 12 Hours) Vital Signs Temp Pulse Resp BP Pulse Ox O2 Del Method 03/12/23 08:10 36.6 C 86 16 143/77 H 98 Room Air (1) Fracture of right tibia and fibula Encounter type: initial encounter Fracture type: closed Qualified Code(s): S82.201A - Unspecified fracture of shaft of right tibia, initial encounter for closed fracture; S82.401A - Unspecified fracture of shaft of right fibula, initial encounter for closed fracture (2) Fall Encounter type: initial encounter Qualified Code(s): W19.XXXA - Unspecified fall, initial encounter (3) HTN (hypertension) Hypertension type: primary hypertension Qualified Code(s): I10 - Essential (primary) hypertension (5) Obesity Obesity type: due to excess calories Obesity classification: adult class 2 (BMI 35 - 39.9) Serious obesity comorbidity presence: with serious comorbidity Body mass index: BMI 35.0-35.9 Qualified Code(s): E66.01 - Morbid (severe) obesity due to excess calories; Z68.35 - Body mass index [BMI] 35.0-35.9, adult
[2023-03-12] MEDS: HEPARIN SOD 5,000 UNIT/0.5 ML VIAL SQ SCH ×2 (14:59→20:05)
[2023-03-12] MEDS: DOCUSATE SODIUM/SENNA 50/8.6MG TAB PO SCH (20:05)
[2023-03-13] MEDS: ACETAMINOPHEN 325 MG TAB PO SCH ×3 (00:20→18:46)
[2023-03-13] MEDS: oxyCODONE HCL IR 5 MG TAB (IMMEDIATE RELEASE) PO PRN ×2 (04:29→09:15)
--- NOTE | 2023-03-13 07:09 | Surgery Progress Note ---
Date of Service March 13, 2023 Assessment & Plan (1) Fracture of right tibia and fibula: Plan: 78-year-old female with a displaced right tibial plateau fracture with significant metaphyseal comminution. Plan is to affix this today. She is neurologically intact. No other injuries. Plan: Orgran taken to the operating to open reduction internal fixation of this right tibial plateau fracture. But continue DVT prophylaxis. She will likely need rehab placement postoperatively. She is can be nonweightbearing for the first 6 weeks. Plan to proceed with this today. Informed consent was obtained. Admission and Anticipated Discharge Date Admission Date: March 11, 2023 Subjective 78-year-old female admitted with a right proximal tibia metaphyseal fracture and including the tibial plateau with significant displacement. She denies any other injuries. She is pretty comfortable this morning lying in bed as long she does not move. No new complaints. No chest pain shortness of breath. Ready to get her leg fixed. Physical Exam Physical Exam: Physical examination was a pleasant elderly female patient lying in bed looks reasonably comfortable. Examination of the right leg reveals a large soft tissue envelope. Her compartments are soft. She can dorsiflex and plantarflex her foot appropriately. She is neurologically intact. Results & Data Vital Signs (Past 12 Hours) Vital Signs Temp Pulse Resp BP Pulse Ox O2 Del Method 03/12/23 19:36 36.7 C 75 16 128/79 94 Room Air Diagnostic Findings CT scan was reviewed. It does show a displaced proximal tibial comminuted metaphyseal fracture with fracture extension into the tibial plateau. Tibial plateau fracture portions of minimally displaced. The metaphyseal fracture significantly displaced. PG Care Time/CCT Total # of Minutes Spent Total Time Spent with Patient: Total time spent is greater than 50% in coordination of care (as documented) at patient's floor/unit and/or counseling patient: Coding Level of Care Code None Diagnoses Closed fracture of right tibia and fibula, initial encounter S82.201A; S82.401A Encounter type: initial encounter Fracture type: closed (1) Fracture of right tibia and fibula Encounter type: initial encounter Fracture type: closed Qualified Code(s): S82.201A - Unspecified fracture of shaft of right tibia, initial encounter for closed fracture; S82.401A - Unspecified fracture of shaft of right fibula, initial encounter for closed fracture
[2023-03-13] MEDS ORDERED: LACTATED RINGER'S 1,000 ML IV SCH (08:15)
[2023-03-13] MEDS: MAGNESIUM OXIDE 400 MG TAB PO SCH (09:18)
[2023-03-13] MEDS: ROSUVASTATIN CALCIUM 5 MG TAB PO SCH (09:18)
[2023-03-13] MEDS: ASPIRIN 81 MG ECTAB PO SCH (09:18)
[2023-03-13] MEDS ORDERED: ROPIVACAINE 0.5% 5 MG/ML 30 ML VIAL ONE (10:08)
--- NOTE | 2023-03-13 10:18 | Anesthesiology Consultation ---
Date of Service March 13, 2023 Assessment & Plan Chart Review Chart Review: administrative assistant data entry initiated History Surgery Operation Date: 03/13/23 12:00 Proposed Procedures p Right Tibia Fracture Open Reduction Internal Fixation - Jorge Isaac MD Height/Weight Height: 5 ft 5 in Weight: 98.3 kg Allergies Allergy/AdvReac Type Severity Reaction Status Date / Time aspirin AdvReac Unknown Nausea Verified 01/20/20 13:11 Medications Home Medications Medication Instructions Recorded Confirmed Last Taken aspirin 81 mg tablet,delayed 81 mg PO QAM 01/31/18 03/11/23 01/31/18 release lisinopril 20 1 tab PO DAILY 01/31/18 03/11/23 01/31/18 mg-hydrochlorothiazide 25 mg tablet lorazepam 0.5 mg tablet 0.5 mg PO TID PRN Anxiety 01/31/18 03/11/23 01/30/18 rosuvastatin 5 mg tablet 5 mg PO DAILY 09/15/19 03/11/23 Unknown clotrimazole-betamethasone 1 1 applic topical .APPLY SPARINGLY 01/18/20 03/11/23 Unknown %-0.05 % topical cream TO AFFECTED AREA(S) 3 TIMES A DAY for 7-10 days as needed PRN Other magnesium 1 tab PO DAILY 03/11/23 03/11/23 Unknown Active Medications Generic Name Dose Route Start Last Admin Trade Name Michaelq PRN Reason Stop Dose Admin Acetaminophen 650 mg 03/12/23 00:00 03/13/23 05:11 Acetaminophen 325 Mg Tab PO 04/11/23 00:00 650 mg Q6H MORRIS Administration Aspirin 81 mg 03/12/23 09:00 03/13/23 09:18 Aspirin 81 Mg Ectab PO 04/11/23 08:59 81 mg QAM MORRIS Administration Lactated Ringer's 1,000 mls @ 80 mls/hr 03/13/23 08:15 03/13/23 09:23 Lr IV 04/12/23 08:14 80 mls/hr .[id number] MORRIS Administration Lisinopril 20 mg 03/12/23 09:00 03/12/23 09:02 Lisinopril 20 Mg Tab PO 04/11/23 08:59 20 mg QAM MORRIS Administration Magnesium Oxide 400 mg 03/12/23 09:00 03/13/23 09:18 Magnesium Oxide 400 Mg Tab PO 04/11/23 08:59 400 mg DAILY MORRIS Administration Oxycodone HCl 5 mg 03/11/23 21:34 03/13/23 09:15 Oxycodone Hcl Ir 5 Mg Tab (Immediate Release) PO 03/25/23 21:33 5 mg Q4H PRN Administration MODERATE Pain (4,5,6) & Pre PT Rosuvastatin Calcium 5 mg 03/12/23 09:00 03/13/23 09:18 Rosuvastatin Calcium 5 Mg Tab PO 04/11/23 08:59 5 mg DAILY MORRIS Administration Senna/Docusate Sodium 2 tab 03/11/23 21:34 03/12/23 20:05 Docusate Sodium/Senna 50/8.6mg Tab PO 04/10/23 21:33 2 tab HS MORRIS Administration NPO Date Last Intake of Fluids: 03/12/23 Time Last Intake of Fluids: 06:06 Last Intake of Fluids Comment: sips of water with pills Date Last Intake of Solids: 03/11/23 Last Intake of Solids Comment: prior to arrival to floor at 2039 Past Medical History Medical History Obesity High cholesterol HTN (hypertension) Past Family History Family History Other No pertinent family history Denies family history of Ovarian cancer Breast cancer Colorectal cancer Past Surgical History Surgical History History of hip surgery Hx of tubal ligation Social History Smoking Status: Never smoker Do You Dip or Chew Tobacco: No Hx Alcohol Use: No Hx Substance Use: No substance use type: prescription drug Physical Exam Vital Signs Last Vital Signs Temp 97.9 F 03/13/23 07:11 Pulse 80 03/13/23 07:11 Resp 16 03/13/23 07:11 BP 118/74 03/13/23 07:11 Pulse Ox 93 03/13/23 07:11 O2 Del Method Room Air 03/13/23 07:11 Testing Laboratory Results 03/12/23 08:00 03/12/23 08:00 PT 10.7 Seconds (9.0-12.0) 03/11/23 20:08 INR 1.0 (0.9-1.1) 03/11/23 20:08 APTT 25 Seconds (21-31) 03/11/23 20:08 Blood Type A Positive 03/11/23 22:56 Antibody Screen NEGATIVE 03/11/23 22:56 Electrocardiogram Date: 03/11/23 Sinus tachycardia, rate 105 bpm Septal infarct , age undetermined Abnormal ECG When compared with ECG of 13-OCT-2019 19:15, Premature ventricular complexes are no longer Present Septal infarct is now Present Nonspecific T wave abnormality now evident in Anterior leads Chest X-Ray Date: 03/11/23 Findings: + NAD Echocardiogram Date: 11/29/19 LV is hyperdynamic RVSP is normal No significant valvular heart disease
[2023-03-13 10:34] LABS: Basophils # (auto) 0.03 K/uL (0.00-0.20); Basophils % (auto) 0.4 %; Eosinophils # (auto) 0.05 K/uL (0.00-0.50); Eosinophils % (auto) 0.6 %; Hematocrit (blood only) 29.8 % (37.0-47.0); Hemoglobin 10.3 g/dl (12.0-16.0); Immature Granulocytes # (auto) 0.02 K/uL (0.01-0.20); Immature Granulocytes % (auto) 0.3 %; Lymphocytes % (auto) 15.3 %; Mean Corpuscular Hemoglobin 33.4 pg (25.0-34.0); Mean Corpuscular Hgb Conc 34.6 g/dL (32.0-36.0); Mean Corpuscular Volume 96.8 fL (80.0-100.0); Mean Platelet Volume 10.8 fL (9.4-12.4); Monocytes # (auto) 0.89 K/uL (0.11-0.59); Monocytes % (auto) 11.4 %; Neutrophils # (auto) 5.63 K/uL (1.40-6.50); Platelet Count 144 K/uL (130-400); RDW Coefficient of Variation 12.7 % (11.5-14.5); RDW Standard Deviation 44.9 fL (36.4-46.3); Red Blood Count 3.08 M/uL (4.20-5.40); White Blood Count 7.82 K/ul (4.8-10.8)
[2023-03-13 10:48] LABS: BUN Creatinine Ratio 23.8 (10-20); Calcium 8.4 mg/dl (8.6-10.3); Creatinine Clr Calc Pharmacy 43.4 ml/min; Est GFR (African American) 47.6 ml/min; Est GFR (Non-African American) 41.1 ml/min; Magnesium 1.7 mg/dl (1.7-2.4); Potassium 4.5 mmol/L (3.5-5.1)
[2023-03-13] MEDS ORDERED: MIDAZOLAM HCL 1 MG/ML 2ML VIAL ONE (11:41)
[2023-03-13] MEDS ORDERED: fentaNYL citrate PF 100 MCG/2 ML VIAL ONE ×3 (11:41→14:54)
[2023-03-13] MEDS ORDERED: HYDROmorphone INJ 2 MG/ML SYR/VIAL IV PRN (11:43)
[2023-03-13] MEDS ORDERED: ATROPINE SULFATE 0.1 MG/ML 10ML SYR IV PRN (11:43)
[2023-03-13] MEDS ORDERED: ePHEDrine sulfate 50 MG/ML AMP IV PRN (11:43)
[2023-03-13] MEDS ORDERED: ONDANSETRON INJ 2 MG/ML 2 ML VIAL IV PRN ×2 (11:43→16:10)
[2023-03-13] MEDS ORDERED: fentaNYL citrate PF 100 MCG/2 ML VIAL IV PRN (11:43)
[2023-03-13] MEDS ORDERED: PROPOFOL IV EMULSION 10 MG/ML 20 ML VIAL IV ONE (11:44)
[2023-03-13] MEDS ORDERED: BUPIVACAINE/EPINEPHRINE 0.5% MPF 1:200,000 30 ML VIAL ONE (11:44)
[2023-03-13] MEDS ORDERED: ONDANSETRON INJ 2 MG/ML 2 ML VIAL ONE (11:44)
[2023-03-13] MEDS ORDERED: ceFAZolin 2000MG 2,000 MG/15 ML SYR IV ONE (12:27)
--- NOTE | 2023-03-13 14:01 | Hospitalist Progress Note ---
Date of Service March 13, 2023 Assessment & Plan (1) Fracture of right tibia and fibula: (2) Fall: (3) HTN (hypertension): (4) High cholesterol: (5) Obesity: Plan This is a 78-year-old female with significant past medical history of HTN, HLD, CKD stage III, morbid obesity and anxiety who presents to ED secondary to right ankle pain. She was getting on a stepladder trying to clean her kitchen cupboards whenever she fell off and landed on her right leg. XR: Comminuted, displaced fractures of the proximal fibular metaphysis and tibial metadiaphysis Fall from step ladder Right Tibial and fibula fracture, closed, comminuted, displaced Patient presented after a fall. Tibia/fibula x-ray shows comminuted, displaced fractures of the proximal fibular metaphysis and tibial metadiaphysis. Other imagings including CT head, lumbar spine, hip and pelvic x-ray do not show any acute findings. Knee CT shows comminuted and displaced fractures involving proximal tibia and fibula. Also, proximal tibial fractures involve the articular surfaces of the medial and lateral tibial plateaus Patient to undergo ORIF by orthopedics Pain control on current medication. DVT prophylaxis with heparin. Can consider aspirin twice daily as DVT prophyl axis as well at discharge. PT OT after surgery. Nonweightbearing for 4 to 6 weeks. Acute blood loss anemia Patient has hematoma in right lower leg of 5.1 into 2.8 cm. Hemoglobin down trended from 12.9 on admission to 10.3. Monitor closely. Transfuse if hemoglobin is less than 7 HTN On lisinopril and hydrochlorothiazide. Will hold it for now. HLD chronic stable continue statin CKD 3a baseline cr 1.3-1.4 At baseline Avoid nephrotoxic agent Morbid obesity, BMI 36 encourage diet lifestyle mod when able FULL CODE DVT ppx: On heparin PCP:Dr. Moreno Dispo: Patient admitted to medical floor after Tibial and fibula fracture. Undergoing surgery today. PT OT and placement in next few days.. Please note the above document was generated using voice recognition software. It may contain grammatical, syntax or spelling errors. Any formal questions or concerns about the content, text or information contained within the body of this dictation should be directly addressed to the provider for clarification Admission and Anticipated Discharge Date Admission Date: March 11, 2023 Subjective Patient seen and examined at bedside. She is lying on the bed comfortably; not in distress. Pain is well-controlled on current medication. Review of Systems Review of Systems: All systems reviewed & are unremarkable except as noted in Subjective Physical Exam Physical Exam: Constitutional: Alert oriented x 3; not in distress. Respiratory: Bilateral basilar breath sound Cardiovascular: RRR, no murmur, no edema, obese lower ext Vessels: no JVD or carotid bruit Abdomen: Soft nontender. Musculoskeletal: brace present on right leg. Skin: no rashes, warm and dry normal turgor Neurologic: PERRL, EOMI, accommodation nl, no face palsy, no dysarthria CN's II-XI intact bilaterally and moves all extremities Psychiatric: A+Ox3, euthymic affect Results & Data Results & Data Vital Signs (Past 12 Hours) Vital Signs Temp Pulse Resp BP Pulse Ox O2 Del Method 03/13/23 13:11 Room Air 03/13/23 11:18 36.9 C 84 20 157/66 H 95 Room Air 03/13/23 07:11 36.6 C 80 16 118/74 93 Room Air Laboratory Results Laboratory Results WBC 7.82 K/ul (4.8-10.8) 03/13/23 09:42 RBC 3.08 M/uL (4.20-5.40) L 03/13/23 09:42 Hgb 10.3 g/dl (12.0-16.0) L 03/13/23 09:42 Hct 29.8 % (37.0-47.0) L 03/13/23 09:42 MCV 96.8 fL (80.0-100.0) 03/13/23 09:42 MCH 33.4 pg (25.0-34.0) 03/13/23 09:42 MCHC 34.6 g/dL (32.0-36.0) 03/13/23 09:42 RDW Std Deviation 44.9 fL (36.4-46.3) 03/13/23 09:42 RDW Coeff of Gee 12.7 % (11.5-14.5) 03/13/23 09:42 Plt Count 144 K/uL (130-400) 03/13/23 09:42 MPV 10.8 fL (9.4-12.4) 03/13/23 09:42 Immature Gran % (Auto) 0.3 % 03/13/23 09:42 Neut % (Auto) 72.0 % 03/13/23 09:42 Lymph % (Auto) 15.3 % 03/13/23 09:42 [place] % (Auto) 11.4 % 03/13/23 09:42 Eos % (Auto) 0.6 % 03/13/23 09:42 Baso % (Auto) 0.4 % 03/13/23 09:42 Neut # (Auto) 5.63 K/uL (1.40-6.50) 03/13/23 09:42 Lymph # (Auto) 1.20 K/uL (1.20-3.40) 03/13/23 09:42 [place] # (Auto) 0.89 K/uL (0.11-0.59) H 03/13/23 09:42 Eos # (Auto) 0.05 K/uL (0.00-0.50) 03/13/23 09:42 Baso # (Auto) 0.03 K/uL (0.00-0.20) 03/13/23 09:42 Immature Gran # (Auto) 0.02 K/uL (0.01-0.20) 03/13/23 09:42 PT 10.7 Seconds (9.0-12.0) 03/11/23 20:08 INR 1.0 (0.9-1.1) 03/11/23 20:08 APTT 25 Seconds (21-31) 03/11/23 20:08 PTT Ratio 0.9 03/11/23 20:08 Sodium 131 mmol/L (136-145) L 03/13/23 09:42 Potassium 4.5 mmol/L (3.5-5.1) 03/13/23 09:42 Chloride 100 mmol/L (98-107) 03/13/23 09:42 Carbon Dioxide 24 mmol/L (21-32) 03/13/23 09:42 Anion Gap 7 (3-11) 03/13/23 09:42 BUN 30 mg/dl (6-23) H 03/13/23 09:42 Creatinine 1.26 mg/dl (0.6-1.2) H 03/13/23 09:42 Est Cr Clr Drug Dosing 43.4 ml/min 03/13/23 09:42 Est GFR ( Amer) 47.6 ml/min 03/13/23 09:42 Est GFR (Non-Af Amer) 41.1 ml/min 03/13/23 09:42 BUN/Creatinine Ratio 23.8 (10-20) H 03/13/23 09:42 Glucose 104 mg/dl (70-99(Fasting)) H 03/13/23 09:42 Calcium 8.4 mg/dl (8.6-10.3) L 03/13/23 09:42 Magnesium 1.7 mg/dl (1.7-2.4) 03/13/23 09:42 Total Bilirubin 0.9 mg/dl (0.2-1.0) 03/12/23 08:00 AST 19 U/L (13-39) 03/12/23 08:00 ALT 13 U/L (7-52) 03/12/23 08:00 Alkaline Phosphatase 41 U/L (34-104) 03/12/23 08:00 Total Protein 5.9 gm/dl (6.0-8.3) L 03/12/23 08:00 Albumin 3.6 gm/dl (3.4-5.0) 03/12/23 08:00 Globulin 2.3 gm/dl (2.5-4.0) L 03/12/23 08:00 Albumin/Globulin Ratio 1.6 (0.9-2) 03/12/23 08:00 Blood Type A Positive 03/11/23 22:56 Antibody Screen NEGATIVE 03/11/23 22:[address] 03/11/23 15:30 CT cervical spine wo con CLINICAL HISTORY: Trauma TECHNIQUE: Multidetector row helical CT of the cervical spine was performed without administration of intravenous contrast. Coronal and sagittal reformations were obtained. Automated dose lowering techniques and/or adjustment according to patient size were utilized for this exam. Comparison: Comparison is made to CT soft tissue neck 10/13/2019 FINDINGS: No acute fractures or subluxations are identified. Degenerative changes are seen in the visualized spine. The alignment is normal. Biapical scarring is seen in the lungs. IMPRESSION: Degenerative changes without evidence of acute bony injury. ACT 112: Negative or not required by law. Electronically signed by: John Wallis M.D. 03/11/2023 4:58 PM Elbow X-Ray 03/11/23 15:30 XR elbow RT min 3V routine CLINICAL HISTORY: Trauma. Fall. Right elbow pain. COMPARISON STUDY: None. FINDINGS: No fracture or dislocation within the right elbow. Soft tissues are unremarkable. No elbow effusion. No radiopaque foreign bodies. IMPRESSION: No fracture or dislocation within the right elbow. ACT 112: Negative or not required by law. Electronically signed by: Baltazar Mendez M.D. 03/11/2023 4:[address] 03/11/23 15:30 CT head/brain wo con CLINICAL HISTORY: Trauma Technique: Contiguous axial CT images of the head were acquired from the base of the skull to the vertex without intravenous contrast administration. Images were viewed in brain, subdural and bone windows. Automated dose lowering techniques and/or adjustment according to patient size were utilized for this exam. Comparison: None available at the time of this dictation. Findings: The ventricles, basal cisterns, and cerebral sulci are normal. There is no acute intracranial hemorrhage or evidence of acute territorial infarction. Neither mass effect, shift of the midline structures, nor abnormal extra-axial fluid collections are shown. ENCEPHALOMALACIA IN THE LEFT BASAL GANGLIA LIKELY CORRESPONDS TO A PRIOR LACUNAR INFARCT. Imaged portions of the paranasal sinuses and mastoid air cells are clear. The orbits appear normal. There are no acute fractures of the calvaria or scalp swelling. Impression: No acute intracranial hemorrhage, no evidence of acute territorial infarction or other acute intracranial disease process. ACT 112: Negative or not required by law. Electronically signed by: John Wallis M.D. 03/11/2023 4:52 PM Knee X-Ray 03/11/23 15:30 XR knee RT 3V, XR tibia fibula RT 2V, XR ankle RT min 3V routine CLINICAL HISTORY: Trauma TECHNIQUE: 2 views of the right knee were obtained. 2 views of the right tibia and fibula were obtained. 3 views of the ankle were obtained. Comparison: None available at the time of this dictation. FINDINGS: Comminuted, mildly displaced fractures of the proximal fibular metaphysis and tibial metadiaphysis. Degenerative changes are seen in the knee joint. No joint effusion is seen. Soft tissue swelling is seen throughout the lower extremity and in the ankle. IMPRESSION: Comminuted, displaced fractures of the proximal fibular metaphysis and tibial metadiaphysis. No definite articular involvement. ACT 112: Negative or not required by law. Electronically signed by: John Wallis M.D. 03/11/2023 4:[address] 03/11/23 15:30 CT lumbar spine wo con CLINICAL HISTORY: Trauma TECHNIQUE: Multidetector row helical CT of the lumbar spine was performed without administration of intravenous contrast. Coronal and sagittal reformations were obtained. Automated dose lowering techniques and/or adjustment according to patient size were utilized for this exam. Comparison: Comparison is made to lumbar spine radiographs 09/15/2019 FINDINGS: For counting purposes, the last complete intervertebral disc space is considered L5-S1. There is a anterior compression deformity of L1 which appears chronic. Rudimentary ribs are seen bilaterally at L1. Degenerative changes are noted in the visualized spine. Vertebral body alignment is within normal limits. Surrounding soft tissues are unremarkable. IMPRESSION: Degenerative changes without evidence of acute bony injury. ACT 112: Negative or not required by law. Electronically signed by: John Wallis M.D. 03/11/2023 5:07 PM Tibia/Fibula X-Ray 03/11/23 15:30 XR knee RT 3V, XR tibia fibula RT 2V, XR ankle RT min 3V routine CLINICAL HISTORY: Trauma TECHNIQUE: 2 views of the right knee were obtained. 2 views of the right tibia and fibula were obtained. 3 views of the ankle were obtained. Comparison: None available at the time of this dictation. FINDINGS: Comminuted, mildly displaced fractures of the proximal fibular metaphysis and tibial metadiaphysis. Degenerative changes are seen in the knee joint. No joint effusion is seen. Soft tissue swelling is seen throughout the lower extremity and in the ankle. IMPRESSION: Comminuted, displaced fractures of the proximal fibular metaphysis and tibial metadiaphysis. No definite articular involvement. ACT 112: Negative or not required by law. Electronically signed by: John Wallis M.D. 03/11/2023 4:49 PM Ankle X-Ray 03/11/23 16:08 XR knee RT 3V, XR tibia fibula RT 2V, XR ankle RT min 3V routine CLINICAL HISTORY: Trauma TECHNIQUE: 2 views of the right knee were obtained. 2 views of the right tibia and fibula were obtained. 3 views of the ankle were obtained. Comparison: None available at the time of this dictation. FINDINGS: Comminuted, mildly displaced fractures of the proximal fibular metaphysis and tibial metadiaphysis. Degenerative changes are seen in the knee joint. No joint effusion is seen. Soft tissue swelling is seen throughout the lower extremity and in the ankle. IMPRESSION: Comminuted, displaced fractures of the proximal fibular metaphysis and tibial metadiaphysis. No definite articular involvement. ACT 112: Negative or not required by law. Electronically signed by: John Wallis M.D. 03/11/2023 4:49 PM Chest X-Ray 03/11/23 17:03 XR chest 1V portable CLINICAL HISTORY: Pre-op TECHNIQUE: Single frontal radiograph of the chest was obtained. Comparison: Comparison is made to chest radiograph 10/13/2019 FINDINGS: No lines and tubes are seen. The cardiomediastinal silhouette is normal. The lungs are clear. No evidence of pleural effusion or pneumothorax. IMPRESSION: No acute chest disease. ACT 112: Negative or not required by law. Electronically signed by: John Wallis M.D. 03/11/2023 5:43 PM Hip/Pelvis X-Ray 03/11/23 17:51 XR hip RT 2V w pelvis CLINICAL HISTORY: pain, fall COMPARISON STUDY: Pelvis and right hip 09/15/2019. FINDINGS: There is a right total hip arthroplasty. The hardware is intact. No fracture or dislocation within the pelvis or hips. No abnormal periprosthetic lucency. Soft tissues are unremarkable. IMPRESSION: No fracture or dislocation within the pelvis or hips. ACT 112: Negative or not required by law. Electronically signed by: Baltazar Mendez M.D. 03/12/2023 7:[address] 03/12/23 07:[address] DOSE: 676.57 mGy.cm HISTORY: Right proximal tibia fx. Assess joint TECHNIQUE: Multiaxial CT images of the right knee were performed and reformatted in the sagittal and coronal plane without the use of contrast. A dose lowering technique was utilized adhering to the principles of ALARA. COMPARISON: Right knee radiograph 03/11/2023. FINDINGS: No fracture or dislocation within the distal right femur or patella. A small lipohemarthrosis. Subcutaneous hemorrhage noted within the proximal anteromedial lower leg. This is most pronounced on axial image 294 which demonstrates a 5.1 x 2.8 cm subcutaneous hematoma. There is a small of hemorrhage surrounding the proximal tibial and fibular fractures. Comminuted and mildly displaced fractures involving the head and proximal shaft of the fibula. There is associated medial angulation of the proximal fibular fractures. Comminuted and displaced fractures involving the proximal tibia. These extend to the articular surfaces of the medial and lateral tibial plateaus. The medial tib ial plateau fracture is nondisplaced. The lateral tibial plateau fracture demonstrates up to 3 mm of depression laterally. The proximal tibial shaft fractures demonstrate mild anteromedial angulation and up to 12 mm of medial displacement. IMPRESSION: 1. Comminuted and displaced fractures involving the proximal tibia and fibula. The proximal tibial fractures involve the articular surfaces of the medial and lateral tibial plateaus as described above. 2. Small lipohemarthrosis within the right knee. 3. Subcutaneous hemorrhage within the proximal right lower leg including a 5.1 x 2.8 cm anteromedial subcutaneous hematoma. ACT 112: Negative or not required by law. Electronically signed by: Baltazar Mendez M.D. 03/12/2023 8:40 AM (1) Fracture of right tibia and fibula Encounter type: initial encounter Fracture type: closed Qualified Code(s): S82.201A - Unspecified fracture of shaft of right tibia, initial encounter for closed fracture; S82.401A - Unspecified fracture of shaft of right fibula, initial encounter for closed fracture (2) Fall Encounter type: initial encounter Qualified Code(s): W19.XXXA - Unspecified fall, initial encounter (3) HTN (hypertension) Hypertension type: primary hypertension Qualified Code(s): I10 - Essential (primary) hypertension (5) Obesity Obesity type: due to excess calories Obesity classification: adult class 2 (BMI 35 - 39.9) Serious obesity comorbidity presence: with serious comorbidity Body mass index: BMI 35.0-35.9 Qualified Code(s): E66.01 - Morbid (severe) obesity due to excess calories; Z68.35 - Body mass index [BMI] 35.0-35.9, adult
[2023-03-13] MEDS ORDERED: MoRPHine SULFATE 2 MG/ML CARP IV PRN (14:05)
[2023-03-13] MEDS ORDERED: SUGAMMADEX SODIUM 200 MG/2 ML VIAL IV ONE (14:12)
--- NOTE | 2023-03-13 15:10 | Fluoroscopy Report ---
[place] tibia/fibula RT 2V CLINICAL HISTORY: RIGHT ORIF TIB/FIB TECHNIQUE: 5 views were obtained with the C-arm in the OR with the above procedure. Total fluoroscopy time was 58.7 seconds. Radiation dose was 4.4 mGy. Comparison: Comparison is made to right knee radiographs 03/12/2023 FINDINGS/IMPRESSION: Intraoperative images were obtained of open reduction and internal fixation of r ight tibial fracture. Fracture fragments are in near-anatomic alignment. Please correlate with intraoperative fluoroscopy and operative report. ACT 112: Negative or not required by law. Electronically signed by: John Wallis M.D. 03/13/2023 3:09 PM
--- NOTE | 2023-03-13 15:25 | Operative Report ---
PG Post Operative Report Pre & Post Diagnosis Operation Date: 03/13/23 12:00 Pre-Op Diagnosis: Right proximal tibial plateau fracture with metaphyseal comminution and extension into the diaphysis Post-Op Diagnosis: Right proximal tibial plateau fracture with metaphyseal comminution with extension into the diaphysis I identified the patient and participated in the time-out.: Yes Procedure Operation Date: 03/13/23 12:00 Actual Procedures p Right Tibia plateau fracture Open Reduction Internal Fixation(Right) - Jorge Isaac MD Surgeon Jorge Isaac MD [employer] Inspector Matthew Kearns PA-C Estimated Blood Loss 50 Findings Consistent with Post-Op Diagnosis Specimens None Anesthesia Type General Complications none Disposition Accompanied Patient To Recovery: No Indications Patient is a 78-year-old female morbidly obese who sustained injury to her right leg 2 days ago. She was on a stool where a lateral support fell off. She had acute onset of pain and deformity to her leg. Emergency room where x-rays showed a comminuted tibial metaphyseal fracture with tibial plateau extension. The patient was medically optimized and indicated for surgical treatment. Of note the patient is morbidly obese. The we explained increased risk of postsurgical treatment was almost essential. Description of Procedure Operative implants consist of: 1. Synthes 14 hole 3.5 right proximal tibial plateau locking plate. 2. 3.5 mm conical screws x 2. 3. 4.0 partially-threaded cancellous screws x 2. 4. 3.5 fully threaded cortical screws x 2. 5. 3.5 fully threaded locking screws x 11. The patient is taken the operating, identified, and placed on the operating table supine position but all contact areas were properly padded. IV antibiotics arrived by the anesthesia team. General anesthetic was implemented. A right thigh tent was then placed. The right lower extremity then scrubbed with Hibiclens and then prepped with ChloraPrep and draped in usual sterile fashion. The right leg was Elave exsanguinated with use of an Esmarch and the turn was placed at 300 mmHg. An anterior lateral approach to the proximal tibia was then performed through a curvilinear incision beginning just lateral to the anterior crest of the tibia extending proximally and then a curving posteriorly around the proximal tibia and then extending slightly up the distal femur. Sharp dissection Through subcutaneous tissue down to the fascia. The fascia was already open due to the nature of the fracture. I then elevated the anterolateral musculature off the anterolateral aspect of the tibia. I reduced the fracture and held it with some reduction clamps. I then affixed it provisionally with 204.0 partially-threaded cancellous screws to the 2 main fracture fragments. This provided some inherent stability but not perfect. The bone was very osteopenic. I then selected a 14 hole right anterolateral tibial locking plate. It was then temporarily fixed with 2 K wires sent to verify position. Fluoroscopic was brought in to verify position. I then placed 2 conical screws proximally and two 3.5 cortical screws distally to stop the plate down to bone. Of note we did compress some of the comminution at the fracture site and this process. I then fixed it additionally with multiple 3.5 locking screws both proximal proximally and distally. Some final x-rays were obtained. The fracture was perfectly stable. And alignment was excellent. I irrigated the wound extensively. I injected locally with 30 cc of half percent Marcaine with epinephrine. The fascia was approximated with #1 Vicryl suture in a wdiscy-ha-eazaz fashion. The tourniquet is let down for current time of 85 minutes. Hemostasis assured with electrocautery. The wounds once again irrigated. Skin was such that I could not really place any subcu tissues and get it to hold. Therefore we closed the skin with some with #1 the Prolene sutures along with some 3-0 nylon. The leg was then cleaned and dried and sterile dressing with Xeroform, 4 fours, sterile cast padding, ABD pad, Armando bandage and the knee immobilizer were applied. The patient was then brought out of general esthesia and transferred to the recovery in stable condition. Patient tolerated procedure well and there were no complications. Victor Hugo Kearns, my physician mental health assistant, was present for the entire procedure. His assistance was required for proper patient positioning, prepping and draping, surgical exposure, retraction, perform the technical details of the operation, placement of hardware, closure of the incision and placement of sterile bandage. I attest to the content of the Intraoperative Record and any orders documented therein. Any exceptions are noted below.
--- NOTE | 2023-03-13 15:44 | Anesthesiology Progress Note ---
Date of Service March 13, 2023 Anesthesia Post Procedure Vital Signs Vital Signs: Temp Pulse Pulse Pulse Resp BP Pulse Ox 03/13/23 15:35 70 13 144/62 H 98 03/13/23 15:25 76 21 141/61 H 93 03/13/23 15:18 36.6 C 76 12 145/68 H 97 03/13/23 13:11 03/13/23 11:18 36.9 C 84 20 157/66 H 95 03/13/23 07:11 36.6 C 80 16 118/74 93 03/12/23 19:36 36.7 C 75 16 128/79 94 03/12/23 16:23 36.9 C 80 16 153/72 H 97 O2 Del Method O2 Flow Rate 03/13/23 15:35 Oxymask 5 03/13/23 15:25 Oxymask 5 03/13/23 15:18 Oxymask 5 03/13/23 13:11 Room Air 03/13/23 11:18 Room Air 03/13/23 07:11 Room Air 03/12/23 19:36 Room Air 03/12/23 16:23 Room Air Pain Intensity Left Knee: Pain Intensity: 8 Right Leg: Pain Intensity: 8 Transfer of Care Handoff Completed per policy Notes Mental Status: alert / awake / arousable Patient Amnestic to Procedure: Yes Nausea / Vomiting: adequately controlled Pain: adequately controlled Airway Patency, RR, SpO2: stable & adequate BP & HR: stable & adequate Hydration State: stable & adequate Anesthetic Complications: no major complications apparent and Pt Satisfied with anesthetic care
[2023-03-13] MEDS ORDERED: HYDROmorphone INJ 0.5 MG/0.5 ML SYR IV PRN (16:10)
[2023-03-13] MEDS ORDERED: MAGNESIUM HYDROXIDE SUSP 30 ML UDC PO PRN (16:10)
[2023-03-13] MEDS ORDERED: ALUMINUM/MAGNESIUM SUSP 30 ML UDC PO PRN (16:10)
[2023-03-13] MEDS ORDERED: NALOXONE HCL 0.4 MG/1 ML VIAL/CARP IV PRN (16:10)
[2023-03-13] MEDS ORDERED: bisacodyL 10 MG SUPP PR PRN (16:10)
[2023-03-13] MEDS ORDERED: METOCLOPRAMIDE HCL INJ 5 MG/ML 2 ML VIAL IV PRN (16:10)
[2023-03-13] MEDS ORDERED: LABETALOL HCL IV 5 MG/ML 20ML IV STA (16:46)
[2023-03-13] MEDS: SODIUM CHLORIDE 0.9% 1,000 ML IV SCH (18:31)
[2023-03-13] MEDS: ASCORBIC ACID 500 MG TAB PO SCH (18:34)
[2023-03-13] MEDS: KETOROLAC TROMETHAMINE 15 MG/ML VIAL IV SCH ×2 (18:36→23:01)
[2023-03-13] MEDS: SENNA 8.6 MG TAB PO SCH (20:16)
[2023-03-13] MEDS: DOCUSATE SODIUM 100 MG CAP PO SCH (20:16)
[2023-03-13] MEDS: PANTOprazole 40 MG in SYRINGE 0 ML IV SCH (20:17)
[2023-03-13] MEDS: ceFAZolin 2000MG 2,000 MG/15 ML SYR IV SCH (20:17)
--- NOTE | 2023-03-13 21:41 | Electrocardiogram Report ---
Test Reason : Blood Pressure : / mmHG Vent. Rate : 105 BPM Atrial Rate : 105 BPM P-R Int : 172 ms QRS Dur : 072 ms QT Int : 324 ms P-R-T Axes : 055 006 029 degrees QTc Int : 428 ms Sinus tachycardia Septal infarct , age undetermined Nonspecific T wave abnormality Abnormal ECG When compared with ECG of 13-OCT-2019 19:15, Premature ventricular complexes are no longer Present Septal infarct is now Present Nonspecific T wave abnormality now evident in Anterior leads Confirmed by Crow Soliz ([id number]) on 03/13/2023 9:41:05 PM Referred By: REFERRED SELF Confirmed By:Crow Soliz
[2023-03-13] MEDS ORDERED: HEPARIN SOD 5,000 UNIT/0.5 ML VIAL SQ SCH (22:00)
[2023-03-13] MEDS: ACETAMINOPHEN 500 MG TAB PO SCH (22:49)
[2023-03-14] MEDS: oxyCODONE HCL IR 5 MG TAB (IMMEDIATE RELEASE) PO PRN ×3 (03:38→19:22)
[2023-03-14] MEDS: SODIUM CHLORIDE 0.9% 1,000 ML IV SCH (04:11)
[2023-03-14] MEDS: ACETAMINOPHEN 500 MG TAB PO SCH ×3 (05:40→21:49)
[2023-03-14] MEDS: KETOROLAC TROMETHAMINE 15 MG/ML VIAL IV SCH ×4 (05:41→23:01)
[2023-03-14] MEDS: ceFAZolin 2000MG 2,000 MG/15 ML SYR IV SCH (05:41)
--- NOTE | 2023-03-14 07:36 | Surgery Progress Note ---
Date of Service March 14, 2023 Assessment & Plan (1) Fracture of right tibia and fibula: Plan: Morbidly obese female postop day 1 from ORIF of tibial plateau fracture with metaphyseal diaphyseal extension. Orthopedically she is doing well. Pain is controlled. She is neurologically intact. Plan: Keep her knee immobilized for the next 2 weeks. She is strictly nonweightbearing for the next month to 6 weeks. Knee immobilizer at all times. She can take it off if she is just lying in bed but with any motion or mobilization she needs to have the knee immobilizer on. She is nonweightbearing right leg. Will leave the dressing on for couple days. Will plan DVT prophylaxis including thigh-high teds, SCDs, and aspirin twice a day. She is orthopedically okay for discharge anytime medically stable. She will need a rehab or correction facility stay. I need to see her back 3 weeks out from surgery date. Any orthopedic questions can be directly [phone] Admission and Anticipated Discharge Date Admission Date: March 11, 2023 Subjective 78-year-old female postop day 1 from ORIF of a right tibial plateau fracture with significant metaphyseal diaphyseal extension. She is doing well this morning. No pain at all unless she moves. No chest pain or shortness of breath. Not feeling dizzy or lightheaded. Physical Exam Physical Exam: Fully female. She is sitting up in bed looks quite well. Looks in no acute distress. Examination of the right leg reveals the dressing be clean dry and intact. Leg is well aligned. She can dorsiflex and plantarflex her foot and toes appropriately. She is neurologically intact. Results & Data Vital Signs (Past 12 Hours) Vital Signs Temp Pulse Resp BP Pulse Ox O2 Del Method 03/14/23 07:21 36.7 C 82 18 121/65 95 Room Air 03/14/23 03:01 36.7 C 86 18 142/71 H 96 Room Air 03/13/23 23:37 37.0 C 100 H 18 114/66 100 Room Air PG Care Time/CCT Total # of Minutes Spent Total Time Spent with Patient: Total time spent is greater than 50% in coordination of care (as documented) at patient's floor/unit and/or counseling patient: Coding Level of Care Code 77285 Post Operative Follow-Up Diagnoses Closed fracture of right tibia and fibula, initial encounter S82.201A; S82.401A Encounter type: initial encounter Fracture type: closed (1) Fracture of right tibia and fibula Encounter type: initial encounter Fracture type: closed Qualified Code(s): S82.201A - Unspecified fracture of shaft of right tibia, initial encounter for closed fracture; S82.401A - Unspecified fracture of shaft of right fibula, initial encounter for closed fracture
[2023-03-14 08:09] LABS: Calcium 8.1 mg/dl (8.6-10.3); Magnesium 1.9 mg/dl (1.7-2.4); Potassium 4.8 mmol/L (3.5-5.1)
[2023-03-14 08:15] LABS: BUN Creatinine Ratio 22.8 (10-20); Creatinine Clr Calc Pharmacy 43.1 ml/min; Est GFR (African American) 47.1 ml/min; Est GFR (Non-African American) 40.7 ml/min
[2023-03-14] MEDS: ASCORBIC ACID 500 MG TAB PO SCH ×2 (08:35→17:47)
[2023-03-14] MEDS: ROSUVASTATIN CALCIUM 5 MG TAB PO SCH (08:35)
[2023-03-14] MEDS: PANTOprazole 40 MG in SYRINGE 0 ML IV SCH ×2 (08:35→20:20)
[2023-03-14] MEDS: MAGNESIUM OXIDE 400 MG TAB PO SCH (08:36)
[2023-03-14] MEDS: MULTIVITAMIN TAB PO SCH (08:36)
[2023-03-14] MEDS: DOCUSATE SODIUM 100 MG CAP PO SCH ×2 (08:38→20:21)
[2023-03-14 09:07] LABS: Basophils # (auto) 0.02 K/uL (0.00-0.20); Basophils % (auto) 0.2 %; Eosinophils # (auto) 0.01 K/uL (0.00-0.50); Eosinophils % (auto) 0.1 %; Hemoglobin 9.2 g/dl (12.0-16.0); Immature Granulocytes # (auto) 0.06 K/uL (0.01-0.20); Immature Granulocytes % (auto) 0.6 %; Lymphocytes # (auto) 1.01 K/uL (1.20-3.40); Lymphocytes % (auto) 10.3 %; Mean Corpuscular Hemoglobin 33.2 pg (25.0-34.0); Mean Corpuscular Hgb Conc 34.1 g/dL (32.0-36.0); Mean Corpuscular Volume 97.5 fL (80.0-100.0); Mean Platelet Volume 10.5 fL (9.4-12.4); Monocytes # (auto) 0.73 K/uL (0.11-0.59); Monocytes % (auto) 7.4 %; Neutrophils # (auto) 7.98 K/uL (1.40-6.50); Neutrophils % (auto) 81.4 %; Platelet Count 149 K/uL (130-400); RDW Coefficient of Variation 12.6 % (11.5-14.5); Red Blood Count 2.77 M/uL (4.20-5.40); White Blood Count 9.81 K/ul (4.8-10.8)
[2023-03-14] MEDS: lisinopril 20 MG TAB PO SCH (09:46)
[2023-03-14] MEDS: ASPIRIN 81 MG ECTAB PO SCH ×2 (09:46→20:20)
--- NOTE | 2023-03-14 17:23 | Hospitalist Progress Note ---
Date of Service March 14, 2023 Assessment & Plan (1) Fracture of right tibia and fibula: (2) Fall: (3) HTN (hypertension): (4) High cholesterol: (5) Obesity: Plan This is a 78-year-old female with significant past medical history of HTN, HLD, CKD stage III, morbid obesity and anxiety who presents to ED secondary to right ankle pain. She was getting on a stepladder trying to clean her kitchen cupboards whenever she fell off and landed on her right leg. XR: Comminuted, displaced fractures of the proximal fibular metaphysis and tibial metadiaphysis Fall from step ladder Right Tibial and fibula fracture, closed, comminuted, displaced Patient presented after a fall. Tibia/fibula x-ray shows comminuted, displaced fractures of the proximal fibular metaphysis and tibial metadiaphysis. Other imagings including CT head, lumbar spine, hip and pelvic x-ray do not show any acute findings. Knee CT shows comminuted and displaced fractures involving proximal tibia and fibula. Also, proximal tibial fractures involve the articular surfaces of the medial and lateral tibial plateaus Status post ORIF of right tibia fracture on March 13, 2023 Pain control on current medication. DVT prophylaxis with aspirin twice daily Need to keep her knee immobilized for the next 2 weeks. Strict nonweightbearing for the next 6 months to 6 weeks. Acute blood loss anemia Patient has hematoma in right lower leg of 5.1 into 2.8 cm. Hemoglobin down trended from 12.9 on admission to 9.2 Monitor closely. Transfuse if hemoglobin is less than 7 HTN On lisinopril and hydrochlorothiazide. Will hold it for now. HLD chronic stable continue statin CKD 3a baseline cr 1.3-1.4 At baseline Avoid nephrotoxic agent Morbid obesity, BMI 36 encourage diet lifestyle mod when able FULL CODE DVT ppx: Aspirin twice daily PCP:Dr. Moreno Dispo: Patient admitted to medical floor after Tibial and fibula fracture. Underwent surgery yesterday. Will need placement for rehab. Please note the above document was generated using voice recognition software. It may contain grammatical, syntax or spelling errors. Any formal questions or concerns about the content, text or information contained within the body of this dictation should be directly addressed to the provider for clarification Admission and Anticipated Discharge Date Admission Date: March 11, 2023 Subjective Patient seen and examined at bedside. She is lying in the bed comfortably; not in distress. She is able to wiggle her toes. Pain is well-controlled. Review of Systems Review of Systems: All systems reviewed & are unremarkable except as noted in Subjective Physical Exam Physical Exam: Constitutional: Alert oriented x 3; not in distress. Respiratory: Bilateral basilar breath sound Cardiovascular: RRR, no murmur, no edema, obese lower ext Vessels: no JVD or carotid bruit Abdomen: Soft nontender. Musculoskeletal: brace present on right leg. Able to move her toes Skin: no rashes, warm and dry normal turgor Neurologic: PERRL, EOMI, accommodation nl, no face palsy, no dysarthria CN's II-XI intact bilaterally and moves all extremities Psychiatric: A+Ox3, euthymic affect Results & Data Results & Data Vital Signs (Past 12 Hours) Vital Signs Temp Pulse Resp BP Pulse Ox O2 Del Method 03/14/23 14:56 36.6 C 76 16 93/56 L 95 Room Air 03/14/23 12:35 36.8 C 72 16 124/68 96 Room Air 03/14/23 07:21 36.7 C 82 18 121/65 95 Room Air (1) Fracture of right tibia and fibula Encounter type: initial encounter Fracture type: closed Qualified Code(s): S82.201A - Unspecified fracture of shaft of right tibia, initial encounter for closed fracture; S82.401A - Unspecified fracture of shaft of right fibula, initial encounter for closed fracture (2) Fall Encounter type: initial encounter Qualified Code(s): W19.XXXA - Unspecified fall, initial encounter (3) HTN (hypertension) Hypertension type: primary hypertension Qualified Code(s): I10 - Essential (primary) hypertension (5) Obesity Obesity type: due to excess calories Obesity classification: adult class 2 (BMI 35 - 39.9) Serious obesity comorbidity presence: with serious comorbidity Body mass index: BMI 35.0-35.9 Qualified Code(s): E66.01 - Morbid (severe) obesity due to excess calories; Z68.35 - Body mass index [BMI] 35.0-35.9, adult
[2023-03-14] MEDS: SENNA 8.6 MG TAB PO SCH (20:20)
[2023-03-15] MEDS: KETOROLAC TROMETHAMINE 15 MG/ML VIAL IV SCH (05:16)
[2023-03-15] MEDS: ACETAMINOPHEN 500 MG TAB PO SCH ×3 (05:16→20:41)
[2023-03-15 06:41] LABS: Hemoglobin 8.2 g/dl (12.0-16.0); Mean Corpuscular Hemoglobin 33.3 pg (25.0-34.0); Mean Corpuscular Hgb Conc 34.2 g/dL (32.0-36.0); Mean Corpuscular Volume 97.6 fL (80.0-100.0); Nucleated RBC # (auto) 0.02 K/uL (0.00-0.12); Nucleated RBC % (auto) 0.2 %; Platelet Count 154 K/uL (130-400); RDW Standard Deviation 46.5 fL (36.4-46.3); Red Blood Count 2.46 M/uL (4.20-5.40); White Blood Count 8.03 K/ul (4.8-10.8)
[2023-03-15 07:20] LABS: Albumin Globulin Ratio 1.1 (0.9-2); Albumin Level 2.8 gm/dl (3.4-5.0); BUN Creatinine Ratio 26.6 (10-20); Bilirubin,Total 1.2 mg/dl (0.2-1.0); Calcium 7.9 mg/dl (8.6-10.3); Creatinine Clr Calc Pharmacy 26.9 ml/min; Est GFR (African American) 26.7 ml/min; Est GFR (Non-African American) 23.1 ml/min; Globulin 2.5 gm/dl (2.5-4.0); Potassium 5.1 mmol/L (3.5-5.1); Total Protein 5.3 gm/dl (6.0-8.3)
[2023-03-15 07:33] LABS: Basophils # (auto) 0.02 K/uL (0.00-0.20); Basophils % (auto) 0.2 %; Eosinophils # (auto) 0.06 K/uL (0.00-0.50); Eosinophils % (auto) 0.7 %; Immature Granulocytes # (auto) 0.02 K/uL (0.01-0.20); Immature Granulocytes % (auto) 0.2 %; Lymphocytes # (auto) 0.51 K/uL (1.20-3.40); Lymphocytes % (auto) 6.4 %; Monocytes # (auto) 0.54 K/uL (0.11-0.59); Monocytes % (auto) 6.7 %; Neutrophils # (auto) 6.88 K/uL (1.40-6.50); Neutrophils % (auto) 85.8 %
--- NOTE | 2023-03-15 07:57 | Surgery Progress Note ---
Date of Service March 15, 2023 Assessment & Plan (1) Fracture of right tibia and fibula: Plan: 78-year-old female morbidly obese postop day 2 from ORIF of proximal tibia and tibial plateau fracture. She is doing reasonably well. Quite a bit of dried edematous drainage which is into an expected. Her creatinine is bumped up and will have to stop her ketorolac. Hemoglobin hematocrit are a bit low but she is asymptomatic. Recommend just following this. No need for blood transfusion at this point. Plan: 1. DVT prophylaxis including thigh-high teds, SCDs, baby aspirin twice a day for 6 weeks. 2. PT/OT. Strict nonweightbearing right leg. Knee immobilizer at all times.. 3. Pain control doing okay with current pain regimen. 4. Routine wound care. Dressing change daily. Did dressing change for today. 5. Medical management as per the [facility] service. 6. Disposition she is orthopedically okay for discharge anytime medically stable. From the orthopedic standpoint she is nonweightbearing for 6 weeks. Knee immobilizer at all times for now. Dressing change once a day. I need to see her back 2 to 3 weeks out from surgery date. Admission and Anticipated Discharge Date Admission Date: March 11, 2023 Subjective 78-year-old female postop day 2 from ORIF of right proximal tibia and tibial plateau fracture. He is doing reasonably well. Some pain but manageable. Much better than she was preoperatively. No new complaints. Physical Exam Physical Exam: Physical examination is obese elderly female. Lying bed looks pretty comfortable. Examination of the right leg reveals leg to be well aligned. Dres sings Quite a bit of edematous fluid that sleep through.She can dorsiflex and plantarflex her foot appropriately. She is neurologically intact. Results & Data Vital Signs (Past 12 Hours) Vital Signs Temp Pulse Resp BP Pulse Ox O2 Del Method 03/15/23 05:29 36.8 C 78 16 114/62 94 Room Air 03/14/23 20:40 Room Air Laboratory Results Hemoglobin 8.2. Hematocrit 24.0. Creatinine is increased at 2.03. PG Care Time/CCT Total # of Minutes Spent Total Time Spent with Patient: Total time spent is greater than 50% in coordination of care (as documented) at patient's floor/unit and/or counseling patient: Coding Level of Care Code 60202 Post Operative Follow-Up Diagnoses Closed fracture of right tibia and fibula, initial encounter S82.201A; S82.401A Encounter type: initial encounter Fracture type: closed (1) Fracture of right tibia and fibula Encounter type: initial encounter Fracture type: closed Qualified Code(s): S82.201A - Unspecified fracture of shaft of right tibia, initial encounter for closed fracture; S82.401A - Unspecified fracture of shaft of right fibula, initial encounter for closed fracture
[2023-03-15] MEDS: PANTOprazole 40 MG in SYRINGE 0 ML IV SCH ×2 (08:56→20:44)
[2023-03-15] MEDS: ROSUVASTATIN CALCIUM 5 MG TAB PO SCH (08:57)
[2023-03-15] MEDS: MAGNESIUM OXIDE 400 MG TAB PO SCH (08:57)
[2023-03-15] MEDS: ASCORBIC ACID 500 MG TAB PO SCH ×2 (08:57→17:29)
[2023-03-15] MEDS: lisinopril 20 MG TAB PO SCH (08:57)
[2023-03-15] MEDS: MULTIVITAMIN TAB PO SCH (08:57)
[2023-03-15] MEDS: ASPIRIN 81 MG ECTAB PO SCH ×2 (08:58→20:41)
[2023-03-15] MEDS: DOCUSATE SODIUM 100 MG CAP PO SCH ×2 (08:58→20:41)
--- NOTE | 2023-03-15 09:56 | Ultrasound Report ---
RENAL ULTRASOUND HISTORY: Flank pain. Rule out hydronephrosis COMPARISON: None. FINDINGS: Right kidney: 8.7 cm. A 14 mm parapelvic cyst. No hydronephrosis. Normal corticomedullary differentia tion and cortical thickness. Left kidney: 8.5 cm. No hydronephrosis. Normal corticomedullary differentiation and cortical thicknes s. Bladder: Decompressed by a Bond catheter. IMPRESSION: No hydronephrosis. ACT 112: Negative or not required by law. Electronically signed by: Baltazar Mendez M.D. 03/15/2023 9:55 AM
[2023-03-15] MEDS: LACTATED RINGER'S 1,000 ML IV SCH ×2 (10:06→20:20)
[2023-03-15 10:45] LABS: Appearance Urine Clear (Clear); Bacteria Urine Automated Negative (Negative); Blood Urine Negative (Negative); Color Urine Dark Yellow; Epithelial Cell Urine Auto >30 /lpf (0-5); Glucose Urine UA Negative (Negative); Ketones Urine Trace (Negative); Leukocyte Esterase Urine 1+ (Negative); Nitrite Urine Positive (Negative); Protein Urine Negative (Negative); Specific Gravity Urine 1.026 (1.000-1.030); Urobilinogen Urine Negative (Negative)
[2023-03-15 10:47] LABS: Bilirubin Urine 1+ (Negative)
[2023-03-15 11:04] LABS: Urine Potassium 63.1 mmol/L
[2023-03-15 11:12] LABS: Creatinine Urine Random 155.5 mg/dl
--- NOTE | 2023-03-15 14:18 | Hospitalist Progress Note ---
Date of Service March 15, 2023 Assessment & Plan (1) Fracture of right tibia and fibula: (2) Fall: (3) HTN (hypertension): (4) High cholesterol: (5) Obesity: Plan This is a 78-year-old female with significant past medical history of HTN, HLD, CKD stage III, morbid obesity and anxiety who presents to ED secondary to right ankle pain. She was getting on a stepladder trying to clean her kitchen cupboards whenever she fell off and landed on her right leg. XR: Comminuted, displaced fractures of the proximal fibular metaphysis and tibial metadiaphysis Fall from step ladder Right Tibial and fibula fracture, closed, comminuted, displaced Patient presented after a fall. Tibia/fibula x-ray shows comminuted, displaced fractures of the proximal fibular metaphysis and tibial metadiaphysis. Other imagings including CT head, lumbar spine, hip and pelvic x-ray do not show any acute findings. Knee CT shows comminuted and displaced fractures involving proximal tibia and fibula. Also, proximal tibial fractures involve the articular surfaces of the medial and lateral tibial plateaus Status post ORIF of right tibia fracture on March 13, 2023 Pain control on current medication. DVT prophylaxis with aspirin twice daily Need to keep her knee immobilized for the next 2 weeks. Strict nonweightbearing for the next 6 months to 6 weeks. Acute blood loss anemia Patient has hematoma in right lower leg of 5.1 into 2.8 cm. Hemoglobin down trended from 12.9 on admission to 8.2 Monitor closely. Transfuse if hemoglobin is less than 7 VENICE on CKD Suspect prerenal due to low blood pressure. Renal ultrasound negative for hydronephrosis Will start on IV fluids with LR at 100 cc/h Hold lisinopril and hydrochlorothiazide for the time being HLD chronic stable continue statin CKD 3a baseline cr 1.3-1.4 At baseline Avoid nephrotoxic agent Morbid obesity, BMI 36 encourage diet lifestyle mod when able FULL CODE DVT ppx: Aspirin twice daily PCP:Dr. Moreno Dispo: Patient admitted to medical floor after Tibial and fibula fracture. Underwent surgery yesterday. Will need placement for rehab. Time spent evaluating patient, direct bedside care, chart review, placing orders, interpretation of diagnostic studies, discussion with consultants, patient, and family members, as well as other required patient management activities is 50 minutes Please note the above document was generated using voice recognition software. It may contain grammatical, syntax or spelling errors. Any formal questions or concerns about the content, text or information contained within the body of this dictation should be directly addressed to the provider for clarification Admission and Anticipated Discharge Date Admission Date: March 11, 2023 Subjective Patient seen and examined at bedside. She reports nausea today; unable to eat breakfast or dinner. Urine output of 750 cc in 24 hours Review of Systems 2 Review of Systems: All systems reviewed & are unremarkable except as noted in Subjective Physical Exam Physical Exam: Constitutional: Alert oriented x 3; not in distress. Respiratory: Bilateral basilar breath sound Cardiovascular: RRR, no murmur, no edema, obese lower ext Vessels: no JVD or carotid bruit Abdomen: Soft nontender. Musculoskeletal: brace present on right leg. Able to move her toes Skin: no rashes, warm and dry normal turgor Neurologic: PERRL, EOMI, accommodation nl, no face palsy, no dysarthria CN's II-XI intact bilaterally and moves all extremities Psychiatric: A+Ox3, euthymic affect Results & Data Results & Data Vital Signs (Past 12 Hours) Vital Signs Temp Pulse Resp BP Pulse Ox O2 Del Method 03/15/23 10:45 132/67 03/15/23 07:58 36.6 C 98 H 18 92/50 L 96 Room Air 03/15/23 05:29 36.8 C 78 16 114/62 94 Room Air (1) Fracture of right tibia and fibula Encounter type: initial encounter Fracture type: closed Qualified Code(s): S82.201A - Unspecified fracture of shaft of right tibia, initial encounter for closed fracture; S82.401A - Unspecified fracture of shaft of right fibula, initial encounter for closed fracture (2) Fall Encounter type: initial encounter Qualified Code(s): W19.XXXA - Unspecified fall, initial encounter (3) HTN (hypertension) Hypertension type: primary hypertension Qualified Code(s): I10 - Essential (primary) hypertension (5) Obesity Obesity type: due to excess calories Obesity classification: adult class 2 (BMI 35 - 39.9) Serious obesity comorbidity presence: with serious comorbidity Body mass index: BMI 35.0-35.9 Qualified Code(s): E66.01 - Morbid (severe) obesity due to excess calories; Z68.35 - Body mass index [BMI] 35.0-35.9, adult
[2023-03-15] MEDS: SENNA 8.6 MG TAB PO SCH (20:41)
[2023-03-16] MEDS: LACTATED RINGER'S 1,000 ML IV SCH ×2 (05:55→15:56)
[2023-03-16] MEDS: ACETAMINOPHEN 500 MG TAB PO SCH ×3 (05:55→21:17)
[2023-03-16 06:30] LABS: BUN Creatinine Ratio 34.6 (10-20); Calcium 7.7 mg/dl (8.6-10.3); Creatinine Clr Calc Pharmacy 34.4 ml/min; Est GFR (African American) 35.9 ml/min; Potassium 4.7 mmol/L (3.5-5.1)
[2023-03-16 06:50] LABS: Basophils # (auto) 0.03 K/uL (0.00-0.20); Basophils % (auto) 0.4 %; Eosinophils # (auto) 0.08 K/uL (0.00-0.50); Hematocrit (blood only) 22.9 % (37.0-47.0); Hemoglobin 7.6 g/dl (12.0-16.0); Immature Granulocytes # (auto) 0.05 K/uL (0.01-0.20); Immature Granulocytes % (auto) 0.6 %; Lymphocytes # (auto) 0.55 K/uL (1.20-3.40); Lymphocytes % (auto) 6.6 %; Mean Corpuscular Hemoglobin 33.2 pg (25.0-34.0); Mean Corpuscular Hgb Conc 33.2 g/dL (32.0-36.0); Mean Platelet Volume 10.3 fL (9.4-12.4); Monocytes # (auto) 0.83 K/uL (0.11-0.59); Neutrophils # (auto) 6.78 K/uL (1.40-6.50); Neutrophils % (auto) 81.4 %; Platelet Count 170 K/uL (130-400); RBC Morphology Unremarkable; RDW Coefficient of Variation 13.2 % (11.5-14.5); RDW Standard Deviation 48.4 fL (36.4-46.3); Red Blood Count 2.29 M/uL (4.20-5.40); White Blood Count 8.32 K/ul (4.8-10.8)
[2023-03-16] MEDS: DOCUSATE SODIUM 100 MG CAP PO SCH ×2 (07:58→20:27)
[2023-03-16] MEDS: MULTIVITAMIN TAB PO SCH (08:49)
[2023-03-16] MEDS: ASCORBIC ACID 500 MG TAB PO SCH ×2 (08:49→17:00)
[2023-03-16] MEDS: ROSUVASTATIN CALCIUM 5 MG TAB PO SCH (08:49)
[2023-03-16] MEDS: ASPIRIN 81 MG ECTAB PO SCH ×2 (08:49→20:28)
[2023-03-16] MEDS: lisinopril 20 MG TAB PO SCH (08:50)
[2023-03-16] MEDS: PANTOprazole 40 MG in SYRINGE 0 ML IV SCH ×2 (08:58→20:28)
[2023-03-16] MEDS ORDERED: PANTOprazole 40 MG TAB PO SCH (09:00)
--- NOTE | 2023-03-16 12:16 | Hospitalist Progress Note ---
Date of Service March 16, 2023 Assessment & Plan (1) Fracture of right tibia and fibula: (2) Fall: (3) HTN (hypertension): (4) High cholesterol: (5) Obesity: Plan This is a 78-year-old female with significant past medical history of HTN, HLD, CKD stage III, morbid obesity and anxiety who presents to ED secondary to right ankle pain. She was getting on a stepladder trying to clean her kitchen cupboards whenever she fell off and landed on her right leg. XR: Comminuted, displaced fractures of the proximal fibular metaphysis and tibial metadiaphysis Fall from step ladder Right Tibial and fibula fracture, closed, comminuted, displaced Patient presented after a fall. Tibia/fibula x-ray shows comminuted, displaced fractures of the proximal fibular metaphysis and tibial metadiaphysis. Other imagings including CT head, lumbar spine, hip and pelvic x-ray do not show any acute findings. Knee CT shows comminuted and displaced fractures involving proximal tibia and fibula. Also, proximal tibial fractures involve the articular surfaces of the medial and lateral tibial plateaus Status post ORIF of right tibia fracture on March 13, 2023 Pain control on current medication. DVT prophylaxis with aspirin twice daily Need to keep her knee immobilized for the next 2 weeks. Strict nonweightbearing for the next 6 months to 6 weeks. Acute blood loss anemia Possible upper GI bleed Patient has hematoma in right lower leg of 5.1 into 2.8 cm. Hemoglobin down trended from 12.9 on admission to 7.6 BUN markedly elevated Patient denies any gross bleeding Fecal occult negative Started on IV Protonix twice daily Continue on IV fluids. Transfuse if hemoglobin is less than 7. Complex scenario; patient needs anticoagulation or aspirin for DVT prophylaxis given her recent surgery. Will appreciate GI input. Will make her n.p.o. from midnight VENICE on CKD Suspect prerenal due to low blood pressure. Renal ultrasound negative for hydronephrosis Creatinine downtrending with IV fluids Continue IV fluids Strict input and output HLD chronic stable continue statin CKD 3a baseline cr 1.3-1.4 At baseline Avoid nephrotoxic agent Morbid obesity, BMI 36 encourage diet lifestyle mod when able FULL CODE DVT ppx: Aspirin twice daily PCP:Dr. Moreno Dispo: Patient admitted to medical floor after Tibial and fibula fracture. Status post surgery. Concern of acute blood loss anemia and upper GI bleed. Time spent evaluating patient, direct bedside care, chart review, placing orders, interpretation of diagnostic studies, discussion with consultants, patient, and family members, as well as other required patient management activities is 60 minutes Please note the above document was generated using voice recognition software. It may contain grammatical, syntax or spelling errors. Any formal questions or concerns about the content, text or information contained within the body of this dictation should be directly addressed to the provider for clarification Admission and Anticipated Discharge Date Admission Date: March 11, 2023 Subjective Patient seen and examined at bedside. She reports that she had multiple bowel movements yesterday. She reports that the nausea has improved compared to yesterday. Review of Systems Review of Systems: All systems reviewed & are unremarkable except as noted in Subjective Physical Exam Physical Exam: Constitutional: Alert oriented x 3; not in distress. Respiratory: Bilateral basilar breath sound Cardiovascular: RRR, no murmur, no edema, obese lower ext Vessels: no JVD or carotid bruit Abdomen: Soft nontender. Musculoskeletal: brace present on right leg. Able to move her toes Skin: no rashes, warm and dry normal turgor Neurologic: PERRL, EOMI, accommodation nl, no face palsy, no dysarthria CN's II-XI intact bilaterally and moves all extremities Psychiatric: A+Ox3, euthymic affect Results & Data Results & Data Vital Signs (Past 12 Hours) Vital Signs Temp Pulse Resp BP Pulse Ox O2 Del Method 03/16/23 10:03 80 97 Room Air 03/16/23 07:51 36.8 C 92 H 16 123/62 93 Room Air (1) Fracture of right tibia and fibula Encounter type: initial encounter Fracture type: closed Qualified Code(s): S82.201A - Unspecified fracture of shaft of right tibia, initial encounter for closed fracture; S82.401A - Unspecified fracture of shaft of right fibula, initial encounter for closed fracture (2) Fall Encounter type: initial encounter Qualified Code(s): W19.XXXA - Unspecified fall, initial encounter (3) HTN (hypertension) Hypertension type: primary hypertension Qualified Code(s): I10 - Essential (primary) hypertension (5) Obesity Body mass index: BMI 35.0-35.9 Obesity classification: adult class 2 (BMI 35 - 39.9) Obesity type: due to excess calories Serious obesity comorbidity presence: with serious comorbidity Qualified Code(s): E66.01 - Morbid (severe) obesity due to excess calories; Z68.35 - Body mass index [BMI] 35.0-35.9, adult
[2023-03-16] MEDS: oxyCODONE HCL IR 5 MG TAB (IMMEDIATE RELEASE) PO PRN (18:05)
[2023-03-16] MEDS: SENNA 8.6 MG TAB PO SCH (20:28)
[2023-03-17] MEDS: LACTATED RINGER'S 1,000 ML IV SCH ×3 (02:10→23:37)
[2023-03-17] MEDS: ACETAMINOPHEN 500 MG TAB PO SCH ×3 (05:54→21:44)
[2023-03-17] MEDS: oxyCODONE HCL IR 5 MG TAB (IMMEDIATE RELEASE) PO PRN (05:56)
[2023-03-17 08:04] LABS: Hemoglobin 6.8 g/dl (12.0-16.0); Mean Corpuscular Hemoglobin 33.2 pg (25.0-34.0); Mean Corpuscular Volume 97.6 fL (80.0-100.0); Mean Platelet Volume 10.1 fL (9.4-12.4); Nucleated RBC # (auto) 0.02 K/uL (0.00-0.12); Nucleated RBC % (auto) 0.2 %; Platelet Count 188 K/uL (130-400); RDW Coefficient of Variation 13.1 % (11.5-14.5); Red Blood Count 2.05 M/uL (4.20-5.40); White Blood Count 10.19 K/ul (4.8-10.8)
[2023-03-17 08:08] LABS: Albumin Globulin Ratio 0.9 (0.9-2); Albumin Level 2.4 gm/dl (3.4-5.0); BUN Creatinine Ratio 34.4 (10-20); Bilirubin,Total 0.9 mg/dl (0.2-1.0); Calcium 7.6 mg/dl (8.6-10.3); Creatinine Clr Calc Pharmacy 42.7 ml/min; Est GFR (African American) 46.7 ml/min; Est GFR (Non-African American) 40.3 ml/min; Globulin 2.6 gm/dl (2.5-4.0); Potassium 4.9 mmol/L (3.5-5.1)
[2023-03-17 08:18] LABS: Basophils # (auto) 0.02 K/uL (0.00-0.20); Basophils % (auto) 0.2 %; Eosinophils # (auto) 0.17 K/uL (0.00-0.50); Eosinophils % (auto) 1.7 %; Immature Granulocytes # (auto) 0.08 K/uL (0.01-0.20); Immature Granulocytes % (auto) 0.8 %; Lymphocytes # (auto) 0.77 K/uL (1.20-3.40); Lymphocytes % (auto) 7.6 %; Monocytes # (auto) 0.94 K/uL (0.11-0.59); Monocytes % (auto) 9.2 %; Neutrophils # (auto) 8.21 K/uL (1.40-6.50); Neutrophils % (auto) 80.5 %; Polychromasia 1+
[2023-03-17] MEDS: ASPIRIN 81 MG ECTAB PO SCH (08:22)
[2023-03-17] MEDS: ASCORBIC ACID 500 MG TAB PO SCH ×2 (08:41→16:23)
[2023-03-17] MEDS: PANTOprazole 40 MG in SYRINGE 0 ML IV SCH ×2 (08:42→20:07)
[2023-03-17] MEDS: DOCUSATE SODIUM 100 MG CAP PO SCH ×2 (08:43→20:08)
[2023-03-17] MEDS: MULTIVITAMIN TAB PO SCH (08:44)
[2023-03-17] MEDS: ROSUVASTATIN CALCIUM 5 MG TAB PO SCH (08:45)
[2023-03-17] MEDS: lisinopril 20 MG TAB PO SCH (08:45)
[2023-03-17] MEDS ORDERED: SODIUM CHLORIDE 0.9% 250 ML IV PRN (09:02)
--- NOTE | 2023-03-17 09:48 | Gastrointestinal Consultation ---
Date of Consultation March 17, 2023 Assessment & Plan (1) Heme positive stool: (2) Acute blood loss anemia: Plan Patient is a 78 y.o. female with declining H&H and heme positive stool in the setting of post-operative IV NSAID use s/p right tibula ORIF. 1. NPO. 2. Continue Pantoprazole 40 mg IV BID. 3. Transfuse Hgb ~8. 4. EGD tomorrow with Dr. Howard for further evaluation given clinical concern for need of ongoing anticoagulation use. 4. Further recommendations will be made pending results of testing. Thank you for allowing us to participate in the care of this patient. If you have any questions or concerns, please do not hesitate to contact us. Supervising Physician Co-Signing Physician Notes I saw the patient and agree with the findings as documented by BEN Mckoy History of Present Illness Reason for Consultation: Anemia and heme positive stool Requesting Physician: Dr. Alcocer Attending Physician: Jeff Alcocer MD History of Present Illness Patient is a 78 y.o. obese female with a history of HTN and H pylori infection admitted after sustaining a right tibula fracture during a fall from a step stool. She is status post ORIF right tibula on 03/[address] Isaac. She was receiving IV Toradol postoperatively. Over the past several days, she has been noted to have a downtrending H&H and was heme positive yesterday. Hemoglobin last evening was 7./ and has dropped to 6.8 this morning. Despite this, the patient denies any significant complaints other than right leg pain. She denies any dizziness, syncope, chest pain, palpitations, shortness of breath, abdominal pain, vomiting, diarrhea, or rectal bleeding. States she did have on episode of nausea yesterday morning after taking her AM medications but that has since subsided. She remains NPO and has been started on BID PPI. GI has been consulted due to concern for UGIB and need for anticoagulation postoperatively. Allergies Allergy/AdvReac Type Severity Reaction Status Date / Time aspirin AdvReac Unknown Nausea Verified 01/20/20 13:11 Home Medications Medication Instructions Recorded Confirmed Type aspirin 81 mg tablet,delayed 81 mg PO QAM 01/31/18 03/11/23 History release lisinopril 20 1 tab PO DAILY 01/31/18 03/11/23 History mg-hydrochlorothiazide 25 mg tablet lorazepam 0.5 mg tablet 0.5 mg PO TID PRN Anxiety 01/31/18 03/11/23 History rosuvastatin 5 mg tablet 5 mg PO DAILY 09/15/19 03/11/23 History clotrimazole-betamethasone 1 1 applic topical .APPLY SPARINGLY 01/18/20 03/11/23 History %-0.05 % topical cream TO AFFECTED AREA(S) 3 TIMES A DAY for 7-10 days as needed PRN Other magnesium 1 tab PO DAILY 03/11/23 03/11/23 History Patient History Medical History (Updated 03/17/23 @ 09:48 by BEN Gibbs) Obesity High cholesterol HTN (hypertension) Surgical History History of hip surgery Hx of tubal ligation Family History Other No pertinent family history Denies family history of Ovarian cancer Breast cancer Colorectal cancer Social History Smoking Status: Never smoker Second Hand Exposure: No; Do You Dip or Chew Tobacco: No; Tobacco Cessation Education Requested by Patient: No Hx Alcohol Use: No Hx Substance Use: No Preferred Language: Moroccan Communication Ability: Effective Visual Impairment: No Limitations Hearing Ability: Normal Coin Machine Supervisor Required: No Beliefs That Will Affect Care: None Current Living Situation: Alone current occupational status: retired Other Information That Helps Us Care for You: No Feels Safe at Home: Yes Safety Concerns: Feels Safe At This Time Assistive Devices: Walker Review of Systems Constitutional: as per Subjective / HPI Respiratory: as per Subjective / HPI Cardiovascular: as per Subjective / HPI Gastrointestinal: as per Subjective / HPI Physical Exam Constitutional: WD/WN, vitals as above Eyes: EOM intact bilaterally Neck: normal visual inspection Respiratory: normal respiratory effort, lungs clear to auscultation Cardiovascular: Rate/Rhythm: regular rate and regular rhythm Heart Sounds: + murmur Gastrointestinal (Abdomen): Inspection/Auscultation: abdomen normal to inspection and normal bowel sounds Percussion/Palpation: abdomen soft; abdomen nontender, no guarding and abdomen not rigid Musculoskeletal: Right leg dressing with serous drainage noted. No gross blood. Psychiatric: A+Ox3, euthymic affect Results & Data Vital Signs (Past 12 Hours) Vital Signs Temp Pulse Resp BP Pulse Ox O2 Del Method 03/17/23 06:32 37.2 C 84 16 101/65 92 Room Air 03/16/23 21:53 36.8 C 89 16 117/63 94 Room Air Diagnostic Findings Laboratory Results WBC 10.19 K/ul (4.8-10.8) 03/17/23 07:09 RBC 2.05 M/uL (4.20-5.40) L 03/17/23 07:09 Hgb 6.8 g/dl (12.0-16.0) L* 03/17/23 07:09 Hct 20.0 % (37.0-47.0) L* 03/17/23 07:09 MCV 97.6 fL (80.0-100.0) 03/17/23 07:09 MCH 33.2 pg (25.0-34.0) 03/17/23 07:09 MCHC 34.0 g/dL (32.0-36.0) 03/17/23 07:09 RDW Std Deviation 47.0 fL (36.4-46.3) H 03/17/23 07:09 RDW Coeff of Gee 13.1 % (11.5-14.5) 03/17/23 07:09 Plt Count 188 K/uL (130-400) 03/17/23 07:09 MPV 10.1 fL (9.4-12.4) 03/17/23 07:09 Immature Gran % (Auto) 0.8 % 03/17/23 07:09 Neut % (Auto) 80.5 % 03/17/23 07:09 Lymph % (Auto) 7.6 % 03/17/23 07:09 [place] % (Auto) 9.2 % 03/17/23 07:09 Eos % (Auto) 1.7 % 03/17/23 07:09 Baso % (Auto) 0.2 % 03/17/23 07:09 Neut # (Auto) 8.21 K/uL (1.40-6.50) H 03/17/23 07:09 Lymph # (Auto) 0.77 K/uL (1.20-3.40) L 03/17/23 07:09 [place] # (Auto) 0.94 K/uL (0.11-0.59) H 03/17/23 07:09 Eos # (Auto) 0.17 K/uL (0.00-0.50) 03/17/23 07:09 Baso # (Auto) 0.02 K/uL (0.00-0.20) 03/17/23 07:09 Immature Gran # (Auto) 0.08 K/uL (0.01-0.20) 03/17/23 07:09 Absolute Nucleated RBC 0.02 K/uL (0.00-0.12) 03/17/23 07:09 Nucleated RBC % (auto) 0.2 % 03/17/23 07:09 Neutrophils % (Manual) Cancelled 03/14/23 06:56 Band Neutrophils % Cancelled 03/14/23 06:56 Lymphocytes % (Manual) Cancelled 03/14/23 06:56 Prolymphocyte % Cancelled 03/14/23 06:56 Reactive Lymphs % (Man) Cancelled 03/14/23 06:56 Monocytes % (Manual) Cancelled 03/14/23 06:56 Eosinophils % (Manual) Cancelled 03/14/23 06:56 Basophils % (Manual) Cancelled 03/14/23 06:56 Metamyelocytes % (Man) Cancelled 03/14/23 06:56 Myelocytes % (Man) Cancelled 03/14/23 06:56 Promyelocytes % (Man) Cancelled 03/14/23 06:56 Blast Cells % (Manual) Cancelled 03/14/23 06:56 Plasma Cell % (Manual) Cancelled 03/14/23 06:56 Other Cells % Cancelled 03/14/23 06:56 Nucleated RBC % Cancelled 03/14/23 06:56 Neutrophils # (Manual) Cancelled 03/14/23 06:56 Band Neutrophils # Cancelled 03/14/23 06:56 Total Absolute Neuts Cancelled 03/14/23 06:56 Lymphocytes # (Manual) Cancelled 03/14/23 06:56 Prolymphocyte # Cancelled 03/14/23 06:56 Reactive Lymphs # Cancelled 03/14/23 06:56 Total Abs Lymphocytes Cancelled 03/14/23 06:56 Monocytes # (Manual) Cancelled 03/14/23 06:56 Eosinophils # (Manual) Cancelled 03/14/23 06:56 Basophils # (Manual) Cancelled 03/14/23 06:56 Metamyelocytes # (Man) Cancelled 03/14/23 06:56 Myelocytes # (Manual) Cancelled 03/14/23 06:56 Promyelocytes # (Man) Cancelled 03/14/23 06:56 Blast Cells # (Man) Cancelled 03/14/23 06:56 Plasma Cell # (Manual) Cancelled 03/14/23 06:56 Other Cells # Cancelled 03/14/23 06:56 Nucleated RBCs # (Man) Cancelled 03/14/23 06:56 Hypersegmented Neuts Cancelled 03/14/23 06:56 Hyposegmented Neuts Cancelled 03/14/23 06:56 Hypogranular Neuts Cancelled 03/14/23 06:56 Large Granular Lymphs Cancelled 03/14/23 06:56 # Lrg Granular Lymphs Cancelled 03/14/23 06:56 Hairy Cells Cancelled 03/14/23 06:56 Smudge Cells Cancelled 03/14/23 06:56 Toxic Granulation Cancelled 03/14/23 06:56 Toxic Vacuolation Cancelled 03/14/23 06:56 Dohle Bodies Cancelled 03/14/23 06:56 [place] Rods Cancelled 03/14/23 06:56 Platelet Estimate Cancelled 03/14/23 06:56 Hypogranular Platelets Cancelled 03/14/23 06:56 Giant Platelets Cancelled 03/14/23 06:56 Platelet Satelliting Cancelled 03/14/23 06:56 RBC Morphology Unremarkable 03/16/23 05:29 Polychromasia 1+ 03/17/23 07:09 Hypochromasia Cancelled 03/14/23 06:56 Poikilocytosis Cancelled 03/14/23 06:56 Basophilic Stippling Cancelled 03/14/23 06:56 Anisocytosis Cancelled 03/14/23 06:56 Microcytosis Cancelled 03/14/23 06:56 Macrocytosis Cancelled 03/14/23 06:56 Spherocytes Cancelled 03/14/23 06:56 Pappenheimer Bodies Cancelled 03/14/23 06:56 Sickle Cells Cancelled 03/14/23 06:56 Target Cells Cancelled 03/14/23 06:56 Tear Drop Cells Cancelled 03/14/23 06:56 Ovalocytes Cancelled 03/14/23 06:56 Stomatocytes Cancelled 03/14/23 06:56 [place] Bodies Cancelled 03/14/23 06:56 Echinocytes Cancelled 03/14/23 06:56 Acanthocytes (Spur) Cancelled 03/14/23 06:56 Rouleaux Cancelled 03/14/23 06:56 RBC Agglutinates Cancelled 03/14/23 06:56 Schistocytes Cancelled 03/14/23 06:56 Sezary Cell Cancelled 03/14/23 06:56 PT 10.7 Seconds (9.0-12.0) 03/11/23 20:08 INR 1.0 (0.9-1.1) 03/11/23 20:08 APTT 25 Seconds (21-31) 03/11/23 20:08 PTT Ratio 0.9 03/11/23 20:08 Sodium 135 mmol/L (136-145) L 03/17/23 07:09 Potassium 4.9 mmol/L (3.5-5.1) 03/17/23 07:09 Chloride 105 mmol/L (98-107) 03/17/23 07:09 Carbon Dioxide 24 mmol/L (21-32) 03/17/23 07:09 Anion Gap 6 (3-11) 03/17/23 07:09 BUN 44 mg/dl (6-23) H 03/17/23 07:09 Creatinine 1.28 mg/dl (0.6-1.2) H D 03/17/23 07:09 Est Cr Clr Drug Dosing 42.7 ml/min 03/17/23 07:09 Est GFR ( Amer) 46.7 ml/min 03/17/23 07:09 Est GFR (Non-Af Amer) 40.3 ml/min 03/17/23 07:09 BUN/Creatinine Ratio 34.4 (10-20) H 03/17/23 07:09 Glucose 100 mg/dl (70-99(Fasting)) H 03/17/23 07:09 Calcium 7.6 mg/dl (8.6-10.3) L 03/17/23 07:09 Magnesium 1.9 mg/dl (1.7-2.4) 03/14/23 06:56 Total Bilirubin 0.9 mg/dl (0.2-1.0) 03/17/23 07:09 AST 24 U/L (13-39) 03/17/23 07:09 ALT 10 U/L (7-52) 03/17/23 07:09 Alkaline Phosphatase 76 U/L (34-104) 03/17/23 07:09 Total Protein 5.0 gm/dl (6.0-8.3) L 03/17/23 07:09 Albumin 2.4 gm/dl (3.4-5.0) L 03/17/23 07:09 Globulin 2.6 gm/dl (2.5-4.0) 03/17/23 07:09 Albumin/Globulin Ratio 0.9 (0.9-2) 03/17/23 07:09 Urine Color Dark Yellow 03/15/23 10:15 Urine Appearance Clear (Clear) 03/15/23 10:15 Urine pH 5.0 (4.5-7.5) 03/15/23 10:15 Ur Specific [place] 1.026 (1.000-1.030) 03/15/23 10:15 Urine Protein Negative (Negative) 03/15/23 10:15 Urine Glucose (UA) Negative (Negative) 03/15/23 10:15 Urine Ketones Trace (Negative) H 03/15/23 10:15 Urine Blood Negative (Negative) 03/15/23 10:15 Urine Nitrite Positive (Negative) A 03/15/23 10:15 Urine Bilirubin 1+ (Negative) H 03/15/23 10:15 Urine Urobilinogen Negative (Negative) 03/15/23 10:15 Ur Leukocyte Esterase 1+ (Negative) H 03/15/23 10:15 Urine WBC (Auto) 1-5 /hpf (0-5) 03/15/23 10:15 Urine RBC (Auto) 5-10 /hpf (0-4) H 03/15/23 10:15 U Hyaline Cast (Auto) 1-5 /lpf (0-5) 03/15/23 10:15 U Epithel Cells (Auto) >30 /lpf (0-5) H 03/15/23 10:15 Urine Bacteria (Auto) Negative (Negative) 03/15/23 10:15 Ur Random Creatinine 155.5 mg/dl 03/15/23 10:15 Urine Sodium 24 mmol/L 03/15/23 10:15 Urine Potassium 63.1 mmol/L 03/15/23 10:15 Urine Chloride 16 mmol/L 03/15/23 10:15 Stool Occult Bld Scrn Positive (Negative) A 03/16/23 09:30 Stl C. diff Tox B Gene Negative Cdiff Gene (Neg) 03/16/23 09:30 Blood Parasites ID Cancelled 03/14/23 06:56 Blood Type A Positive 03/11/23 22:56 Antibody Screen NEGATIVE 03/11/23 22:[address] 03/11/23 15:30 CT cervical spine wo con CLINICAL HISTORY: Trauma TECHNIQUE: Multidetector row helical CT of the cervical spine was performed without administration of intravenous contrast. Coronal and sagittal reformations were obtained. Automated dose lowering techniques and/or adjustment according to patient size were utilized for this exam. Comparison: Comparison is made to CT soft tissue neck 10/13/2019 FINDINGS: No acute fractures or subluxations are identified. Degenerative changes are seen in the visualized spine. The alignment is normal. Biapical scarring is seen in the lungs. IMPRESSION: Degenerative changes without evidence of acute bony injury. ACT 112: Negative or not required by law. Electronically signed by: John Wallis M.D. 03/11/2023 4:58 PM Elbow X-Ray 03/11/23 15:30 XR elbow RT min 3V routine CLINICAL HISTORY: Trauma. Fall. Right elbow pain. COMPARISON STUDY: None. FINDINGS: No fracture or dislocation within the right elbow. Soft tissues are unremarkable. No elbow effusion. No radiopaque foreign bodies. IMPRESSION: No fracture or dislocation within the right elbow. ACT 112: Negative or not required by law. Electronically signed by: Baltazar Mendez M.D. 03/11/2023 4:[address] 03/11/23 15:30 CT head/brain wo con CLINICAL HISTORY: Trauma Technique: Contiguous axial CT images of the head were acquired from the base of the skull to the vertex without intravenous contrast administration. Images were viewed in brain, subdural and bone windows. Automated dose lowering techniques and/or adjustment according to patient size were utilized for this exam. Comparison: None available at the time of this dictation. Findings: The ventricles, basal cisterns, and cerebral sulci are normal. There is no acute intracranial hemorrhage or evidence of acute territorial infarction. Neither mass effect, shift of the midline structures, nor abnormal extra-axial fluid collections are shown. ENCEPHALOMALACIA IN THE LEFT BASAL GANGLIA LIKELY CORRES PONDS TO A PRIOR LACUNAR INFARCT. Imaged portions of the paranasal sinuses and mastoid air cells are clear. The orbits appear normal. There are no acute fractures of the calvaria or scalp swelling. Impression: No acute intracranial hemorrhage, no evidence of acute territorial infarction or other acute intracranial disease process. ACT 112: Negative or not required by law. Electronically signed by: John Wallis M.D. 03/11/2023 4:52 PM Knee X-Ray 03/11/23 15:30 XR knee RT 3V, XR tibia fibula RT 2V, XR ankle RT min 3V routine CLINICAL HISTORY: Trauma TECHNIQUE: 2 views of the right knee were obtained. 2 views of the right tibia and fibula were obtained. 3 views of the ankle were obtained. Comparison: None available at the time of this dictation. FINDINGS: Comminuted, mildly displaced fractures of the proximal fibular metaphysis and tibial metadiaphysis. Degenerative changes are seen in the knee joint. No joint effusion is seen. Soft tissue swelling is seen throughout the lower extremity and in the ankle. IMPRESSION: Comminuted, displaced fractures of the proximal fibular metaphysis and tibial metadiaphysis. No definite articular involvement. ACT 112: Negative or not required by law. Electronically signed by: John Wallis M.D. 03/11/2023 4:[address] 03/11/23 15:30 CT lumbar spine wo con CLINICAL HISTORY: Trauma TECHNIQUE: Multidetector row helical CT of the lumbar spine was performed without administration of intravenous contrast. Coronal and sagittal reformat ions were obtained. Automated dose lowering techniques and/or adjustment according to patient size were utilized for this exam. Comparison: Comparison is made to lumbar spine radiographs 09/15/2019 FINDINGS: For counting purposes, the last complete intervertebral disc space is considered L5-S1. There is a anterior compression deformity of L1 which appears chronic. Rudimentary ribs are seen bilaterally at L1. Degenerative changes are noted in the visualized spine. Vertebral body alignment is within normal limits. Surrounding soft tissues are unremarkable. IMPRESSION: Degenerative changes without evidence of acute bony injury. ACT 112: Negative or not required by law. Electronically signed by: John Wallis M.D. 03/11/2023 5:07 PM Ankle X-Ray 03/11/23 16:08 XR knee RT 3V, XR tibia fibula RT 2V, XR ankle RT min 3V routine CLINICAL HISTORY: Trauma TECHNIQUE: 2 views of the right knee were obtained. 2 views of the right tibia and fibula were obtained. 3 views of the ankle were obtained. Comparison: None available at the time of this dictation. FINDINGS: Comminuted, mildly displaced fractures of the proximal fibular metaphysis and tibial metadiaphysis. Degenerative changes are seen in the knee joint. No joint effusion is seen. Soft tissue swelling is seen throughout the lower extremity and in the ankle. IMPRESSION: Comminuted, displaced fractures of the proximal fibular metaphysis and tibial metadiaphysis. No definite articular involvement. ACT 112: Negative or not required by law. Electronically signed by: John Wallis M.D. 03/11/2023 4:49 PM Chest X-Ray 03/11/23 17:03 XR chest 1V portable CLINICAL HISTORY: Pre-op TECHNIQUE: Single frontal radiograph of the chest was obtained. Comparison: Comparison is made to chest radiograph 10/13/2019 FINDINGS: No lines and tubes are seen. The cardiomediastinal silhouette is normal. The lungs are clear. No evidence of pleural effusion or pneumothorax. IMPRESSION: No acute chest disease. ACT 112: Negative or not required by law. Electronically signed by: John Wallis M.D. 03/11/2023 5:43 PM Hip/Pelvis X-Ray 03/11/23 17:51 XR hip RT 2V w pelvis CLINICAL HISTORY: pain, fall COMPARISON STUDY: Pelvis and right hip 09/15/2019. FINDINGS: There is a right total hip arthroplasty. The hardware is intact. No fracture or dislocation within the pelvis or hips. No abnormal periprosthetic lucency. Soft tissues are unremarkable. IMPRESSION: No fracture or dislocation within the pelvis or hips. ACT 112: Negative or not required by law. Electronically signed by: Baltazar Mendez M.D. 03/12/2023 7:[address] 03/12/23 07:[address] DOSE: 676.57 mGy.cm HISTORY: Right proximal tibia fx. Assess joint TECHNIQUE: Multiaxial CT images of the right knee were performed and reformatted in the sagittal and coronal plane without the use of contrast. A dose lowering technique was utilized adhering to the principles of ALARA. COMPARISON: Right knee radiograph 03/11/2023. FINDINGS: No fracture or dislocation within the distal right femur or patella. A small lipohemarthrosis. Subcutaneous hemorrhage noted within the proximal anteromedial lower leg. This is most pronounced on axial image 294 which demonstrates a 5.1 x 2.8 cm subcutaneous hematoma. There is a small of hemorrhage surrounding the proximal tibial and fibular fractures. Comminuted and mildly displaced fractures involving the head and proximal shaft of the fibula. There is associated medial angulation of the proximal fibular fractures. Comminuted and displaced fractures involving the proximal tibia. These extend to the articular surfaces of the medial and lateral tibial plateaus. The medial tibial plateau fracture is nondisplaced. The lateral tibial plateau fracture demonstrates up to 3 mm of depression laterally. The proximal tibial shaft fra ctures demonstrate mild anteromedial angulation and up to 12 mm of medial displacement. IMPRESSION: 1. Comminuted and displaced fractures involving the proximal tibia and fibula. The proximal tibial fractures involve the articular surfaces of the medial and lateral tibial plateaus as described above. 2. Small lipohemarthrosis within the right knee. 3. Subcutaneous hemorrhage within the proximal right lower leg including a 5.1 x 2.8 cm anteromedial subcutaneous hematoma. ACT 112: Negative or not required by law. Electronically signed by: Baltazar Mendez M.D. 03/12/2023 8:40 AM Tibia/Fibula X-Ray 03/13/23 12:00 [place] tibia/fibula RT 2V CLINICAL HISTORY: RIGHT ORIF TIB/FIB TECHNIQUE: 5 views were obtained with the C-arm in the OR with the above procedure. Total fluoroscopy time was 58.7 seconds. Radiation dose was 4.4 mGy. Comparison: Comparison is made to right knee radiographs 03/12/2023 FINDINGS/IMPRESSION: Intraoperative images were obtained of open reduction and internal fixation of right tibial fracture. Fracture fragments are in near- anatomic alignment. Please correlate with intraoperative fluoroscopy and operative report. ACT 112: Negative or not required by law. Electronically signed by: John Wallis M.D. 03/13/2023 3:09 PM Renal Ultrasound 03/15/23 08:47 RENAL ULTRASOUND HISTORY: Flank pain. Rule out hydronephrosis COMPARISON: None. FINDINGS: Right kidney: 8.7 cm. A 14 mm parapelvic cyst. No hydronephrosis. Normal corticomedullary differentiation and cortical thickness. Left kidney: 8.5 cm. No hydronephrosis. Normal corticomedullary differentiation and cortical thickness. Bladder: Decompressed by a Bond catheter. IMPRESSION: No hydronephrosis. ACT 112: Negative or not required by law. Electronically signed by: Baltazar Mendez M.D. 03/15/2023 9:55 AM PG Care Time/CCT Total # of Minutes Spent Total Time Spent with Patient: Total time spent is greater than 50% in coordination of care (as documented) at patient's floor/unit and/or counseling patient: Coding Level of Care Code 63285 INT INP/OBS CARE 3/75MIN Diagnoses Heme positive stool R19.5 Acute blood loss anemia D62
--- NOTE | 2023-03-17 14:27 | Hospitalist Progress Note ---
Date of Service March 17, 2023 Assessment & Plan (1) Fracture of right tibia and fibula: (2) Fall: (3) HTN (hypertension): (4) High cholesterol: (5) Obesity: Plan This is a 78-year-old female with significant past medical history of HTN, HLD, CKD stage III, morbid obesity and anxiety who presents to ED secondary to right ankle pain. She was getting on a stepladder trying to clean her kitchen cupboards whenever she fell off and landed on her right leg. XR: Comminuted, displaced fractures of the proximal fibular metaphysis and tibial metadiaphysis Fall from step ladder Right Tibial and fibula fracture, closed, comminuted, displaced Patient presented after a fall. Tibia/fibula x-ray shows comminuted, displaced fractures of the proximal fibular metaphysis and tibial metadiaphysis. Other imagings including CT head, lumbar spine, hip and pelvic x-ray do not show any acute findings. Knee CT shows comminuted and displaced fractures involving proximal tibia and fibula. Also, proximal tibial fractures involve the articular surfaces of the medial and lateral tibial plateaus Status post ORIF of right tibia fracture on March 13, 2023 Pain control on current medication. DVT prophylaxis with aspirin twice daily was started. Kept on hold today due to concern for upper GI bleed. Need to keep her knee immobilized for the next 2 weeks. Strict nonweightbearing for the next 6 months to 6 weeks. Acute blood loss anemia Possible upper GI bleed Patient has hematoma in right lower leg of 5.1 into 2.8 cm. Hemoglobin down trended from 12.9 on admission to 6.8 BUN markedly elevated Patient denies any gross bleeding Fecal occult positive Continue on IV Protonix twice daily 1 unit of packed RBC ordered. Transfuse if hemoglobin is less than 7. Complex scenario; patient needs anticoagulation or aspirin for DVT prophylaxis given her recent surgery. GI planning for endoscopy tomorrow. Clear liquid diet for today. N.p.o. from midnight. Will start LR at 80 cc/h at midnight VENICE on CKD Creatinine peaked at 2. 2 Suspect prerenal due to low blood pressure. Renal ultrasound negative for hydronephrosis Creatinine downtrending with IV fluids HLD chronic stable continue statin Morbid obesity, BMI 36 encourage diet lifestyle mod when able FULL CODE DVT ppx: Aspirin twice daily PCP:Dr. Newhouser Dispo: Patient admitted to medical floor after Tibial and fibula fracture. Status post surgery. Concern of acute blood loss anemia and upper GI bleed. Possible endoscopy tomorrow Time spent evaluating patient, direct bedside care, chart review, placing orders, interpretation of diagnostic studies, discussion with patient as well as other required patient management activities is 60 minutes Please note the above document was generated using voice recognition software. It may contain grammatical, syntax or spelling errors. Any formal questions or concerns about the content, text or information contained within the body of this dictation should be directly addressed to the provider for clarification Admission and Anticipated Discharge Date Admission Date: March 11, 2023 Subjective Patient seen and examined at bedside. She reports that she is feeling better. No complaint of nausea or vomiting. Review of Systems Review of Systems: All systems reviewed & are unremarkable except as noted in Subjective Physical Exam Physical Exam: Constitutional: Alert oriented x 3; not in distress. Respiratory: Bilateral basilar breath sound Cardiovascular: RRR, no murmur, no edema, obese lower ext Vessels: no JVD or carotid bruit Abdomen: Soft nontender. Musculoskeletal: brace present on right leg. Able to move her toes Skin: no rashes, warm and dry normal turgor Neurologic: PERRL, EOMI, accommodation nl, no face palsy, no dysarthria CN's II-XI intact bilaterally and moves all extremities Psychiatric: A+Ox3, euthymic affect Results & Data Results & Data Vital Signs (Past 12 Hours) Vital Signs Temp Pulse Pulse Resp BP BP Pulse Ox 03/17/23 12:30 36.6 C 89 16 136/70 03/17/23 12:30 36.6 C 81 16 135/71 96 03/17/23 12:00 36.7 C 77 18 108/65 95 03/17/23 11:44 36.8 C 79 18 124/55 L 93 03/17/23 11:26 36.7 C 81 18 124/71 93 03/17/23 08:30 03/17/23 06:32 37.2 C 84 16 101/65 92 O2 Del Method 03/17/23 12:30 03/17/23 12:30 03/17/23 12:00 03/17/23 11:44 03/17/23 11:26 03/17/23 08:30 Room Air 03/17/23 06:32 Room Air (1) Fracture of right tibia and fibula Encounter type: initial encounter Fracture type: closed Qualified Code(s): S82.201A - Unspecified fracture of shaft of right tibia, initial encounter for closed fracture; S82.401A - Unspecified fracture of shaft of right fibula, initial encounter for closed fracture (2) Fall Encounter type: initial encounter Qualified Code(s): W19.XXXA - Unspecified fall, initial encounter (3) HTN (hypertension) Hypertension type: primary hypertension Qualified Code(s): I10 - Essential (primary) hypertension (5) Obesity Obesity type: due to excess calories Obesity classification: adult class 2 (BMI 35 - 39.9) Serious obesity comorbidity presence: with serious comorbidity Body mass index: BMI 35.0-35.9 Qualified Code(s): E66.01 - Morbid (severe) obesity due to excess calories; Z68.35 - Body mass index [BMI] 35.0-35.9, adult
--- NOTE | 2023-03-17 16:53 | Surgery Progress Note ---
Date of Service March 17, 2023 Assessment & Plan (1) Fracture of right tibia and fibula: Plan: 78-year-old female now 4 days out from ORIF of right proximal tibia fracture. Orthopedically she is doing well. Hemoglobin is quite low and I agree with the suspicion for GI bleed. Occult stools have been guaiac positive. She has not "lost much blood through her knee or from the fracture. She is neurologically intact. Plan: 1. DVT prophylaxis including teds, SCDs, and anticoagulation as per the primary service. It is really contraindicated to medically anticoagulated her at this time with this hemoglobin issue. 2. PT OT. Nonweightbearing. Nonweightbearing right leg. Knee immobilizer at all times. No knee range of motion at this point. She can do quad sets and straight leg raises. 3 pain control doing okay with current pain regimen. 4. Medical management as per the medicine service. 5. Disposition she is orthopedically okay for discharge anytime medically stable. Just needs routine wound care of the right leg with dressing changes daily. Knee immobilizer at all times. No knee range of motion. Nonweightbearing. Return visit in 2 to 3 weeks. (2) Acute blood loss anemia: Admission and Anticipated Discharge Date Admission Date: March 11, 2023 Subjective 78-year-old female postop day 4 from ORIF of right proximal tibia/tibial plateau fracture. She is doing well from orthopedic standpoint. Pain is controlled. Denies any chest pain or shortness of breath. Feel little bit better daily. Physical Exam Physical Exam: Physical examination reveals a pleasant elderly female. Awake alert and oriented sitting up in her bed. She looks comfortable. Examination of the right leg reveals leg to be well aligned. Knee immobilizer is in place. Dressings clean dry and intact and has just been changed. She can dorsiflex and plantarflex her foot appropriately. She is neurologically intact. Results & Data Vital Signs (Past 12 Hours) Vital Signs Temp Pulse Pulse Resp BP BP Pulse Ox 03/17/23 14:42 37.2 C 82 18 130/77 97 03/17/23 12:30 36.6 C 89 16 136/70 03/17/23 12:30 36.6 C 81 16 135/71 96 03/17/23 12:00 36.7 C 77 18 108/65 95 03/17/23 11:44 36.8 C 79 18 124/55 L 93 03/17/23 11:26 36.7 C 81 18 124/71 93 03/17/23 08:30 03/17/23 06:32 37.2 C 84 16 101/65 92 O2 Del Method 03/17/23 14:42 03/17/23 12:30 03/17/23 12:30 03/17/23 12:00 03/17/23 11:44 03/17/23 11:26 03/17/23 08:30 Room Air 03/17/23 06:32 Room Air Laboratory Results Hemoglobin is 6.8. Hematocrit is 20. Creatinine not back to baseline. PG Care Time/CCT Total # of Minutes Spent Total Time Spent with Patient: Total time spent is greater than 50% in coordination of care (as documented) at patient's floor/unit and/or counseling patient: Coding Level of Care Code 44235 Post Operative Follow-Up Diagnoses Closed fracture of right tibia and fibula, initial encounter S82.201A; S82.401A Encounter type: initial encounter Fracture type: closed Acute blood loss anemia D62 (1) Fracture of right tibia and fibula Encounter type: initial encounter Fracture type: closed Qualified Code(s): S82.201A - Unspecified fracture of shaft of right tibia, initial encounter for closed fracture; S82.401A - Unspecified fracture of shaft of right fibula, initial encounter for closed fracture
[2023-03-17] MEDS: SENNA 8.6 MG TAB PO SCH (20:08)
[2023-03-18] MEDS ORDERED: ACETAMINOPHEN 1,000 MG/100 ML VIAL IV PRN (03:22)
[2023-03-18 08:34] LABS: Basophils # (auto) 0.03 K/uL (0.00-0.20); Basophils % (auto) 0.3 %; Eosinophils # (auto) 0.16 K/uL (0.00-0.50); Eosinophils % (auto) 1.4 %; Hematocrit (blood only) 28.6 % (37.0-47.0); Hemoglobin 9.5 g/dl (12.0-16.0); Immature Granulocytes # (auto) 0.08 K/uL (0.01-0.20); Immature Granulocytes % (auto) 0.7 %; Lymphocytes # (auto) 0.78 K/uL (1.20-3.40); Lymphocytes % (auto) 6.6 %; Mean Corpuscular Hemoglobin 32.8 pg (25.0-34.0); Mean Corpuscular Hgb Conc 33.2 g/dL (32.0-36.0); Mean Corpuscular Volume 98.6 fL (80.0-100.0); Mean Platelet Volume 10.2 fL (9.4-12.4); Monocytes # (auto) 1.03 K/uL (0.11-0.59); Monocytes % (auto) 8.8 %; Neutrophils # (auto) 9.69 K/uL (1.40-6.50); Neutrophils % (auto) 82.2 %; Nucleated RBC # (auto) 0.03 K/uL (0.00-0.12); Nucleated RBC % (auto) 0.3 %; Platelet Count 253 K/uL (130-400); RDW Coefficient of Variation 13.5 % (11.5-14.5); RDW Standard Deviation 48.7 fL (36.4-46.3); White Blood Count 11.77 K/ul (4.8-10.8)
[2023-03-18] MEDS: DOCUSATE SODIUM 100 MG CAP PO SCH ×2 (08:44→19:57)
[2023-03-18] MEDS: ASCORBIC ACID 500 MG TAB PO SCH ×2 (08:44→16:02)
[2023-03-18] MEDS: PANTOprazole 40 MG in SYRINGE 0 ML IV SCH ×2 (08:45→19:56)
[2023-03-18 08:59] LABS: Albumin Globulin Ratio 0.9 (0.9-2); Albumin Level 2.9 gm/dl (3.4-5.0); BUN Creatinine Ratio 30.8 (10-20); Bilirubin,Total 1.3 mg/dl (0.2-1.0); Calcium 8.7 mg/dl (8.6-10.3); Creatinine Clr Calc Pharmacy 52.6 ml/min; Est GFR (Non-African American) 51.8 ml/min; Globulin 3.2 gm/dl (2.5-4.0); Potassium 5.2 mmol/L (3.5-5.1); Total Protein 6.1 gm/dl (6.0-8.3)
--- NOTE | 2023-03-18 09:18 | History & Physical Bridge Note ---
Date of Service March 18, 2023 History & Physical Bridge Note I have examined the patient, reviewed the History & Physical and in the interval since the performance of the History & Physical I have noted the following changes of clinical significance: no changes noted. Patient is a 78 year old female admitted with a declining Hgb/hct and heme positive stool in the setting of post-operative IV NSAID use s/p right tibula ORIF. She has been NPO and is agreeable with having EGD today. hgb 03/18/23 improved to 9.5. she denies any nausea, vomiting, heartburn, abdominal pain, chest pain, shortness of breath. Supervising Physician Co-Signing Physician Notes Agree with PROSPER Angela as above Abd: Soft, NT, ND, +BS Continue current therapy and supportive care Proceed with EGD.
[2023-03-18] MEDS: LACTATED RINGER'S 1,000 ML IV SCH (10:17)
[2023-03-18] MEDS: lisinopril 20 MG TAB PO SCH (10:31)
--- NOTE | 2023-03-18 12:08 | Anesthesiology Consultation ---
Date of Service March 18, 2023 Assessment & Plan Chart Review Chart Review: Acceptable Risk for Surgery Consults Requested none History Surgery Operation Date: 03/13/23 12:00 Proposed Procedures p Right Tibia Fracture Open Reduction Internal Fixation - Jorge Isaac MD Operation Date: 03/18/23 16:30 Proposed Procedures p Esophagogastroduodenoscopy Dr Howard - Balaji Howard, DO Height/Weight Height: 5 ft 5 in Weight: 98.3 kg Allergies Allergy/AdvReac Type Severity Reaction Status Date / Time aspirin AdvReac Unknown Nausea Verified 03/18/23 12:01 Medications Home Medications Medication Instructions Recorded Confirmed Last Taken aspirin 81 mg tablet,delayed 81 mg PO QAM 01/31/18 03/11/23 01/31/18 release lisinopril 20 1 tab PO DAILY 01/31/18 03/11/23 01/31/18 mg-hydrochlorothiazide 25 mg tablet lorazepam 0.5 mg tablet 0.5 mg PO TID PRN Anxiety 01/31/18 03/11/23 01/30/18 rosuvastatin 5 mg tablet 5 mg PO DAILY 09/15/19 03/11/23 Unknown clotrimazole-betamethasone 1 1 applic topical .APPLY SPARINGLY 01/18/20 03/11/23 Unknown %-0.05 % topical cream TO AFFECTED AREA(S) 3 TIMES A DAY for 7-10 days as needed PRN Other magnesium 1 tab PO DAILY 03/11/23 03/11/23 Unknown Active Medications Generic Name Dose Route Start Last Admin Trade Name Freq PRN Reason Stop Dose Admin Acetaminophen 1,000 mg 03/13/23 22:00 03/17/23 21:44 Acetaminophen 500 Mg Tab PO 04/12/23 21:59 1,000 mg Q8 [facility] Administration Ascorbic Acid 500 mg 03/13/23 17:00 03/18/23 08:44 Ascorbic Acid 500 Mg Tab PO 04/12/23 16:59 Not Given BIDM MORRIS Aspirin 81 mg 03/14/23 09:15 03/17/23 08:22 Aspirin 81 Mg Ectab PO 04/13/23 09:14 Not Given BID MORRIS Docusate Sodium 100 mg 03/13/23 21:00 03/18/23 08:44 Docusate Sodium 100 Mg Cap PO 04/12/23 20:59 Not Given BID MORRIS Pantoprazole Sodium 40 mg/ 10 mls @ 5 mls/min 03/16/23 09:00 03/18/23 08:45 Syringe IV 04/15/23 08:59 5 mls/min BID MORRIS Administration Lactated Ringer's 1,000 mls @ 80 mls/hr 03/18/23 00:00 03/18/23 10:17 Lr IV 04/17/23 00:00 80 mls/hr .[id number] MORRIS Administration Acetaminophen 1,000 mg in 100 mls @ 400 mls/hr 03/18/23 03:22 03/18/23 10:50 Ofirmev IV 03/21/23 03:21 Infused Q8H PRN Infusion Pain or Fever Lisinopril 20 mg 03/12/23 09:00 03/18/23 10:31 Lisinopril 20 Mg Tab PO 04/11/23 08:59 Not Given QAM MORRIS Multivitamins 1 tab 03/14/23 09:00 03/17/23 08:44 Multivitamin Tab PO 04/13/23 08:59 1 tab QAM MORRIS Administration Ondansetron HCl 4 mg 03/13/23 16:10 03/15/23 07:49 Ondansetron Inj 2 Mg/Ml 2 Ml Vial IV 04/12/23 16:09 4 mg Q6H PRN Administration Nausea And Vomiting Oxycodone HCl 5 - 10 mg 03/13/23 16:10 03/17/23 05:56 Oxycodone Hcl Ir 5 Mg Tab (Immediate Release) PO 03/27/23 16:09 10 mg Q6H PRN Administration Pain or Pre PT Rosuvastatin Calcium 5 mg 03/12/23 09:00 03/17/23 08:45 Rosuvastatin Calcium 5 Mg Tab PO 04/11/23 08:59 5 mg DAILY MORRIS Administration Sennosides 17.2 mg 03/13/23 21:00 03/17/23 20:08 Senna 8.6 Mg Tab PO 04/12/23 20:59 17.2 mg HS MORRIS Administration NPO Date Last Intake of Fluids: 03/12/23 Time Last Intake of Fluids: 21:00 Last Intake of Fluids Comment: sips of water with pills Date Last Intake of Solids: 03/12/23 Time Last Intake of Solids: 17:00 Last Intake of Solids Comment: prior to arrival to floor at 2039 Past Medical History Medical History (Updated 03/17/23 @ 09:48 by BEN Gibbs) Obesity High cholesterol HTN (hypertension) Past Family History Family History Other No pertinent family history Denies family history of Ovarian cancer Breast cancer Colorectal cancer Past Surgical History Surgical History History of hip surgery Hx of tubal ligation Social History Smoking Status: Never smoker Do You Dip or Chew Tobacco: No Hx Alcohol Use: No Hx Substance Use: No substance use type: prescription drug Review of Systems Constitutional: as per Subjective / HPI Respiratory: as per Subjective / HPI Cardiovascular: as per Subjective / HPI Gastrointestinal: as per Subjective / HPI Physical Exam Vital Signs Last Vital Signs Temp 37 C 03/18/23 06:38 Pulse 86 03/18/23 06:38 Resp 16 03/18/23 06:38 BP 142/77 H 03/18/23 06:38 Pulse Ox 95 03/18/23 06:38 O2 Del Method Room Air 03/18/23 06:38 O2 Flow Rate 1 03/13/23 17:10 Constitutional WD/WN, vitals as above no acute distress Eyes EOM intact bilaterally ENMT Mouth: + edentulous; no dentition abnormality Thyromental Distance: > or= 3.5 Finger Breadths Mallampati Class: II Neck normal visual inspection Respiratory normal respiratory effort, lungs clear to auscultation normal respiratory effort; no respiratory distress Auscultation: lungs clear to auscultation bilaterally Cardiovascular Rate/Rhythm: regular rate and regular rhythm Heart Sounds: + murmur Gastrointestinal (Abdomen) Inspection/Auscultation: abdomen normal to inspection and normal bowel sounds Percussion/Palpation: abdomen soft; abdomen nontender, no guarding and abdomen not rigid Musculoskeletal Spine: normal cervical ROM Psychiatric A+Ox3, euthymic affect Orientation: alert and oriented x 3 Testing Laboratory Results 03/18/23 07:20 03/18/23 07:20 PT 10.7 Seconds (9.0-12.0) 03/11/23 20:08 INR 1.0 (0.9-1.1) 03/11/23 20:08 APTT 25 Seconds (21-31) 03/11/23 20:08 Urine Color Dark Yellow 03/15/23 10:15 Urine Appearance Clear (Clear) 03/15/23 10:15 Urine pH 5.0 (4.5-7.5) 03/15/23 10:15 Ur Specific [place] 1.026 (1.000-1.030) 03/15/23 10:15 Urine Protein Negative (Negative) 03/15/23 10:15 Urine Glucose (UA) Negative (Negative) 03/15/23 10:15 Urine Ketones Trace (Negative) H 03/15/23 10:15 Urine Nitrite Positive (Negative) A 03/15/23 10:15 Ur Leukocyte Esterase 1+ (Negative) H 03/15/23 10:15 Urine WBC (Auto) 1-5 /hpf (0-5) 03/15/23 10:15 Urine RBC (Auto) 5-10 /hpf (0-4) H 03/15/23 10:15 U Hyaline Cast (Auto) 1-5 /lpf (0-5) 03/15/23 10:15 U Epithel Cells (Auto) >30 /lpf (0-5) H 03/15/23 10:15 Urine Bacteria (Auto) Negative (Negative) 03/15/23 10:15 Blood Type A Positive 03/17/23 09:44 Antibody Screen NEGATIVE 03/17/23 09:44 Electrocardiogram Date: 03/11/23 Sinus tachycardia, rate 105 bpm Septal infarct , age undetermined Abnormal ECG When compared with ECG of 13-OCT-2019 19:15, Premature ventricular complexes are no longer Present Septal infarct is now Present Nonspecific T wave abnormality now evident in Anterior leads Chest X-Ray Date: 03/11/23 Findings: + NAD Echocardiogram Date: 11/29/19 LV is hyperdynamic RVSP is normal No significant valvular heart disease
[2023-03-18] MEDS ORDERED: PROPOFOL IV EMULSION 10 MG/ML 20 ML VIAL IV ONE (12:25)
[2023-03-18] MEDS ORDERED: LIDOCAINE 2% 2 ML VIAL/AMP(20MG/ML) INFIL ONE (12:25)
--- NOTE | 2023-03-18 13:00 | GI REPORT ---
Patient Name: Basilia Benson Procedure Date: 03/18/2023 12:31 PM Date of : 1945 Admit Type: Inpatient Age: 78 Gender: Female Attending MD: Balaji Howard DO, Procedure: Upper GI endoscopy Providers: Balaji Howard DO Referring MD: Chrissy Kwon MD Indications: Iron deficiency anemia due to suspected upper gastrointestinal bleeding, Heme positive stool Medicines: Monitored Anesthesia Care Complications: No immediate complications. Estimated Blood Loss: Estimated blood loss: none. Procedure: Pre-Anesthesia Assessment: - Prior to the procedure, a History and Physical was performed, and patient medications and allergies were reviewed. The patient's tolerance of previous anesthesia was also reviewed. The risks and benefits of the procedure and the sedation options and risks were discussed with the patient. All questions were answered, and informed consent was obtained. Prior Anticoagulants: The patient has taken no anticoagulant or antiplatelet agents except for aspirin. ASA Grade Assessment: III - A patient with severe systemic disease. After reviewing the risks and benefits, the patient was deemed in satisfactory condition to undergo the procedure. After obtaining informed consent, the endoscope was passed under direct vision. Throughout the procedure, the patient's blood pressure, pulse, and oxygen saturations were monitored continuously. The Endoscope was introduced through the mouth, and advanced to the second part of duodenum. The upper GI endoscopy was accomplished without difficulty. The patient tolerated the procedure well. Findings: The esophagus was normal. The stomach was normal. The examined duodenum was normal. Impression: - Normal esophagus. - Normal stomach. - Normal examined duodenum. - No specimens collected. Recommendation: - Return patient to hospital [facility] for ongoing care. - Advance diet as tolerated. - Continue present medications. - Perform a colonoscopy at appointment to be scheduled as an outpatient. - Consider CT abd/pelvis if symptoms worsen Balaji Howard DO 03/18/2023 12:59:30 PM This report has been signed electronically. Note Initiated On: 03/18/2023 12:31 PM Number of Addenda: 0 I attest to the content of the Intraoperative Record and orders documented therein, exceptions below {[id number]}
--- NOTE | 2023-03-18 13:35 | Anesthesiology Progress Note ---
Date of Service March 18, 2023 Anesthesia Post Procedure Vital Signs Vital Signs: Temp Pulse Pulse Resp BP BP Pulse Ox 03/18/23 13:25 82 20 137/71 96 03/18/23 13:11 82 16 135/66 94 03/18/23 12:56 80 16 121/51 L 96 03/18/23 12:03 36.6 C 85 20 145/71 H 92 03/18/23 06:38 37 C 86 16 142/77 H 95 03/17/23 19:33 37 C 87 16 132/60 95 03/17/23 14:42 37.2 C 82 18 130/77 97 O2 Del Method 03/18/23 13:25 Room Air 03/18/23 13:11 Room Air 03/18/23 12:56 Room Air 03/18/23 12:03 Room Air 03/18/23 06:38 Room Air 03/17/23 19:33 Room Air 03/17/23 14:42 Pain Intensity Left Knee: Pain Intensity: 8 Right Leg: Pain Intensity: 3 Transfer of Care Handoff Completed per policy Notes Mental Status: alert / awake / arousable Patient Amnestic to Procedure: Yes Nausea / Vomiting: adequately controlled Pain: adequately controlled Airway Patency, RR, SpO2: stable & adequate BP & HR: stable & adequate Hydration State: stable & adequate Anesthetic Complications: no major complications apparent and Pt Satisfied with anesthetic care
[2023-03-18] MEDS: MULTIVITAMIN TAB PO SCH (13:59)
[2023-03-18] MEDS: ROSUVASTATIN CALCIUM 5 MG TAB PO SCH (13:59)
--- NOTE | 2023-03-18 14:17 | Hospitalist Progress Note ---
Date of Service March 18, 2023 Assessment & Plan (1) Fracture of right tibia and fibula: (2) Fall: (3) HTN (hypertension): (4) High cholesterol: (5) Obesity: Plan This is a 78-year-old female with significant past medical history of HTN, HLD, CKD stage III, morbid obesity and anxiety who presents to ED secondary to right ankle pain. XR: Comminuted, displaced fractures of the proximal fibular metaphysis and tibial metadiaphysis Fall from step ladder Right Tibial and fibula fracture, closed, comminuted, displaced Patient presented after a fall. Tibia/fibula x-ray showed comminuted, displaced fractures of the proximal fibular metaphysis and tibial metadiaphysis. Other imaging including CT head, lumbar spine, hip and pelvic x-ray do not show any acute findings. Knee CT shows comminuted and displaced fractures involving proximal tibia and fibula. Also, proximal tibial fractures involve the articular surfaces of the medial and lateral tibial plateaus Status post ORIF of right tibia fracture on March 13, 2023 Pain control DVT prophylaxis with aspirin currently on hold due to concern for upper GI bleed. Advised to keep her knee immobilized for the next 2 weeks. Strict nonweightbearing for the next 6 months to 6 weeks. Acute blood loss anemia Possible upper GI bleed Patient has hematoma in right lower leg Hemoglobin down trended from 12.9 on admission to 6.8, s/p transfusion of 1U BUN markedly elevated Patient denies any gross bleeding Fecal occult positive Continue on IV Protonix twice daily EGD pending Vision Loss Pt reporting sudden vision loss in L eye starting the day before MRI brain ordered Hyperkalemia Potassium elevated Holding ROBBY Monitor with AM labs VENICE on CKD Creatinine peaked at 2. 2 Suspect prerenal due to low blood pressure. Renal ultrasound negative for hydronephrosis Creatinine downtrending with IV fluids HLD chronic stable continue statin Morbid obesity, BMI 36 encourage diet lifestyle mod when able FULL CODE DVT ppx: Aspirin twice daily currently on hold Admission and Anticipated Discharge Date Admission Date: March 11, 2023 Subjective Pt states that she has been having left eye vision loss that started yesterday. Denies headache. Was awaiting EGD, stating she wants to eat. Review of Systems Review of Systems: All systems reviewed & are unremarkable except as noted in Subjective Physical Exam Physical Exam: General: Alert, oriented. No acute distress Skin: bruise on R arm Psych: Appropriate mood and affect Neuro: L sided vision loss HEENT: NC/AT CV: RRR Resp: Breath sounds clear bilaterally, no increased effort of breathing. Abdomen: Soft, nontender, nondistended. Extremities: extremity brace Results & Data Results & Data Vital Signs (Past 12 Hours) Vital Signs Temp Pulse Resp BP Pulse Ox O2 Del Method 03/18/23 13:50 36.7 C 79 18 147/69 H 96 Room Air 03/18/23 13:25 82 20 137/71 96 Room Air 03/18/23 13:11 82 16 135/66 94 Room Air 03/18/23 12:56 80 16 121/51 L 96 Room Air 03/18/23 12:03 36.6 C 85 20 145/71 H 92 Room Air 03/18/23 06:38 37 C 86 16 142/77 H 95 Room Air (1) Fracture of right tibia and fibula Encounter type: initial encounter Fracture type: closed Qualified Code(s): S82.201A - Unspecified fracture of shaft of right tibia, initial encounter for closed fracture; S82.401A - Unspecified fracture of shaft of right fibula, initial encounter for closed fracture (2) Fall Encounter type: initial encounter Qualified Code(s): W19.XXXA - Unspecified fall, initial encounter (3) HTN (hypertension) Hypertension type: primary hypertension Qualified Code(s): I10 - Essential (primary) hypertension (5) Obesity Body mass index: BMI 35.0-35.9 Obesity classification: adult class 2 (BMI 35 - 39.9) Obesity type: due to excess calories Serious obesity comorbidity presence: with serious comorbidity Qualified Code(s): E66.01 - Morbid (severe) obesity due to excess calories; Z68.35 - Body mass index [BMI] 35.0-35.9, adult
--- NOTE | 2023-03-18 15:55 | Surgery Progress Note ---
Date of Service March 18, 2023 Assessment & Plan (1) Fracture of right tibia and fibula: Plan: 78-year-old female now 5 days out from ORIF of a proximal tib-fib fracture. Orthopedically she is doing fine. She is going to see for serous drainage for quite some time. Her hemoglobin is now improved and looks to be stable. Creatinine is improved. She is to have an EGD today yet. Plan: 1. PT OT. As she is nonweightbearing on this right leg. No knee range of motion. 2. DVT prophylaxis. Thigh-high teds and SCDs. Chemical prophylaxis only if indicated and medically it. Concern is a GI bleed. She is currently undergoing evaluation of this. 3. Pain control doing okay with current pain regimen. 4. Medical management as per the medicine service. 5. Disposition. She is orthopedically okay for discharge anytime medically stable. She just needs to remember to do wound care to the right leg. Knee immobilizer at all times. No knee range of motion. Nonweightbearing right leg for the next 2 to 4 weeks. Any orthopedic questions can direct pa [phone] Admission and Anticipated Discharge Date Admission Date: March 11, 2023 Subjective 78-year-old female postop day 5 from ORIF of a right proximal tib-fib fracture. He is doing pretty well. Just seems to get a little better daily. The pain is a little bit less. She is mobilizing little bit more. Denies any chest pain or shortness of breath. Physical Exam Physical Exam: Physical examination was a pleasant elderly female. Examination of the right leg reveals leg to be well aligned. Her incision is well-approximated. She has she got copious amounts of serous drainage from her edema. She can dorsiflex and plantarflex her foot appropriately. She is neurologically intact. Results & Data Vital Signs (Past 12 Hours) Vital Signs Temp Pulse Resp BP Pulse Ox O2 Del Method 03/18/23 14:45 36.5 C 99 H 18 151/84 H 97 Room Air 03/18/23 14:15 36.6 C 82 18 146/62 H 96 Room Air 03/18/23 13:50 36.7 C 79 18 147/69 H 96 Room Air 03/18/23 13:25 82 20 137/71 96 Room Air 03/18/23 13:11 82 16 135/66 94 Room Air 03/18/23 12:56 80 16 121/51 L 96 Room Air 03/18/23 12:03 36.6 C 85 20 145/71 H 92 Room Air 03/18/23 06:38 37 C 86 16 142/77 H 95 Room Air Laboratory Results Hemoglobin 9.5. Hematocrit 20.6. Electrolytes are stable. Creatinine improved. PG Care Time/CCT Total # of Minutes Spent Total Time Spent with Patient: Total time spent is greater than 50% in coordination of care (as documented) at patient's floor/unit and/or counseling patient: Coding Level of Care Code 08137 Post Operative Follow-Up Diagnoses Closed fracture of right tibia and fibula, initial encounter S82.201A; S82.401A Encounter type: initial encounter Fracture type: closed (1) Fracture of right tibia and fibula Encounter type: initial encounter Fracture type: closed Qualified Code(s): S82.201A - Unspecified fracture of shaft of right tibia, initial encounter for closed fracture; S82.401A - Unspecified fracture of shaft of right fibula, initial encounter for closed fracture
[2023-03-18] MEDS: oxyCODONE HCL IR 5 MG TAB (IMMEDIATE RELEASE) PO PRN (15:59)
[2023-03-18] MEDS: SENNA 8.6 MG TAB PO SCH (19:57)
--- NOTE | 2023-03-18 23:14 | Magnetic Resonance Report ---
Exam(s): MRI HEAD Without Contrast EXAM: MR Head Without Intravenous Contrast CLINICAL HISTORY: Reason for exam: left sided vision loss. TECHNIQUE: Magnetic resonance images of the head/brain without intravenous contrast in multiple planes. COMPARISON: Comparison made to prior head CT from March 11, 2023. FINDINGS: Brain: There is a remote ischemic injury of the left capsule. There are tiny remote ischemic injuries of the cerebellum. No mass. No hemorrhage. No acute infarct. The flow voids of the base of the brain are intact. Ventricles: Unremarkable. No ventriculomegaly. Bones/joints: Ankylosis of C3 and C4, and C5 and C6. No acute fracture. Sinuses: Chronic ethmoid sinusitis. No acute sinusitis. Mastoid air cells: There is a tiny amount of fluid in the right mastoid air cells. No mastoid effusion. Orbits: Bilateral lens replacements. IMPRESSION: No evidence of acute intercranial pathology. Electronically signed by: Clemencia Patten MD 03/18/23 23:14 PM
[2023-03-19] MEDS: LACTATED RINGER'S 1,000 ML IV SCH (01:32)
[2023-03-19] MEDS: oxyCODONE HCL IR 5 MG TAB (IMMEDIATE RELEASE) PO PRN ×3 (05:12→20:01)
[2023-03-19 07:06] LABS: Basophils # (auto) 0.03 K/uL (0.00-0.20); Basophils % (auto) 0.4 %; Eosinophils # (auto) 0.16 K/uL (0.00-0.50); Eosinophils % (auto) 2.1 %; Hematocrit (blood only) 25.2 % (37.0-47.0); Hemoglobin 8.2 g/dl (12.0-16.0); Immature Granulocytes % (auto) 1.3 %; Lymphocytes # (auto) 0.84 K/uL (1.20-3.40); Lymphocytes % (auto) 11.1 %; Mean Corpuscular Hemoglobin 32.5 pg (25.0-34.0); Mean Corpuscular Hgb Conc 32.5 g/dL (32.0-36.0); Mean Platelet Volume 9.6 fL (9.4-12.4); Monocytes # (auto) 0.88 K/uL (0.11-0.59); Monocytes % (auto) 11.6 %; Neutrophils # (auto) 5.56 K/uL (1.40-6.50); Neutrophils % (auto) 73.5 %; Nucleated RBC # (auto) 0.03 K/uL (0.00-0.12); Nucleated RBC % (auto) 0.4 %; Platelet Count 243 K/uL (130-400); RDW Coefficient of Variation 13.4 % (11.5-14.5); RDW Standard Deviation 49.6 fL (36.4-46.3); Red Blood Count 2.52 M/uL (4.20-5.40); White Blood Count 7.57 K/ul (4.8-10.8)
[2023-03-19 07:25] LABS: Albumin Globulin Ratio 0.9 (0.9-2); Albumin Level 2.5 gm/dl (3.4-5.0); BUN Creatinine Ratio 30.4 (10-20); Bilirubin,Total 1.2 mg/dl (0.2-1.0); Calcium 8.1 mg/dl (8.6-10.3); Creatinine Clr Calc Pharmacy 59.4 ml/min; Est GFR (African American) 69.6 ml/min; Est GFR (Non-African American) 60.1 ml/min; Globulin 2.8 gm/dl (2.5-4.0); Magnesium 1.8 mg/dl (1.7-2.4); Phosphorus 2.8 mg/dl (2.5-4.9); Potassium 4.9 mmol/L (3.5-5.1); Total Protein 5.3 gm/dl (6.0-8.3)
--- NOTE | 2023-03-19 07:50 | Orthopedic Progress Note ---
Date of Service March 19, 2023 Assessment & Plan (1) Fracture of right tibia and fibula: Plan: 1. PT OT. As she is nonweightbearing on this right leg. No knee range of motion. 2. DVT prophylaxis. Thigh-high teds and SCDs. Chemical prophylaxis only if indicated and medically it. Concern is a GI bleed. She is currently undergoing evaluation of this. 3. Pain control doing okay with current pain regimen. 4. Medical management as per the medicine service. 5. Disposition. She is orthopedically okay for discharge anytime medically stable. She just needs to remember to do wound care to the right leg. Knee immobilizer at all times. No knee range of motion. Nonweightbearing right leg for the next 2 to 4 weeks. Any orthopedic questions can direct to [facility] orthopedics or Dr. Isaac himself. Subjective . Basilia was seen and evaluated at bedside resting comfortably no apparent distress. She is now postop day 6 from an ORIF of a right proximal tib-fib fracture. From an orthopedic standpoint, she is doing quite well. Her dressing s were changed yesterday with no concerns. She notes that her pain is pretty controlled to the right lower extremity. She denies any other concerns. Review of Systems All systems reviewed & are unremarkable except as noted in HPI & below. Physical Exam . On physical examination of the right leg, leg position reveals to be well aligned. Her incision is well-approximated. Her dressings are clean, dry, and intact. She can dorsiflex and plantarflex her foot appropriately. She is neurologically intact. Results & Data Results & Data Laboratory Results . Diagnostic Findings . PG Care Time/CCT Total # of Minutes Spent Total Time Spent with Patient: Total time spent is greater than 50% in coordination of care (as documented) at patient's floor/unit and/or counseling patient: Coding Level of Care Code 17604 Post Operative Follow-Up Diagnoses Closed fracture of right tibia and fibula, initial encounter S82.201A; S82.401A Encounter type: initial encounter Fracture type: closed (1) Fracture of right tibia and fibula Encounter type: initial encounter Fracture type: closed Qualified Code(s): S82.201A - Unspecified fracture of shaft of right tibia, initial encounter for closed fracture; S82.401A - Unspecified fracture of shaft of right fibula, initial encounter for closed fracture
[2023-03-19] MEDS: MULTIVITAMIN TAB PO SCH (08:12)
[2023-03-19] MEDS: ROSUVASTATIN CALCIUM 5 MG TAB PO SCH (08:12)
[2023-03-19] MEDS: DOCUSATE SODIUM 100 MG CAP PO SCH ×2 (08:13→20:02)
[2023-03-19] MEDS: PANTOprazole 40 MG in SYRINGE 0 ML IV SCH ×2 (08:13→20:03)
[2023-03-19] MEDS: ASCORBIC ACID 500 MG TAB PO SCH ×2 (08:13→17:19)
--- NOTE | 2023-03-19 16:56 | Hospitalist Progress Note ---
Date of Service March 19, 2023 Assessment & Plan (1) Fracture of right tibia and fibula: (2) HTN (hypertension): (3) High cholesterol: (4) Obesity: Plan This is a 78-year-old female with significant past medical history of HTN, HLD, CKD stage III, morbid obesity and anxiety who presents to ED secondary to right ankle pain. XR: Comminuted, displaced fractures of the proximal fibular metaphysis and tibial metadiaphysis Fall from step ladder Right Tibial and fibula fracture, closed, comminuted, displaced Patient presented after a fall. Tibia/fibula x-ray showed comminuted, displaced fractures of the proximal fibular metaphysis and tibial metadiaphysis. Other imaging including CT head, lumbar spine, hip and pelvic x-ray do not show any acute findings. Knee CT shows comminuted and displaced fractures involving proximal tibia and fibula. Also, proximal tibial fractures involve the articular surfaces of the medial and lateral tibial plateaus Status post ORIF of right tibia fracture on March 13, 2023 Okay for discharge per ortho. Instructions: Knee immobilizer at all times. No knee range of motion. Nonweightbearing right leg for the next 2-4 weeks. Any orthopedic questions can direct to [facility] orthopedics or Dr. Isaac himself Pain control DVT prophylaxis with aspirin currently on hold due to concern for upper GI bleed. Acute blood loss anemia Possible upper GI bleed Patient has hematoma in right lower leg Hemoglobin down trended from 12.9 on admission to 6.8, s/p transfusion of 1U with improved hgb to 8.2 Patient denies any gross bleeding, Fecal occult positive Continue on IV Protonix twice daily EGD negative Vision Loss Pt reporting sudden vision loss in L eye starting the day before MRI brain without evidence of acute intracranial pathology Hyperkalemia Potassium elevated Holding ROBBY for now VENICE on CKD - resolved Creatinine peaked at 2. 2 Suspect prerenal due to low blood pressure, robby held Renal ultrasound negative for hydronephrosis Creatinine downtrending with IV fluids HLD chronic stable continue statin Morbid obesity, BMI 36 encourage diet lifestyle mod when able FULL CODE DVT ppx: Aspirin twice daily currently on hold Planning on dc to [place] for rehab tomorrow if remains medically stable Admission and Anticipated Discharge Date Admission Date: March 11, 2023 Supervising Physician Co-Signing Physician Notes Pt seen and examined by myself, Chrissy Kwon MD on the day of service. Care was coordinated with Sarika Isaac PA-C. 78yoF with right tib-fib fracture. Pain controlled. Concerned about her left eye, though vision improving. Declines further workup with Head and neck CTA, states she will follow up with Dr. conroy. Denies Hx of CVA in the past indicated by MRI brain. Adamantly declines further workup, stating she has had too much done already. Otherwise as above. Subjective Seen and examined today in follow-up for tib-fib fracture. Pain is controlled in right lower extremity. Denies any other acute events overnight. Denies any other issues with vision overnight. No fever, chills, lightheadedness, headache, chest pain, shortness of breath, nausea, vomiting, abdominal pain, dysuria, diarrhea or constipation. Review of Systems Review of Systems: At least ten systems reviewed and negative except as noted in the HPI. Physical Exam Physical Exam: Gen: WD/WN, NAD, resting in bed, A&Ox3 HEENT: Normocephalic, atraumatic, conjunctivae moist, sclerae anicteric, mucous membranes moist Lung: Clear to Auscultation bilaterally, no wheezes/rales/rhonchi Heart: Regular rate, regular rhythm, no murmurs, rubs, or gallops Abdomen: Soft, NT, ND +BS x 4 Extremities: RLE with brace in place Skin: Warm, no rash, bruising R arm Results & Data Results & Data Vital Signs (Past 12 Hours) Vital Signs Temp Pulse Resp BP Pulse Ox O2 Del Method 03/19/23 15:15 36.7 C 88 18 154/75 H 96 Room Air 03/19/23 08:58 37.2 C 86 16 160/71 H 94 Room Air Laboratory Results Short CBC 03/19/23 Range/Units 06:16 WBC 7.57 (4.8-10.8) K/ul Hgb 8.2 L (12.0-16.0) g/dl Hct 25.2 L (37.0-47.0) % Plt Count 243 (130-400) K/uL BMP 03/19/23 06:16 Sodium 136 Potassium 4.9 Chloride 106 Carbon Dioxide 25 BUN 28 H Creatinine 0.92 Glucose 104 H Calcium 8.1 L Liver Function 03/19/23 Range/Units 06:16 Total Bilirubin 1.2 H (0.2-1.0) mg/dl AST 22 (13-39) U/L ALT 14 (7-52) U/L Alkaline Phosphatase 77 (34-104) U/L Albumin 2.5 L (3.4-5.0) gm/dl Diagnostic Findings Cervical Spine CT 03/11/23 15:30 CT cervical spine wo con CLINICAL HISTORY: Trauma TECHNIQUE: Multidetector row helical CT of the cervical spine was performed without administration of intravenous contrast. Coronal and sagittal reformations were obtained. Automated dose lowering techniques and/or adjustment according to patient size were utilized for this exam. Comparison: Comparison is made to CT soft tissue neck 10/13/2019 FINDINGS: No acute fractures or subluxations are identified. Degenerative changes are seen in the visualized spine. The alignment is normal. Biapical scarring is seen in the lungs. IMPRESSION: Degenerative changes without evidence of acute bony injury. ACT 112: Negative or not required by law. Electronically signed by: John Wallis M.D. 03/11/2023 4:58 PM Elbow X-Ray 03/11/23 15:30 XR elbow RT min 3V routine CLINICAL HISTORY: Trauma. Fall. Right elbow pain. COMPARISON STUDY: None. FINDINGS: No fracture or dislocation within the right elbow. Soft tissues are unremarkable. No elbow effusion. No radiopaque foreign bodies. IMPRESSION: No fracture or dislocation within the right elbow. ACT 112: Negative or not required by law. Electronically signed by: Baltazar Mendez M.D. 03/11/2023 4:[address] 03/11/23 15:30 CT head/brain wo con CLINICAL HISTORY: Trauma Technique: Contiguous axial CT images of the head were acquired from the base of the skull to the vertex without intravenous contrast administration. Images were viewed in brain, subdural and bone windows. Automated dose lowering techniques and/or adjustment according to patient size were utilized for this exam. Comparison: None available at the time of this dictation. Findings: The ventricles, basal cisterns, and cerebral sulci are normal. There is no acute intracranial hemorrhage or evidence of acute territorial infarction. Neither mass effect, shift of the midline structures, nor abnormal extra-axial fluid collections are shown. ENCEPHALOMALACIA IN THE LEFT BASAL GANGLIA LIKELY CORRESPONDS TO A PRIOR LACUNAR INFARCT. Imaged portions of the paranasal sinuses and mastoid air cells are clear. The orbits appear normal. There are no acute fractures of the calvaria or scalp swelling. Impression: No acute intracranial hemorrhage, no evidence of acute territorial infarction or other acute intracranial disease process. ACT 112: Negative or not required by law. Electronically signed by: John Wallis M.D. 03/11/2023 4:52 PM Knee X-Ray 03/11/23 15:30 XR knee RT 3V, XR tibia fibula RT 2V, XR ankle RT min 3V routine CLINICAL HISTORY: Trauma TECHNIQUE: 2 views of the right knee were obtained. 2 views of the right tibia and fibula were obtained. 3 views of the ankle were obtained. Comparison: None available at the time of this dictation. FINDINGS: Comminuted, mildly displaced fractures of the proximal fibular metaphysis and tibial metadiaphysis. Degenerative changes are seen in the knee joint. No joint effusion is seen. Soft tissue swelling is seen throughout the lower extremity and in the ankle. IMPRESSION: Comminuted, displaced fractures of the proximal fibular metaphysis and tibial metadiaphysis. No definite articular involvement. ACT 112: Negative or not required by law. Electronically signed by: John Wallis M.D. 03/11/2023 4:[address] 03/11/23 15:30 CT lumbar spine wo con CLINICAL HISTORY: Trauma TECHNIQUE: Multidetector row helical CT of the lumbar spine was performed without administration of intravenous contrast. Coronal and sagittal reformations were obtained. Automated dose lowering techniques and/or adjustment according to patient size were utilized for this exam. Comparison: Comparison is made to lumbar spine radiographs 09/15/2019 FINDINGS: For counting purposes, the last complete intervertebral disc space is considered L5-S1. There is a anterior compression deformity of L1 which appears chronic. Rudimentary ribs are seen bilaterally at L1. Degenerative changes are noted in the visualized spine. Vertebral body alignment is within normal limits. Surrounding soft tissues are unremarkable. IMPRESSION: Degenerative changes without evidence of acute bony injury. ACT 112: Negative or not required by law. Electronically signed by: John Wallis M.D. 03/11/2023 5:07 PM Tibia/Fibula X-Ray 03/11/23 15:30 XR knee RT 3V, XR tibia fibula RT 2V, XR ankle RT min 3V routine CLINICAL HISTORY: Trauma TECHNIQUE: 2 views of the right knee were obtained. 2 views of the right tibia and fibula were obtained. 3 views of the ankle were obtained. Comparison: None available at the time of this dictation. FINDINGS: Comminuted, mildly displaced fractures of the proximal fibular metaphysis and tibial metadiaphysis. Degenerative changes are seen in the knee joint. No joint effusion is seen. Soft tissue swelling is seen throughout the lower extremity and in the ankle. IMPRESSION: Comminuted, displaced fractures of the proximal fibular metaphysis and tibial metadiaphysis. No definite articular involvement. ACT 112: Negative or not required by law. Electronically signed by: John Wallis M.D. 03/11/2023 4:49 PM Ankle X-Ray 03/11/23 16:08 XR knee RT 3V, XR tibia fibula RT 2V, XR ankle RT min 3V routine CLINICAL HISTORY: Trauma TECHNIQUE: 2 views of the right knee were obtained. 2 views of the right tibia and fibula were obtained. 3 views of the ankle were obtained. Comparison: None available at the time of this dictation. FINDINGS: Comminuted, mildly displaced fractures of the proximal fibular metaphysis and tibial metadiaphysis. Degenerative changes are seen in the knee joint. No joint effusion is seen. Soft tissue swelling is seen throughout the lower extremity and in the ankle. IMPRESSION: Comminuted, displaced fractures of the proximal fibular metaphysis and tibial metadiaphysis. No definite articular involvement. ACT 112: Negative or not required by law. Electronically signed by: John Wallsi M.D. 03/11/2023 4:49 PM Chest X-Ray 03/11/23 17:03 XR chest 1V portable CLINICAL HISTORY: Pre-op TECHNIQUE: Single frontal radiograph of the chest was obtained. Comparison: Comparison is made to chest radiograph 10/13/2019 FINDINGS: No lines and tubes are seen. The cardiomediastinal silhouette is normal. The lungs are clear. No evidence of pleural effusion or pneumothorax. IMPRESSION: No acute chest disease. ACT 112: Negative or not required by law. Electronically signed by: John Wallis M.D. 03/11/2023 5:43 PM Hip/Pelvis X-Ray 03/11/23 17:51 XR hip RT 2V w pelvis CLINICAL HISTORY: pain, fall COMPARISON STUDY: Pelvis and right hip 09/15/2019. FINDINGS: There is a right total hip arthroplasty. The hardware is intact. No fracture or dislocation within the pelvis or hips. No abnormal periprosthetic lucency. Soft tissues are unremarkable. IMPRESSION: No fracture or dislocation within the pelvis or hips. ACT 112: Negative or not required by law. Electronically signed by: Baltazar Mendez M.D. 03/12/2023 7:[address] 03/12/23 07:[address] DOSE: 676.57 mGy.cm HISTORY: Right proximal tibia fx. Assess joint TECHNIQUE: Multiaxial CT images of the right knee were performed and reformatted in the sagittal and coronal plane without the use of contrast. A dose lowering technique was utilized adhering to the principles of ALARA. COMPARISON: Right knee radiograph 03/11/2023. FINDINGS: No fracture or dislocation within the distal right femur or patella. A small lipohemarthrosis. Subcutaneous hemorrhage noted within the proximal anteromedial lower leg. This is most pronounced on axial image 294 which demonstrates a 5.1 x 2.8 cm subcutaneous hematoma. There is a small of hemorrhage surrounding the proximal tibial and fibular fractures. Comminuted and mildly displaced fractures involving the head and proximal shaft of the fibula. There is associated medial angulation of the proximal fibular fractures. Comminuted and displaced fractures involving the proximal tibia. These extend to the articular surfaces of the medial and lateral tibial plateaus. The medial tibial plateau fracture is nondisplaced. The lateral tibial plateau fracture demonstrates up to 3 mm of depression laterally. The proximal tibial shaft fractures demonstrate mild anteromedial angulation and up to 12 mm of medial displacement. IMPRESSION: 1. Comminuted and displaced fractures involving the proximal tibia and fibula. The proximal tibial fractures involve the articular surfaces of the medial and lateral tibial plateaus as described above. 2. Small lipohemarthrosis within the right knee. 3. Subcutaneous hemorrhage within the proximal right lower leg including a 5.1 x 2.8 cm anteromedial subcutaneous hematoma. ACT 112: Negative or not required by law. Electronically signed by: Baltazar Mendez M.D. 03/12/2023 8:40 AM Tibia/Fibula X-Ray 03/13/23 12:00 [place] tibia/fibula RT 2V CLINICAL HISTORY: RIGHT ORIF TIB/FIB TECHNIQUE: 5 views were obtained with the C-arm in the OR with the above procedure. Total fluoroscopy time was 58.7 seconds. Radiation dose was 4.4 mGy. Comparison: Comparison is made to right knee radiographs 03/12/2023 FINDINGS/IMPRESSION: Intraoperative images were obtained of open reduction and internal fixation of right tibial fracture. Fracture fragments are in near- anatomic alignment. Please correlate with intraoperative fluoroscopy and operative report. ACT 112: Negative or not required by law. Electronically signed by: John Wallis M.D. 03/13/2023 3:09 PM Renal Ultrasound 03/15/23 08:47 RENAL ULTRASOUND HISTORY: Flank pain. Rule out hydronephrosis COMPARISON: None. FINDINGS: Right kidney: 8.7 cm. A 14 mm parapelvic cyst. No hydronephrosis. Normal corticomedullary differentiation and cortical thickness. Left kidney: 8.5 cm. No hydronephrosis. Normal corticomedullary differentiation and cortical thickness. Bladder: Decompressed by a Bond catheter. IMPRESSION: No hydronephrosis. ACT 112: Negative or not required by law. Electronically signed by: Baltazar Mendez M.D. 03/15/2023 9:55 AM Brain MRI 03/18/23 14:17 Exam(s): MRI HEAD Without Contrast EXAM: MR Head Without Intravenous Contrast CLINICAL HISTORY: Reason for exam: left sided vision loss. TECHNIQUE: Magnetic resonance images of the head/brain without intravenous contrast in multiple planes. COMPARISON: Comparison made to prior head CT from March 11, 2023. FINDINGS: Brain: There is a remote ischemic injury of the left capsule. There are tiny remote ischemic injuries of the cerebellum. No mass. No hemorrhage. No acute infarct. The flow voids of the base of the brain are intact. Ventricles: Unremarkable. No ventriculomegaly. Bones/joints: Ankylosis of C3 and C4, and C5 and C6. No acute fracture. Sinuses: Chronic ethmoid sinusitis. No acute sinusitis. Mastoid air cells: There is a tiny amount of fluid in the right mastoid air cells. No mastoid effusion. Orbits: Bilateral lens replacements. IMPRESSION: No evidence of acute intercranial pathology. Electronically signed by: Clemencia Patten MD 03/18/23 23:14 PM (1) Fracture of right tibia and fibula Encounter type: initial encounter Fracture type: closed Qualified Code(s): S82.201A - Unspecified fracture of shaft of right tibia, initial encounter for closed fracture; S82.401A - Unspecified fracture of shaft of right fibula, initial encounter for closed fracture (2) HTN (hypertension) Hypertension type: primary hypertension Qualified Code(s): I10 - Essential (primary) hypertension (4) Obesity Body mass index: BMI 35.0-35.9 Obesity classification: adult class 2 (BMI 35 - 39.9) Obesity type: due to excess calories Serious obesity comorbidity presence: with serious comorbidity Qualified Code(s): E66.01 - Morbid (severe) obesity due to excess calories; Z68.35 - Body mass index [BMI] 35.0-35.9, adult
[2023-03-19] MEDS: SENNA 8.6 MG TAB PO SCH (20:02)
--- NOTE | 2023-03-20 07:13 | Surgery Progress Note ---
Date of Service March 20, 2023 Assessment & Plan (1) Fracture of right tibia and fibula: Plan: 78-year-old female now 1 week out from ORIF of right proximal tibia fracture orthopedically doing well. She has had some medical issues which seem to be improving. Her pain is controlled. She is neurologically intact. Plan: 1. DVT prophylaxis including thigh-high teds SCDs. Mechanical prophylaxis probably only. If medically able 81 mg of aspirin twice a day would be ideal depending on her GI issues. 2. PT OT. She is nonweightbearing right leg. Knee immobilizer at all times. No knee range of motion. 3. Wound care. Just needs a daily dressing change to the right leg. 4. Disposition. She is orthopedically okay for discharge anytime medically stable. I need to see her back 2 to 3 weeks out from surgery date. Any orthopedic questions can direct me [phone] Admission and Anticipated Discharge Date Admission Date: March 11, 2023 Subjective 78-year-old female now 1 week out from ORIF of her right proximal tibial and tibial plateau fracture. Orthopedically she is done well. Pain seems to be getting a little bit better daily. No new complaints. Physical Exam Physical Exam: Physical exam shows a pleasant elderly female. She is lying in bed looks pretty comfortable this morning. Examination of the right leg reveals the dressing be clean dry and intact. She can dorsiflex and plantarflex her foot appropriately. She is neurologically intact. Results & Data Vital Signs (Past 12 Hours) Vital Signs Temp Pulse Resp BP Pulse Ox O2 Del Method 03/20/23 06:49 37 C 91 H 18 139/57 L 92 Room Air 03/19/23 19:56 36.9 C 88 18 159/74 H 98 Room Air PG Care Time/CCT Total # of Minutes Spent Total Time Spent with Patient: Total time spent is greater than 50% in coordination of care (as documented) at patient's floor/unit and/or counseling patient: Coding Level of Care Code 97514 Post Operative Follow-Up Diagnoses Closed fracture of right tibia and fibula, initial encounter S82.201A; S82.401A Encounter type: initial encounter Fracture type: closed (1) Fracture of right tibia and fibula Encounter type: initial encounter Fracture type: closed Qualified Code(s): S82.201A - Unspecified fracture of shaft of right tibia, initial encounter for closed fracture; S82.401A - Unspecified fracture of shaft of right fibula, initial encounter for closed fracture
[2023-03-20] MEDS: DOCUSATE SODIUM 100 MG CAP PO SCH (07:45)
[2023-03-20] MEDS: PANTOprazole 40 MG in SYRINGE 0 ML IV SCH (07:45)
[2023-03-20] MEDS: MULTIVITAMIN TAB PO SCH (07:45)
[2023-03-20] MEDS: ROSUVASTATIN CALCIUM 5 MG TAB PO SCH (07:45)
[2023-03-20] MEDS: ASCORBIC ACID 500 MG TAB PO SCH (07:45)
[2023-03-20] MEDS: oxyCODONE HCL IR 5 MG TAB (IMMEDIATE RELEASE) PO PRN (07:48)
[2023-03-20 09:04] LABS: Magnesium 1.6 mg/dl (1.7-2.4); Phosphorus 3.1 mg/dl (2.5-4.9)
[2023-03-20 11:28] LABS: Basophils # (auto) 0.04 K/uL (0.00-0.20); Basophils % (auto) 0.5 %; Eosinophils # (auto) 0.16 K/uL (0.00-0.50); Eosinophils % (auto) 1.9 %; Hematocrit (blood only) 26.9 % (37.0-47.0); Hemoglobin 8.9 g/dl (12.0-16.0); Immature Granulocytes # (auto) 0.18 K/uL (0.01-0.20); Immature Granulocytes % (auto) 2.1 %; Lymphocytes # (auto) 0.84 K/uL (1.20-3.40); Mean Corpuscular Hemoglobin 32.5 pg (25.0-34.0); Mean Corpuscular Hgb Conc 33.1 g/dL (32.0-36.0); Mean Corpuscular Volume 98.2 fL (80.0-100.0); Mean Platelet Volume 9.4 fL (9.4-12.4); Monocytes # (auto) 0.92 K/uL (0.11-0.59); Neutrophils # (auto) 6.24 K/uL (1.40-6.50); Neutrophils % (auto) 74.5 %; Nucleated RBC # (auto) 0.03 K/uL (0.00-0.12); Nucleated RBC % (auto) 0.4 %; Platelet Count 292 K/uL (130-400); RDW Coefficient of Variation 13.2 % (11.5-14.5); RDW Standard Deviation 47.2 fL (36.4-46.3); Red Blood Count 2.74 M/uL (4.20-5.40); White Blood Count 8.38 K/ul (4.8-10.8)
[2023-03-20 11:41] LABS: Calcium 8.4 mg/dl (8.6-10.3); Est GFR (African American) 66.1 ml/min; Potassium 4.3 mmol/L (3.5-5.1)
--- NOTE | 2023-03-20 12:42 | Discharge Summary ---
Discharge Summary Date of Service March 20, 2023 Notes For Next Care Provider Tibia/fibula 2/ fall, s/p ORIF of right tibia fracture on March 13, [address] Isaac, post op blood loss anemai, L vision loss Medication Changes From Visit Continue aspirin 81mg daily Increase rosuvastatin to 10mg daily Continue protonix 40mg daily while on aspirin. Admission HPI Per Admitting Provider This is a 78-year-old female with significant past medical history of HTN, HLD, CKD stage III, morbid obesity and anxiety who presents to ED secondary to right ankle pain. She was getting on a stepladder today trying to clean her kitchen cupboards whenever she fell off and landed on her right leg. She denies hitting her head or loss of consciousness. She was unable to get up and summoned EMS. She immediately complained of pain below the right knee. In ED pain below the right knee she underwent a tibia and fibula x-ray which revealed a comminuted, displaced fracture of the proximal fibular metaphases and tibial metadiaphysis. She underwent further imaging including lumbar spine CT, head CT, elbow x-ray and cervical spine CT revealing degenerative changes but no acute abnormality. Up until today's fall she had been doing well without any recent illness. She denies any recent fever, chills, sweats, lightheadedness, dizziness, chest pain, shortness breath, cough, URI symptoms, nausea, vomiting, abdominal pain, change in her bowel or urinary habits. From an orthopedic standpoint she does have a prior hip replacement from Dr. 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 She also has follow-up with Dr. Isaac and wishes for Dr. Isaac to do a surgical procedure if required. She also admits that she is able to ambulate 1 flight of steps or 1 city block without experiencing any chest pain or shortness of breath. Admission Exam Per Admitting Provider Constitutional: WD/WN, vitals as above, NAD, sitting up in bed, pleasant, conversing easily Head: Normocephalic, Atraumatic Eyes: PERRL, conjunctivae normal, anicteric sclerae ENMT: external ear and nose normal, oropharynx normal Neck: trachea midline, no thyromegaly normal visual inspection Respiratory: normal respiratory effort, lungs clear to auscultation, no wheeze, rales, rhonchi. Normal insp/exp effort, no accessory muscle use Cardiovascular: RRR, no murmur, no edema, obese lower ext Vessels: no JVD or carotid bruit Chest: normal inspection of chest Abdomen:obese abd, normal bowel sounds, soft, nontender, no hepatosplenomegaly Musculoskeletal: no cyanosis or clubbing, RLE NVI, pain to tibial plat,R foot inverted Skin: no rashes, warm and dry normal turgor Neurologic: PERRL, EOMI, accommodation nl, no face palsy, no dysarthria CN's II-XI intact bilaterally and moves all extremities Psychiatric: A+Ox3, euthymic affect Lymphatic: no cervical or axillary lymphadenopathy : deferred Principal Dx & Hospital Course #1 = Principal Diagnosis (1) Fracture of right tibia and fibula: (2) HTN (hypertension): (3) High cholesterol: (4) Obesity: Plan This is a 78-year-old female with significant past medical history of HTN, HLD, CKD stage III, morbid obesity and anxiety who presents to ED secondary to right ankle pain after a fall and Tibia/fibula x-ray showed comminuted, displaced fractures of the proximal fibular metaphysis and tibial metadiaphysis. Other imaging including CT head, lumbar spine, hip and pelvic x-ray do not show any acute findings. Underwent ORIF of right tibia fracture on March 13, [address] Isaac with weightbearing instructions for knee immobilizer at all times. No knee range of motion. Nonweightbearing right leg for the next 6 weeks. Should follow up with Dr. Isaac at [facility] orthopedics 2-3 weeks following surgery. Following surgery, patient with hemoglobin around 9 but steadily down trended over the next few days to hemoglobin of 6.8 while on aspirin 81 mg twice daily. Hemoglobin was held and patient was transfused with 1 unit PRBC with improved hemoglobin to 8.2. Underwent an EGD due to concern for GI bleed with fecal occult positive, but EGD was negative. Hemoglobin has remained stable at 8.9, and per discussion with Dr. Isaac today and weighing risk versus benefit of anticoagulating patient, particularly while she is on a strict nonweightbearing of right lower extremity for 6 weeks, will resume aspirin 81 mg for the next week with frequent CBC checks and if hemoglobin remains stable, consider increasing aspirin back to 81 mg twice daily dosing. Continue Protonix 40 mg daily during this time as well. No additional reports of bleeding. Lisinopril was held during admission for hyperkalemia and VENICE, which have both resolved. Resuming lisinopril/HCTZ medication with instruction to repeat BMP within 1 week to check potassium levels as well as renal function. Of note, patient described decreased visual acuity from the left eye, particularly superior medial visual field on 03/17. Underwent brain MRI that did not show any acute intracranial abnormality but evidence of remote ischemic injury in the past. Declined any additional neurological imaging such as CTA head/neck. Did discuss with Dr. Garza, salesperson men's hats on-call, who recommends follow-up in ophthalmology clinic next week for better evaluation of the optic nerve. Will increase rosuvastatin to 10 mg daily due to evidence of remote ischemic disease on brain MRI. Patient with Bond catheter in place due to significantly reduced mobility. Recommend trial of void at rehab once mobility improves. Patient comfortable and hemodynamically stable at time of discharge to rehab facility. Discharge Exam Gen: WD/WN, NAD, resting in bed, A&Ox3 HEENT: Normocephalic, atraumatic, conjunctivae moist, sclerae anicteric, mucous membranes moist Lung: Clear to Auscultation bilaterally, no wheezes/rales/rhonchi Heart: Regular rate, regular rhythm, no murmurs, rubs, or gallops Abdomen: Soft, NT, ND +BS x 4 Extremities: RLE with brace in place Skin: Warm, no rash, bruising R arm Updated Medication List Medication Instructions Recorded Confirmed Type aspirin 81 mg tablet,delayed 81 mg PO QAM 01/31/18 03/11/23 History release lisinopril 20 1 tab PO DAILY 01/31/18 03/11/23 History mg-hydrochlorothiazide 25 mg tablet lorazepam 0.5 mg tablet 0.5 mg PO TID PRN Anxiety 01/31/18 03/11/23 History clotrimazole-betamethasone 1 1 applic topical .APPLY SPARINGLY 01/18/20 03/11/23 History %-0.05 % topical cream TO AFFECTED AREA(S) 3 TIMES A DAY for 7-10 days as needed PRN Other magnesium 1 tab PO DAILY 12/20/23 12/20/23 History pantoprazole 40 mg tablet,delayed 40 mg PO DAILY #30 tabs 03/20/23 Rx release (Protonix) rosuvastatin 5 mg tablet 10 mg (2 x 5 mg) PO DAILY #60 tabs 03/20/23 03/11/23 Rx Hospital Stay Data Consultations 03/11/23 17:48 ED Decision to Admit Stat 03/12/23 07:00 Consult Orthopedic Surgery Routine 03/16/23 10:21 Consult Gastroenterology Routine Procedures Performed Operation Date: 03/18/23 16:30 Actual Procedures p Esophagogastroduodenoscopy - Balaji G. Case, DO Diagnostic Imagining Performed 03/11/23 15:30 CT cervical spine wo con Stat CT head/brain wo con Stat CT lumbar spine wo con Stat 03/12/23 07:09 CT knee RT wo con Urgent 03/13/23 11:44 US - OR guided needle placemen Routine 03/13/23 12:00 FL tibia/fibula RT 2V Routine 03/15/23 08:47 US Renal Bladder [US renal/blad retro comp] Routine 03/18/23 14:17 MR brain wo con Urgent Pending Results Patient Have Any Pending Studies at Discharge: No Discharge Instructions Given to Patient (Per Discharging Provider) MEDICATION CHANGES: Continue aspirin 81mg daily Increase rosuvastatin to 10mg daily Continue protonix 40mg daily while on aspirin. SUMMARY OF TEST RESULTS: You were admitted to hospital secondary to fall. Tibia/fibula x-ray showed comminuted, displaced fractures of the proximal fibular metaphysis and tibial metadiaphysis. Other imaging including CT head, lumbar spine, hip and pelvic x-ray do not show any acute findings. Status post ORIF of right tibia fracture on March 13, [address] Isaac PENDING TEST RESULTS: None RECOMMENDATIONS FOR FOLLOW-UP: Follow up with PCP as scheduled. Please follow up with Dr. Isaac in clinic for orthopedic follow-up 2-3 weeks from surgery date Follow up with Dr Arambula of ophthalmology at on Thursday, 03/30 at 9:15AM at [place] office for follow up of change to left eye vision Ortho dressing and weightbearing instructions as per Dr. Isaac below. Repeat BMP within 1 week to monitor potassium level and renal function. Please monitor hemoglobin Q2D as resuming DVT prophylaxis per discussion with Dr. Isaac - if hgb remains stable between 8-9, consider increasing back to 81mg BID. Continue medication regimen as scheduled aside from changes noted above. OTHER INSTRUCTIONS: Seek medical attention if you have: * temperature above 101 * chest pain or trouble breathing * abdominal pain, nausea, vomiting * diarrhea, dark stools or bloody stools * any unanswered questions or concerns Call 911 if symptoms are severe. Please take good care of yourself. Call if you have any questions or problems. You can reach a [facility] hospitalist on duty at [facility] 24 hours a day by calling [phone]. Total Time Total Time Spent Total Time Spent (In Minutes): 70 Supervising Physician Co-Signing Physician Notes Pt seen and examined by myself, Chrissy Kwon MD on the day of service. Care was coordinated with Sarika Isaac PA-C. 78yoF with right tib-fib fracture. Pain controlled. DVT prophylaxis per ortho- continue with aspirin 81mg daily at this time due to GI bleed, if H/H stable at 1 week check, please increase to aspirin 81mg BID once more. Concerned about her left eye, though vision improving. Declines further workup with Head and neck CTA, states she will follow up with private eye Dr. Arambula. Adamantly declines further workup, stating she has had too much done already. Denies Hx of CVA in the past indicated by MRI brain. PCP and Neurology follow up recommended in addition to ortho followup for fracture. Otherwise as above.
--- NOTE | 2023-03-23 13:24 | Coding Query ---
CODING QUERY To promote full compliance with coding requirements relating to patient care, provider participation is requested in all cases of clinical dietician uncertainty. Please assist us with the question(s) below: Please clarify the meaning of VENICE. VENICE is not a valid abbreviation. Thank you. ( x ) Acute Kidney Injury ( ) Acute Kidney Insufficiency ( ) Other (Specify): Principal Diagnosis: "that condition established after study, to be chiefly responsible for occasioning the admission of the patient to the hospital for care." Co-Existing Principal Diagnosis: "when two or more diagnoses equally meet the criteria for principal diagnosis as determined by the circumstances of admission, diagnostic work up, and/or therapy provided, and the Alphabetic Index, Tabular List, or another coding guideline does not provide sequencing direction, any one of the diagnoses may be sequenced first." "When the physician has documented what appears to be a current diagnosis in the body of the record, but has not included the diagnosis in the final diagnostic statement, the physician should be asked whether the diagnosis should be added." (Source Coding Clinic 2 QTR90. p3-4) RASHAAD
== END 2023-03-20 14:08 | DRG 493 ==
LOC: ED 14:48 → SUATTDRO 17:37 → 3N 17:37